=== PATIENT | female | born 1975 | race Caucasian/White ===

== ENCOUNTER → 2018-01-13 12:00 | Outpatient (CLI) | payer OTHER, SELFPAY ==
--- NOTE | 2018-01-13 12:04 | BI_ITS ---
MAMMOGRAPHY - BILATERAL SCREENING REASON FOR EXAM: Female, 42 years old. Routine annual screening examination. PERTINENT HISTORY: Non-contributory. TECHNIQUE: Digital bilateral breast mercedes (3D mammographic acquisition) in the CC and MLO projections. 2-D mediolateral oblique (MLO) and craniocaudad (CC) views of both breasts were obtained. CAD: Full Field Digital Mammography with Computer Added Detection was performed. COMPARISON: Comparison is made with prior study dated January 12, 2017 FINDINGS: Breast Composition: The breasts are heterogeneously dense, which may obscure small masses. There are no dominant masses or suspicious calcifications. No other significant abnormalities are identified. There has been no significant change since the prior study. BI/SCREENING MAMM (CAD), BILAT IMPRESSION: Stable bilateral screening mammogram. Yearly follow-up mammogram recommended. (A) ASSESSMENT CATEGORY: BIRADS Category 1: Negative. A letter regarding these results will be sent to the patient by the facility within 30 days. Approximately 10% of breast cancers are not detected by mammography. A normal mammogram should not delay biopsy of a clinically suspicious abnormality. [id number] Electronically Signed: Bryan Fowler MD at 13:12 EST Tel [phone], Service support ,
== END ==
PROVIDERS: Family Provider Internal Medicine; PCP Internal Medicine; Referring Provider Obstetrics & Gynecology; Visit Provider Obstetrics & Gynecology
DX: Z12.31 Encounter for screening mammogram for malignant neoplasm of breast (principal)
CPT/HCPCS: 77063; 77067

== ENCOUNTER → 2018-11-18 | Outpatient (CLI) | payer OTHER, SELFPAY ==
[2018-01-26 13:26] VITALS: BMI 21.6
[2018-11-18 09:23] LABS: Absolute Lymphocyte Count 1.48 X10^3/uL (0.83-4.51); Basophil# 0.02 X10^3/uL; Basophil% 0.4 % (0-1); Eosinophil# 0.11 X10^3/uL; Eosinophils% 2.2 % (0-5); Hematocrit 38.4 % (37-47); Hemoglobin 12.6 g/dL (12.0-15.0); Lymphocyte # 1.48 X10^3/ul (4.0); Lymphocyte % 29.2 % (19-41); Mean Corp Hgb Conc 32.8 g/dL (32-36); Mean Corpuscular Hgb 30.1 pg (27.0-32.0); Mean Corpuscular Volume 91.6 fL (81-99); Mean Platelet Vol. 10.1 fl (6.2-12.0); Monocyte# 0.41 X10^3/uL; Monocyte% 8.1 % (0-10); NRBC Flagged by Analyzer 0 % (0-5); Neutrophil # 3.04 X10^3/uL (2.7-7.7); Neutrophil % 59.9 % (47-70); Platelet Count 266 K/mm3 (150-450); RBC Distribution Width CV 13.1 % (11.6-14.6); RBC Distribution Width SD 43.9 fl (35.1-43.9); Red Blood Count 4.19 M/mm3 (4.2-5.4); White Blood Count 5.1 K/mm3 (4.4-11.0)
[2018-11-18 10:06] LABS: ALB/GLOB Ratio 1.3 RATIO (0.9-2.4); AST(SGOT) 11 U/L (15-37); Alanine Aminotransfer ALT/SGPT 21 U/L (13-56); Alkaline Phosphatase 43 U/L (45-117); Anion Gap 7 (5-15); BUN 13 mg/dL (7-18); BUN/Creat Ratio 17.4 RATIO (10-20); Calcium,Total 8.5 mg/dL (8.5-10.1); Chloride 105 mmol/L (98-107); Cholesterol 231 mg/dL (200); Creatinine, Serum 0.75 mg/dL (0.55-1.02); EST Glomerular Filtration Rate 90 mL/min (>60); Est Glom Filt Rate - Afr Amer 109 mL/min (>60); Globulin 3.1 g/dL (2.2-4.2); Glucose 92 mg/dL (74-106); High Density Lipoprotein 68 mg/dL; Potassium 3.8 mmol/L (3.5-5.1); Protein, Total 7.1 g/dL (6.4-8.2); Sodium Level 138 mmol/L (136-145); Triglycerides 76 mg/dL; Very Low Density Lipoprotein 15 mg/dL (5-40)
== END | disposition home or self-care (01) ==
PROVIDERS: Family Provider Internal Medicine; PCP Internal Medicine; Referring Provider Internal Medicine; Visit Provider Internal Medicine
DX: Z00.00 Encounter for general adult medical examination without abnormal findings (principal)
CPT/HCPCS: 36415; 80053; 80061; 85025

== ENCOUNTER → 2018-12-22 | Outpatient (CLI) | payer OTHER, SELFPAY ==
[2018-01-26 13:26] VITALS: BMI 21.6
--- NOTE | 2018-12-22 12:43 | BI_ITS ---
MAMMOGRAPHY - BILATERAL SCREENING REASON FOR EXAM: Female, 43 years old. Routine annual screening examination. PERTINENT HISTORY: Non-contributory. TECHNIQUE: Digital bilateral breast kathy (3D mammographic acquisition) in the CC and MLO projections. 2-D mediolateral oblique (MLO) and craniocaudad (CC) views of both breasts were obtained. CAD: Full Field Digital Mammography with Computer Added Detection was performed. COMPARISON: Comparison is made with prior study dated January 13, 2018 and January 12, 2017. FINDINGS: Breast Composition: The breasts are extremely dense, which lowers the sensitivity of mammography. There are no dominant masses or suspicious calcifications. No other significant abnormalities are identified. There has been no significant change since the prior study. BI/SCREEN MAMM (CAD) W/KATHY BILAT IMPRESSION: Stable bilateral screening mammogram. Yearly follow-up mammogram recommended. (A) ASSESSMENT CATEGORY: BIRADS Category 1: Negative. A letter regarding these results will be sent to the patient by the facility within 30 days. Approximately 10% of breast cancers are not detected by mammography. A normal mammogram should not delay biopsy of a clinically suspicious abnormality. [id number] Electronically Signed: Bryan Fowler, at 8:14 EST , Service support ,
== END | disposition home or self-care (01) ==
LOC: OPBI 12:41
PROVIDERS: Family Provider Internal Medicine; PCP Internal Medicine; Referring Provider Obstetrics & Gynecology; Visit Provider Obstetrics & Gynecology
DX: Z12.31 Encounter for screening mammogram for malignant neoplasm of breast (principal)
CPT/HCPCS: 77063; 77067

== ENCOUNTER → 2018-12-27 10:19 | Outpatient (CLI) | payer OTHER, SELFPAY ==
[2018-12-27 09:41] VITALS: BMI 21.6
--- NOTE | 2018-12-27 10:25 | RAD_ITS ---
STUDY: X-RAY - RIGHT FOOT CLINICAL: Female, 43 years old. Pain at the base of the fifth metatarsal following injury. TECHNIQUE: 3 view(s) of the foot. COMPARISON: None. FINDINGS: Normal talus, calcaneus, and tarsal bones. Normal visualized subtalar, talonavicular, calcaneocuboid, tarsal and tarsometatarsal articulations. Normal metatarsi. Normal metatarsophalangeal joint of the great toe. Normal tibial and fibular sesamoid bones. Normal interphalangeal joint of the great toe. Normal phalanges of the great toe. Normal second through fifth metatarsophalangeal joints. Normal interphalangeal joints and phalanges of the lesser toes. The soft tissue structures are unremarkable. RAD/Foot min 3 Views IMPRESSION: Normal x-ray examination of the foot. Electronically Signed: Bryan Fowler, at 11:00 EST , Service support ,
== END ==
PROVIDERS: Family Provider Internal Medicine; PCP Internal Medicine; Referring Provider Nurse Practitioner Family; Visit Provider Nurse Practitioner Family
DX: M79.671 Pain in right foot (principal)
CPT/HCPCS: 73630

== ENCOUNTER → 2019-03-21 | Outpatient (CLI) | payer OTHER, SELFPAY ==
[2019-01-19 10:34] VITALS: BMI 21.6
--- NOTE | 2019-03-21 16:00 | MRI_ITS ---
HISTORY: Sprain of the midfoot. Right side pain of foot. Injury occurred 12/26/2018. Burning pain on right side of right foot. Sprain of tarso-metatarsals Technique: Sagittal T1 and T2 fat sat, axial and coronal T1 and T2-weighted images were obtained. 185 images. Findings: A small ankle effusion is present. A small amount of fluid is present within the sinus Tarsi. Minimal arthritis is present at the first metatarsophalangeal joint with some edema within the distal end of the first metatarsal at the joint. A small first metatarsal joint effusion is present. No fracture is perceived. No malalignment is demonstrated. The plantar fascia appears normal without thickening. There is minimal subcutaneous edema within the superficial fat to the posterior aspect of the plantar fascia. The fat is preserved within the sinus Tarsi. Intrinsic muscles of the foot are normal in size, position and signal. Abnormal increased T1 weighted signal and slight increased T2-weighted signal is present within the extensor hallucis longus tendon MRI/Lower Ext/No Jt/w/o IMPRESSION: Small ankle effusion. Mild tendinosis to the extensor hallucis longus. No stress fracture to the cuboid. No evidence for peroneal insertional tendinosis. No evidence of lateral tarsometatarsal sprain. 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 at 0609 Reported and signed by: Kieran Gonsalez MD Electronically Signed: Kieran Gonsalez MD at 6:08 EST Tel , Service support ,
== END | disposition home or self-care (01) ==
LOC: MRI 15:29
PROVIDERS: PCP Internal Medicine; Referring Provider Podiatrist; Visit Provider Podiatrist
DX: M76.71 Peroneal tendinitis, right leg (principal); M84.374A Stress fracture, right foot, initial encounter for fracture; S93.621A Sprain of tarsometatarsal ligament of right foot, initial encounter
CPT/HCPCS: 73718

== ENCOUNTER → 2019-08-23 | Outpatient (CLI) | payer OTHER, SELFPAY ==
[2019-08-23 08:41] VITALS: BMI 21.6
[2019-08-30 16:15] LABS: HPV APTIMA, High Risk Negative (Negative)
== END | disposition home or self-care (01) ==
LOC: LABSPEC 17:09
PROVIDERS: PCP Internal Medicine; Referring Provider Obstetrics & Gynecology; Visit Provider Obstetrics & Gynecology
DX: Z12.4 Encounter for screening for malignant neoplasm of cervix (principal)
CPT/HCPCS: 87624; 88175; G0145

== ENCOUNTER → 2020-02-16 09:17 | Outpatient (CLI) | payer OTHER, SELFPAY ==
[2020-01-22 10:50] VITALS: BMI 21.6
[2020-02-16 09:51] LABS: Absolute Lymphocyte Count 1.56 X10^3/uL (0.83-4.51); Absolute Neutrophil Count 3.2 X10^3/uL (2.0-7.7); Basophil# 0.04 X10^3/uL; Basophil% 0.7 % (0-1); Eosinophil# 0.11 X10^3/uL; Hematocrit 38.2 % (37-47); Hemoglobin 12.3 g/dL (12.0-15.0); Lymphocyte # 1.56 X10^3/ul (4.0); Lymphocyte % 28.7 % (19-41); Mean Corp Hgb Conc 32.2 g/dL (32-36); Mean Corpuscular Hgb 30.1 pg (27.0-32.0); Mean Corpuscular Volume 93.6 fL (81-99); Mean Platelet Vol. 9.2 fl (6.2-12.0); Monocyte# 0.49 X10^3/uL; NRBC Flagged by Analyzer 0 % (0-5); Neutrophil # 3.22 X10^3/uL (2.7-7.7); Neutrophil % 59.4 % (47-70); Platelet Count 309 K/mm3 (150-450); RBC Distribution Width CV 12.2 % (11.6-14.6); RBC Distribution Width SD 42.5 fl (35.1-43.9); Red Blood Count 4.08 M/mm3 (4.2-5.4); White Blood Count 5.4 K/mm3 (4.4-11.0)
[2020-02-16 10:16] LABS: ALB/GLOB Ratio 1.3 RATIO (0.9-2.4); AST(SGOT) 13 U/L (15-37); Alanine Aminotransfer ALT/SGPT 24 U/L (13-56); Albumin, Serum 3.8 g/dL (3.2-5.0); Alkaline Phosphatase 44 U/L (45-117); Anion Gap 5 (5-15); BUN 11 mg/dL (7-18); BUN/Creat Ratio 15.7 RATIO (10-20); Calcium,Total 8.6 mg/dL (8.5-10.1); Chloride 107 mmol/L (98-107); Cholesterol 248 mg/dL (200); EST Glomerular Filtration Rate 97 mL/min (>60); Est Glom Filt Rate - Afr Amer 117 mL/min (>60); Glucose 87 mg/dL (74-106); High Density Lipoprotein 67 mg/dL; Potassium 3.7 mmol/L (3.5-5.1); Protein, Total 6.8 g/dL (6.4-8.2); Sodium Level 140 mmol/L (136-145); Triglycerides 96 mg/dL; Very Low Density Lipoprotein 19 mg/dL (5-40)
== END ==
PROVIDERS: PCP Internal Medicine; Referring Provider Internal Medicine; Visit Provider Internal Medicine
DX: Z00.00 Encounter for general adult medical examination without abnormal findings (principal)
CPT/HCPCS: 36415; 80053; 80061; 85025

== ENCOUNTER → 2020-02-27 12:40 | Outpatient (CLI) | payer OTHER, SELFPAY ==
[2020-01-22 10:50] VITALS: BMI 21.6
--- NOTE | 2020-02-27 12:41 | BI_ITS ---
MAMMOGRAPHY - BILATERAL SCREENING REASON FOR EXAM: Female, 44 years old. Routine annual screening examination. PERTINENT HISTORY: Non-contributory. TECHNIQUE: Digital bilateral breast kathy (3D mammographic acquisition) in the CC and MLO projections. 2-D mediolateral oblique (MLO) and craniocaudad (CC) views of both breasts were obtained. CAD: Full Field Digital Mammography with Computer Added Detection was performed. COMPARISON: Comparison is made with prior examination dated 12/22/2018 and 01/13/2018. FINDINGS: Breast Composition: The breasts are extremely dense, which lowers the sensitivity of mammography. There are no dominant masses or suspicious calcifications. No other significant abnormalities are identified. There has been no significant change since the prior study. BI/SCRN MAMM (CAD)W/KATHY BILAT IMPRESSION: Stable bilateral screening mammogram. Yearly follow-up mammogram recommended. (A) ASSESSMENT CATEGORY: BIRADS Category 1: Negative. A letter regarding these results will be sent to the patient by the facility within 30 days. Approximately 10% of breast cancers are not detected by mammography. A normal mammogram should not delay biopsy of a clinically suspicious abnormality. [id number] Electronically Signed: Bryan Fowler MD at 13:55 EST , Service support ,
== END ==
PROVIDERS: PCP Internal Medicine; Referring Provider Internal Medicine; Visit Provider Internal Medicine
DX: Z12.31 Encounter for screening mammogram for malignant neoplasm of breast (principal)
CPT/HCPCS: 77063; 77067

== ENCOUNTER → 2020-05-09 11:24 | Outpatient (CLI) | payer OTHER, SELFPAY ==
[2020-01-22 10:50] VITALS: BMI 21.6
[2020-05-09 13:49] LABS: NATERA MAILED SPECIMEN
== END ==
PROVIDERS: PCP Internal Medicine; Referring Provider Obstetrics & Gynecology; Visit Provider Obstetrics & Gynecology
DX: Z80.3 Family history of malignant neoplasm of breast (principal); Z80.42 Family history of malignant neoplasm of prostate
CPT/HCPCS: 36415

== ENCOUNTER → 2020-07-31 06:31 | Outpatient (CLI) | payer OTHER, SELFPAY ==
[2020-07-31 07:47] LABS: Cholesterol 273 mg/dL (200); High Density Lipoprotein 76 mg/dL; Triglycerides 126 mg/dL; Very Low Density Lipoprotein 25 mg/dL (5-40)
== END ==
PROVIDERS: PCP Internal Medicine; Referring Provider Internal Medicine; Visit Provider Internal Medicine
DX: E78.5 Hyperlipidemia, unspecified (principal)
CPT/HCPCS: 36415; 80061

== ENCOUNTER → 2020-09-27 08:10 | Outpatient (CLI) | payer OTHER, SELFPAY ==
[2020-09-27 09:16] LABS: ALB/GLOB Ratio 1.2 RATIO (0.9-2.4); AST(SGOT) 13 U/L (15-37); Alanine Aminotransfer ALT/SGPT 25 U/L (13-56); Albumin, Serum 3.8 g/dL (3.2-5.0); Alkaline Phosphatase 39 U/L (45-117); Anion Gap 6 (5-15); BUN 11 mg/dL (7-18); BUN/Creat Ratio 15.2 RATIO (10-20); Calcium,Total 8.5 mg/dL (8.5-10.1); Chloride 106 mmol/L (98-107); Cholesterol 196 mg/dL (200); Creatinine, Serum 0.72 mg/dL (0.55-1.02); EST Glomerular Filtration Rate 93 mL/min (>60); Est Glom Filt Rate - Afr Amer 112 mL/min (>60); Globulin 3.2 g/dL (2.2-4.2); Glucose 83 mg/dL (74-106); High Density Lipoprotein 66 mg/dL; Potassium 3.8 mmol/L (3.5-5.1); Sodium Level 140 mmol/L (136-145); T4 Free Direct 0.79 ng/dL (0.76-1.46); Triglycerides 81 mg/dL; Very Low Density Lipoprotein 16 mg/dL (5-40)
== END ==
PROVIDERS: PCP Internal Medicine; Referring Provider Internal Medicine; Visit Provider Internal Medicine
DX: E78.5 Hyperlipidemia, unspecified (principal)
CPT/HCPCS: 36415; 80053; 80061; 84439; 84443

== ENCOUNTER 2021-02-21 07:31 | Outpatient (CLI) | payer OTHER, SELFPAY ==
[2021-02-21 08:02] LABS: Absolute Lymphocyte Count 1.73 X10^3/uL (0.83-4.51); Absolute Neutrophil Count 3.2 X10^3/uL (2.0-7.7); Basophil# 0.04 X10^3/uL; Basophil% 0.7 % (0-1); Eosinophil# 0.16 X10^3/uL; Eosinophils% 2.9 % (0-5); Hematocrit 39.2 % (37-47); Lymphocyte # 1.73 X10^3/ul (0.83-4.51); Lymphocyte % 31.2 % (19-41); Mean Corp Hgb Conc 33.2 g/dL (32-36); Mean Corpuscular Hgb 30.8 pg (27.0-32.0); Mean Corpuscular Volume 92.9 fL (81-99); Mean Platelet Vol. 9.3 fl (6.2-12.0); Monocyte# 0.44 X10^3/uL; Monocyte% 7.9 % (0-10); NRBC Flagged by Analyzer 0 % (0-5); Neutrophil # 3.16 X10^3/uL (2.7-7.7); Neutrophil % 57.1 % (47-70); Platelet Count 285 K/mm3 (150-450); RBC Distribution Width CV 12.5 % (11.6-14.6); RBC Distribution Width SD 42.7 fl (35.1-43.9); Red Blood Count 4.22 M/mm3 (4.2-5.4); White Blood Count 5.5 K/mm3 (4.4-11.0)
[2021-02-21 08:25] LABS: ALB/GLOB Ratio 1.2 RATIO (0.9-2.4); AST(SGOT) 14 U/L (15-37); Alanine Aminotransfer ALT/SGPT 32 U/L (13-56); Albumin, Serum 4.1 g/dL (3.2-5.0); Alkaline Phosphatase 44 U/L (45-117); Anion Gap 4 (5-15); BUN 11 mg/dL (7-18); BUN/Creat Ratio 15.3 RATIO (10-20); Calcium,Total 9.1 mg/dL (8.5-10.1); Chloride 106 mmol/L (98-107); Cholesterol 229 mg/dL (200); Creatinine, Serum 0.72 mg/dL (0.55-1.02); EST Glomerular Filtration Rate 93 mL/min (>60); Est Glom Filt Rate - Afr Amer 113 mL/min (>60); Globulin 3.4 g/dL (2.2-4.2); Glucose 90 mg/dL (74-106); High Density Lipoprotein 83 mg/dL; Potassium 3.4 mmol/L (3.5-5.1); Protein, Total 7.5 g/dL (6.4-8.2); Sodium Level 139 mmol/L (136-145); Triglycerides 78 mg/dL; Very Low Density Lipoprotein 16 mg/dL (5-40)
== END 2021-02-21 23:59 | disposition short-term general hospital (02) ==
LOC: LAB 07:33
PROVIDERS: PCP Internal Medicine; Referring Provider Internal Medicine; Visit Provider Internal Medicine
DX: Z00.00 Encounter for general adult medical examination without abnormal findings (principal)
CPT/HCPCS: 36415; 80053; 80061; 85025

== ENCOUNTER 2021-03-04 12:49 | Outpatient (CLI) | payer OTHER, SELFPAY ==
--- NOTE | 2021-03-04 12:51 | BI_ITS ---
MAMMOGRAPHY - BILATERAL SCREENING REASON FOR EXAM: Female, 45 years old. Routine annual screening examination. PERTINENT HISTORY: Non-contributory. TECHNIQUE: Digital bilateral breast kathy (3D mammographic acquisition) in the CC and MLO projections. 2-D mediolateral oblique (MLO) and craniocaudad (CC) views of both breasts were obtained. CAD: Full Field Digital Mammography with Computer Added Detection was performed. COMPARISON: Comparison is made with prior study dated 08/26/2020 and 12/22/2018. FINDINGS: Breast Composition: The breasts are extremely dense, which lowers the sensitivity of mammography. 2 adjacent well-defined nodular densities are seen in the retroareolar region of the left breast. The larger measures 2 cm and most likely represent cysts. Correlation with ultrasound is recommended. No other significant abnormalities are identified. BI/SCRN MAMM (CAD)W/KATHY BILAT IMPRESSION: Findings suggestive of 2 adjacent well circumscribed nodular densities in the retroareolar areolar region of the left breast as described. Correlation with ultrasound is recommended. ASSESSMENT CATEGORY: BIRADS Category 2: Benign. A letter regarding these results will be sent to the patient by the facility within 30 days. Approximately 10% of breast cancers are not detected by mammography. A normal mammogram should not delay biopsy of a clinically suspicious abnormality. [id number] Electronically Signed: Bryan Fowler MD at 13:26 EST ,
== END 2021-03-04 23:59 | disposition short-term general hospital (02) ==
LOC: OPBI 12:49
PROVIDERS: PCP Internal Medicine; Referring Provider Nurse Practitioner Women's Health; Visit Provider Nurse Practitioner Women's Health
DX: Z12.31 Encounter for screening mammogram for malignant neoplasm of breast (principal)
CPT/HCPCS: 77063; 77067

== ENCOUNTER 2021-03-11 12:40 | Outpatient (CLI) | payer OTHER, SELFPAY ==
--- NOTE | 2021-03-11 12:41 | US_ITS ---
STUDY: ULTRASOUND BREAST - LEFT REASON FOR EXAM: Female, 45 years old. Abnormal screening mammogram. TECHNIQUE: Axial and longitudinal images of the LEFT breast were performed with a high resolution ultrasound transducer. # OF IMAGES: 18 COMPARISON: Comparison is made with prior mammogram dated 09/01/2021. FINDINGS: LEFT Breast: The retroareolar region of the left breast was examined by ultrasound. There is a 2.1 cm x 1.8 cm x 0.8 cm cyst at the 12 o''clock position of the breast. There is also evidence of a 1.6 cm x 2.5 cm x 1.1 cm cyst in the retroareolar region of the breast at the 6 o''clock position. US/Breast Limited Unilateral IMPRESSION: The mammographic abnormality corresponds to 2 adjacent cysts. Routine mammographic follow-up is recommended. ASSESSMENT CATEGORY: BIRADS Category 2: Benign. A letter regarding these results will be sent to the patient by the facility within 30 days. Electronically Signed: Bryan Fowler MD at 13:52 EST ,
== END 2021-03-11 23:59 | disposition short-term general hospital (02) ==
LOC: OPUS 12:41
PROVIDERS: PCP Internal Medicine; Referring Provider Nurse Practitioner Women's Health; Visit Provider Nurse Practitioner Women's Health
DX: R92.8 Other abnormal and inconclusive findings on diagnostic imaging of breast (principal)
CPT/HCPCS: 76642

== ENCOUNTER 2021-03-19 06:25 | Day surgery (SDC) | payer OTHER, SELFPAY ==
[2021-03-19 06:58] VITALS: BP 117/71; PULSE 61; RESP 15; TEMP 36.2; O2SAT 100; BMI 21.2
[2021-03-19] MEDS: Lactated Ringers 1,000 ML 15 ML IV (07:02)
--- NOTE | 2021-03-19 07:12 | HP.PCM_ITS ---
HPI - General HPI Narrative MARKY LOPEZ, is a 45 F who presents for screening colonoscopy secondary to age. They are referred for surgical consultation from Dr. Goldberg. Patient has not had prior colonoscopy. 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 Patient has no personal history of inflammatory bowel disease, diverticulitis, or colon cancer. They describe their bowel habits as normal without blood, or straining. Patient has no family history of inflammatory bowel disease, diverticulitis, or colon cancer. Patient completed her prep prior to today's procedure and states that everything in terms of her output is clear. [facility] Medical History Colon cancer screening Hyperlipidemia Non-smoker Preventative health care Wears contact lenses Home Medications atorvastatin 10 mg tablet 10 mg PO DAILY #90 tab 11/13/20 [Rx Last Taken Unknown] [id number] [Women's Daily Multivitamin] 1 tab PO DAILY 08/28 [History Last Taken Unknown] Allergy/AdvReac Type Severity Reaction Status Date / Time No Known Allergies Allergy Verified 03/19/21 06:41 Family History Father Hypertension Cancer Skin Mother Cancer Ovarian -BRCA neg Surgical History delivery delivered H/O dilation and curettage Hx of tubal ligation Social History household members: spouse and children number of children: 5 Smoking Status: Never smoker alcohol intake: never substance use type: does not use caffeine: Yes what type of physical activity do you participate in: none, walking and weight training seatbelt use: always do you feel safe at home: Yes additional social history: - 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 Past Medical/Surgical History Planned Operation Planned Operative Procedure/s: CSCOPE OA Previous Hospitalizations/Surgeries HX Hospitalizations: No Any Problems With Anesthesia: No You/Your Family Experience Fever (Hyperthermia) With Anes: No Cholinesterase deficiency: No Cardiovascular Hx of Irregular Heartbeat and/or Afib: No Hx Heart Attack: No Hx Congestive Heart Failure: No Hx Hypertension: No Hx Pacemaker: No Respiratory Hx Chronic Obstructive Pulmonary Disease (COPD): No Hx Asthma: No Hx Emphysema: No Hx Sleep Apnea: No Hx Respiratory Tract Infection/Cold (presently): No Do You Snore Loudly (louder than talking or can be heard): No Do You Often Feel Tired/ Fatigued/ Sleepy Dring Daytime?: No Has Anyone Observed You Stop Breathing During Sleep?: No Result (for STOP score): Negative Smoking Status: Never smoker Gastrointestinal Hx Gastroesophageal Reflux: No Hx Ulcer: No Neurological Hx Seizures: No Hx Head/Neck Injury: No Hx Headaches: No Hx Back Injury/Pain: No Does patient have nerve stimulator: No Reproduction : No Miscellaneous Recent Exposure to Contagious Disease: No Allergies No Known Allergies Allergy (Verified 03/19/21 06:41) Discharge Is Pt Admitted From a Group Home, or a Senior Care: No After D/C, Where Do you Plan to Go: Return Home Vital Signs Vital Signs Vital Signs: 03/19/21 06:58 Temperature 97.1 F L Temperature Source Temporal Pulse Rate 61 Respiratory Rate 15 Respiratory Pattern Normal Blood Pressure 117/71 Blood Pressure Mean 86 Blood Pressure Source Monitor Blood Pressure Position Supine Blood Pressure Location Right Arm Pulse Ox 100 Oxygen Delivery Method Room Air Weight Weight: 123 lb 7.342 oz Body Mass Index (BMI) 21.2 Physical Exam Const alert, oriented x3 and no apparent distress General Appearance: cooperative and comfortable GI Inspection: Negative for abdominal distention or scar Palpation: soft; Negative for tender Assessment & Plan Assessment/Plan (1) Colon cancer screening: PLAN: This is a 45-year-old female who presents with no personal or family history that increases her risk for colon cancer. She presents for screening colonoscopy today. She confirms that her prep is now complete with clear output. We reviewed the expectations of the procedure as well as how results are obtained. She agrees to proceed as described. Therefore we will proceed to the endoscopy suite for colonoscopy under local MAC as previously planned. Surgery Risks - Colonoscopy Risks Include but are not Limited To: Risks include but are not limited to: Bleeding, perforation requiring further surgery, inability to complete colonoscopy requiring barium enema.
[2021-03-19 08:05] VITALS: BP 117/71; BP 96/68; PULSE 66; RESP 16; TEMP 36.8; O2SAT 100
[2021-03-19 08:10] VITALS: BP 117/71; BP 95/66; PULSE 62; RESP 16; O2SAT 100
--- NOTE | 2021-03-19 08:11 | OP.COLON_ITS ---
Patient Name: Carina Diamond Procedure Date: 03/19/2021 7:17 AM Date of : 1975 Age: 45 Procedure: Colonoscopy Indications: Screening for colorectal malignant neoplasm Providers: Luciano Colon MD Referring MD: Fela Goldberg MD Medicines: See the Anesthesia note for documentation of the administered medications Patient Profile: This is a 45 year old female. Last Colonoscopy: none. The patient's first colonoscopy is today. Complications: No immediate complications. Estimated blood loss: Minimal. Procedure: Pre-Anesthesia Assessment: - The heart rate, respiratory rate, oxygen saturations, blood pressure, adequacy of pulmonary ventilation, and response to care were monitored throughout the procedure. After I obtained informed consent, the scope was passed under direct vision. Throughout the procedure, the patient's blood pressure, pulse, and oxygen saturations were monitored continuously. The colonoscope was introduced through the anus and advanced to the cecum, identified by the appendiceal orifice. The colonoscopy was performed without difficulty. The quality of the bowel preparation was good. Scope In: 7:35:56 AM Scope Withdrawal Time 0 hours 11 minutes 24 seconds Scope Out: 8:00:09 AM Total Procedure Duration Time 0 hours 24 minutes 13 seconds Findings: A few small-mouthed diverticula were found in the distal sigmoid colon. No biopsies or other specimens were collected for this exam. The exam was otherwise without abnormality on direct and retroflexion views. Impression: - Diverticulosis in the distal sigmoid colon. No specimens collected. - The examination was otherwise normal on direct and retroflexion views. Recommendation: - Discharge patient to home (via wheelchair). - Resume regular diet today. - Repeat colonoscopy in 10 years for screening purposes. - Continue present medications. - Use original regular Metamucil one tablespoon PO BID today. Procedure Code(s): --- Professional --- 91454, Colonoscopy, flexible; diagnostic, including collection of specimen(s) by brushing or washing, when performed (separate procedure) Diagnosis Code(s): --- Professional --- Z12.11, Encounter for screening for malignant neoplasm of colon K57.30, Diverticulosis of large intestine without perforation or abscess without bleeding CPT copyright 2017 [employer]. All rights reserved. The codes documented in this report are preliminary and upon hospitality intern review may be revised to meet current compliance requirements. Luciano Colon MD 03/19/2021 8:10:42 AM This report has been signed electronically. Number of Addenda: 0 Note Initiated On: 03/19/2021 7:17 AM
--- NOTE | 2021-03-19 08:12 | OP.CCLET_ITS ---
03/19/2021 Fela Goldberg MD [address] [place] [address] [place] [address] Re : Colonoscopy procedure for Carina Diamond Dear Dr. Goldberg This procedure was performed on March. My impressions and recommendations are as follows: Impressions : - Diverticulosis in the distal sigmoid colon. No specimens collected. - The examination was otherwise normal on direct and retroflexion views. Recommendations : - Discharge patient to home (via wheelchair). - Resume regular diet today. - Repeat colonoscopy in 10 years for screening purposes. - Continue present medications. - Use original regular Metamucil one tablespoon PO BID today. My findings are described in the full procedure note, which is enclosed. If I can be of further assistance, please feel free to contact me at Doctor phone number(s): , Work: . Sincerely, Luciano Colon MD 03/19/2021 8:10:42 AM This report has been signed electronically.
[2021-03-19 08:15] VITALS: BP 100/73; BP 117/71; PULSE 61; RESP 16; O2SAT 100
[2021-03-19 08:20] VITALS: BP 117/71; BP 97/61; PULSE 60; RESP 16; TEMP 36.8; O2SAT 100
[2021-03-19 08:33] VITALS: BP 117/71
== END 2021-03-19 23:59 | disposition home or self-care (01) ==
LOC: EN 06:26 → AC 06:26
PROVIDERS: PCP Internal Medicine; Referring Provider Internal Medicine; Visit Provider Surgery
PROC: 0DJD8ZZ Inspection of Lower Intestinal Tract, Via Natural or Artificial Opening Endoscopic (ICD-10-PCS; CPT 45378; principal; 2021-03-19 07:25)
DX: Z12.11 Encounter for screening for malignant neoplasm of colon (principal); K57.30 Diverticulosis of large intestine without perforation or abscess without bleeding; E78.5 Hyperlipidemia, unspecified
CPT/HCPCS: 45378; J7120; J2405

== ENCOUNTER → 2021-11-16 | Outpatient (CLI) | payer OTHER, SELFPAY ==
--- NOTE | 2021-11-16 13:04 | RAD_ITS ---
STUDY: X-RAY - RIGHT HAND REASON FOR EXAM: Female, 46 years old. Pain following injury to the fifth metacarpal. TECHNIQUE: 3 view(s) of the hand. COMPARISON: None. FINDINGS: Normal radiocarpal articulation. Normal distal radioulnar joint. Normal visualized carpal bones. Normal carpal articulations Normal carpometacarpal articulation of the thumb. Normal second through fifth carpometacarpal joints. Normal metacarpi. Normal metacarpophalangeal joint of the thumb. Normal interphalangeal joint of the thumb. Normal proximal and distal phalanges of the thumb. Normal metacarpophalangeal joints of the second through fifth fingers. Normal proximal and distal interphalangeal joints of the second through fifth fingers. Normal phalanges of the second through fifth fingers. The soft tissue structures are unremarkable. RAD/Hand Min 3 Views IMPRESSION: Normal x-ray examination of the hand. Electronically Signed: Bryan Fowler MD at 13:26 EDT ,
== END | disposition home or self-care (01) ==
LOC: MTRAD 13:02
PROVIDERS: PCP Internal Medicine; Referring Provider Physician Assistant Surgical; Visit Provider Physician Assistant Surgical
DX: S60.221A Contusion of right hand, initial encounter (principal)
CPT/HCPCS: 73130

== ENCOUNTER → 2022-02-11 | Outpatient (CLI) | payer OTHER, SELFPAY ==
[2022-02-11 10:27] LABS: Absolute Lymphocyte Count 1.23 X10^3/uL (0.83-4.51); Absolute Neutrophil Count 3.3 X10^3/uL (2.0-7.7); Basophil# 0.04 X10^3/uL; Basophil% 0.8 % (0-1); Eosinophil# 0.08 X10^3/uL; Eosinophils% 1.6 % (0-5); Lymphocyte # 1.23 X10^3/ul (0.83-4.51); Lymphocyte % 24.3 % (19-41); Mean Corp Hgb Conc 31.7 g/dL (32-36); Mean Corpuscular Hgb 30.2 pg (27.0-32.0); Mean Corpuscular Volume 95.3 fL (81-99); Mean Platelet Vol. 9.7 fl (6.2-12.0); Monocyte# 0.42 X10^3/uL; Monocyte% 8.3 % (0-10); NRBC Flagged by Analyzer 0 % (0-5); Neutrophil # 3.27 X10^3/uL (2.7-7.7); Neutrophil % 64.6 % (47-70); Platelet Count 321 K/mm3 (150-450); RBC Distribution Width CV 12.2 % (11.6-14.6); RBC Distribution Width SD 42.9 fl (35.1-43.9); White Blood Count 5.1 K/mm3 (4.4-11.0)
[2022-02-11 11:09] LABS: BUN 11 mg/dL (7-18); Creatinine, Serum 0.72 mg/dL (0.55-1.02); Glucose 96 mg/dL (74-106)
[2022-02-11 11:10] LABS: ALB/GLOB Ratio 1.4 RATIO (0.9-2.4); AST(SGOT) 15 U/L (15-37); Alanine Aminotransfer ALT/SGPT 27 U/L (13-56); Albumin, Serum 4.1 g/dL (3.2-5.0); Alkaline Phosphatase 42 U/L (45-117); Anion Gap 6 (5-15); BUN/Creat Ratio 15.3 RATIO (10-20); Calcium,Total 8.7 mg/dL (8.5-10.1); Chloride 105 mmol/L (98-107); Cholesterol 226 mg/dL (200); EST Glomerular Filtration Rate 93 mL/min (>60); Est Glom Filt Rate - Afr Amer 112 mL/min (>60); High Density Lipoprotein 76 mg/dL; Potassium 3.7 mmol/L (3.5-5.1); Protein, Total 7.1 g/dL (6.4-8.2); Sodium Level 138 mmol/L (136-145); Triglycerides 100 mg/dL; Very Low Density Lipoprotein 20 mg/dL (5-40)
== END | disposition home or self-care (01) ==
LOC: MTLAB 08:19
PROVIDERS: PCP Internal Medicine; Referring Provider Internal Medicine; Visit Provider Internal Medicine
DX: Z00.00 Encounter for general adult medical examination without abnormal findings (principal)
CPT/HCPCS: 36415; 80053; 80061; 85025

== ENCOUNTER → 2022-03-05 | Outpatient (CLI) | payer OTHER, SELFPAY ==
--- NOTE | 2022-03-05 08:44 | BI_ITS ---
MAMMOGRAPHY - BILATERAL SCREENING REASON FOR EXAM: Female, 46 years old. Routine annual screening examination. PERTINENT HISTORY: Non-contributory. TECHNIQUE: Digital bilateral breast kathy (3D mammographic acquisition) in the CC and MLO projections. 2-D mediolateral oblique (MLO) and craniocaudad (CC) views of both breasts were obtained. CAD: Full Field Digital Mammography with Computer Added Detection was performed. COMPARISON: Comparison is made with prior study dated 03/04/2021 and 02/27/2020. FINDINGS: Breast Composition: The breasts are extremely dense, which lowers the sensitivity of mammography. 2 adjacent well-defined nodules are seen in the retroareolar region of the left breast. The larger measures 2.5 cm x 3.6 cm. This has increased in size as compared to prior study. 2 adjacent well-defined nodules are seen in the upper lateral aspect of the left breast. The larger measures 3 cm x 2.4 cm. These most likely represent cysts. Repeat sonogram is recommended for further evaluation. No other significant abnormalities are identified. BI/SCRN MAMM (CAD)W/KATHY BILAT IMPRESSION: Bilateral breast nodules as described. Follow-up targeted ultrasound is recommended. ASSESSMENT CATEGORY: BIRADS Category 0: Incomplete. Need additional imaging evaluation. A letter regarding these results will be sent to the patient by the facility within 30 days. Approximately 10% of breast cancers are not detected by mammography. A normal mammogram should not delay biopsy of a clinically suspicious abnormality. [id number] Electronically Signed: Bryan Fowler MD at 9:35 EST ,
== END | disposition home or self-care (01) ==
LOC: OPBI 08:42
PROVIDERS: PCP Internal Medicine; Referring Provider Registered Nurse; Visit Provider Registered Nurse
DX: Z12.31 Encounter for screening mammogram for malignant neoplasm of breast (principal)
CPT/HCPCS: 77063; 77067

== ENCOUNTER → 2022-03-08 | Outpatient (CLI) | payer OTHER, SELFPAY ==
--- NOTE | 2022-03-08 08:38 | US_ITS ---
STUDY: ULTRASOUND BREAST - LEFT REASON FOR EXAM: Female, 46 years old. Abnormal screening mammogram. TECHNIQUE: Axial and longitudinal images of the LEFT breast were performed with a high resolution ultrasound transducer. # OF IMAGES: 26 COMPARISON: Comparison is made with prior mammogram dated the directly 2022. Comparison is also made of a prior sonogram of the left breast dated 03/11/2021. FINDINGS: LEFT Breast: 3 cysts are seen in the retroareolar region of the breast. The largest cyst measures 2.9 cm x 2.2 cm x 1.3 cm. This has increased in size as compared to prior study. US/Breast Limited Unilateral IMPRESSION: 3 adjacent cysts in the retroareolar region of the left breast as described. Routine mammographic follow-up recommended. ASSESSMENT CATEGORY: BIRADS Category 2: Benign. A letter regarding these results will be sent to the patient by the facility within 30 days. Electronically Signed: Bryan Fowler MD at 14:05 EST ,
== END | disposition home or self-care (01) ==
PROVIDERS: PCP Internal Medicine; Visit Provider Registered Nurse
DX: R92.8 Other abnormal and inconclusive findings on diagnostic imaging of breast (principal)
CPT/HCPCS: 76642

== ENCOUNTER → 2022-12-06 | Outpatient (CLI) | payer OTHER, SELFPAY ==
--- NOTE | 2022-12-06 09:34 | BI_ITS ---
MAMMOGRAPHY - BILATERAL DIAGNOSTIC REASON FOR EXAM: Female, 47 years old. Right breast lump. PERTINENT HISTORY: Non-contributory. TECHNIQUE: Digital bilateral breast mercedes (3D mammographic acquisition) in the CC and MLO projections. 2-D mediolateral oblique (MLO) and craniocaudad (CC) views of both breasts were obtained. CAD: Full Field Digital Mammography with Computer Added Detection was performed. COMPARISON: Comparison is made with prior study dated March 05, 2022 and FINDINGS: Breast Composition: The breasts are extremely dense, which lowers the sensitivity of mammography. There is a dominant 3.6 cm x 2.7 cm well-defined nodule in the upper outer aspect of the left breast. There is also evidence of a 1.8 cm x 1.7 cm well-defined nodule in the inferior medial portion of the left breast. Correlation with ultrasound is recommended. There are well-defined nodules in the right breast as well. Correlation with ultrasound is recommended. No other significant abnormalities are identified. BI/DIAG MAMM W/CAD, BILAT IMPRESSION: Bilateral well-defined breast nodules as described. Correlation with ultrasound is recommended. ASSESSMENT CATEGORY: BIRADS Category 0: Incomplete. Need additional imaging evaluation. A letter regarding these results will be sent to the patient by the facility within 30 days. Approximately 10% of breast cancers are not detected by mammography. A normal mammogram should not delay biopsy of a clinically suspicious abnormality. Electronically Signed: Bryan Fowler MD at 11:23 EDT ,
--- NOTE | 2022-12-06 09:34 | US_ITS ---
STUDY: ULTRASOUND BREAST - RIGHT REASON FOR EXAM: Female, 47 years old. Abnormal screening mammogram. TECHNIQUE: Axial and longitudinal images of the RIGHT breast were performed with a high resolution ultrasound transducer. # OF IMAGES: 33 COMPARISON: Comparison is made with prior mammogram done earlier in the day. FINDINGS: RIGHT Breast: Several cysts are seen in the right breast. The largest cyst is at the 9:00 position of the breast at 3 cm from the nipple. This measures 2.7 cm x 2.1 cm x 1.7 cm. There is also evidence of 2 cysts at the 9:00 position of the breast at 4 cm from the nipple. IMPRESSION: Breast cysts. ASSESSMENT CATEGORY: BIRADS Category 2: Benign. A letter regarding these results will be sent to the patient by the facility within 30 days. Electronically Signed: Bryan Fowler MD at 12:44 EDT , STUDY: ULTRASOUND BREAST - LEFT REASON FOR EXAM: Female, 47 years old. Abnormal screening mammogram. TECHNIQUE: Axial and longitudinal images of the LEFT breast were performed with a high resolution ultrasound transducer. # OF IMAGES: 33 COMPARISON: Comparison is made with prior mammogram done earlier today. FINDINGS: LEFT Breast: Multiple cysts are seen. The largest cyst is seen at the 12:00 retroareolar position of the breast measuring 3.3 cm x 2.5 cm x 1.4 cm. US/Breast Limited Unilateral IMPRESSION: Left breast cyst. ASSESSMENT CATEGORY: BIRADS Category 2: Benign. A letter regarding these results will be sent to the patient by the facility within 30 days. Electronically Signed: Bryan Fowler MD at 12:45 EDT ,
== END | disposition home or self-care (01) ==
LOC: OPBI 09:33
PROVIDERS: PCP Internal Medicine; Referring Provider Registered Nurse; Visit Provider Registered Nurse
DX: R92.8 Other abnormal and inconclusive findings on diagnostic imaging of breast (principal); N63.0 Unspecified lump in unspecified breast
CPT/HCPCS: 76642; 77062; 77066; G0279

== ENCOUNTER → 2023-01-21 | Outpatient (CLI) | payer OTHER, SELFPAY ==
[2023-01-21 12:23] LABS: Absolute Lymphocyte Count 1.36 X10^3/uL (0.83-4.51); Absolute Neutrophil Count 3.7 X10^3/uL (2.0-7.7); Basophil# 0.03 X10^3/uL; Basophil% 0.5 % (0-1); Eosinophil# 0.07 X10^3/uL; Eosinophils% 1.3 % (0-5); Hematocrit 38.4 % (37-47); Hemoglobin 12.6 g/dL (12.0-15.0); Lymphocyte # 1.36 X10^3/ul (0.83-4.51); Lymphocyte % 24.5 % (19-41); Mean Corp Hgb Conc 32.8 g/dL (32-36); Mean Corpuscular Hgb 30.7 pg (27.0-32.0); Mean Corpuscular Volume 93.7 fL (81-99); Mean Platelet Vol. 9.6 fl (6.2-12.0); Monocyte# 0.43 X10^3/uL; Monocyte% 7.7 % (0-10); NRBC Flagged by Analyzer 0 % (0-5); Neutrophil # 3.65 X10^3/uL (2.7-7.7); Neutrophil % 65.6 % (47-70); Platelet Count 286 K/mm3 (150-450); RBC Distribution Width CV 12.4 % (11.6-14.6); RBC Distribution Width SD 42.7 fl (35.1-43.9); White Blood Count 5.6 K/mm3 (4.4-11.0)
[2023-01-21 12:34] LABS: ALB/GLOB Ratio 1.3 RATIO (0.9-2.4); AST(SGOT) 19 U/L (15-37); Alanine Aminotransfer ALT/SGPT 29 U/L (13-56); Albumin, Serum 3.9 g/dL (3.2-5.0); Alkaline Phosphatase 39 U/L (45-117); Anion Gap 6 (5-15); BUN 9 mg/dL (7-18); BUN/Creat Ratio 14.4 RATIO (10-20); Calcium,Total 8.6 mg/dL (8.5-10.1); Chloride 104 mmol/L (98-107); Cholesterol 160 mg/dL (200); Creatinine, Serum 0.63 mg/dL (0.55-1.02); EST Glomerular Filtration Rate 108 mL/min (>60); Est Glom Filt Rate - Afr Amer 131 mL/min (>60); Glucose 89 mg/dL (74-106); High Density Lipoprotein 64 mg/dL; Potassium 3.7 mmol/L (3.5-5.1); Protein, Total 6.9 g/dL (6.4-8.2); Sodium Level 138 mmol/L (136-145); Triglycerides 76 mg/dL; Very Low Density Lipoprotein 15 mg/dL (5-40)
== END | disposition home or self-care (01) ==
LOC: BIMLAB 10:25
PROVIDERS: PCP Internal Medicine; Referring Provider Internal Medicine; Visit Provider Internal Medicine
DX: Z00.00 Encounter for general adult medical examination without abnormal findings (principal)
CPT/HCPCS: 36415; 80053; 80061; 85025

== ENCOUNTER → 2023-05-17 | Outpatient (CLI) | payer OTHER, SELFPAY ==
--- NOTE | 2023-05-17 11:31 | RAD_ITS ---
STUDY: X-RAY - LEFT FOOT CLINICAL: Female, 47 years old. left foot pain TECHNIQUE: 3 view(s) of the foot. COMPARISON: None. FINDINGS: Normal talus, calcaneus, and tarsal bones. Normal visualized subtalar, talonavicular, calcaneocuboid, tarsal and tarsometatarsal articulations. Normal metatarsi. Normal metatarsophalangeal joint of the great toe. Normal tibial and fibular sesamoid bones. Normal interphalangeal joint of the great toe. Normal phalanges of the great toe. Normal second through fifth metatarsophalangeal joints. Normal interphalangeal joints and phalanges of the lesser toes. The soft tissue structures are unremarkable. RAD/Foot min 3 Views IMPRESSION: Normal x-ray examination of the foot. Electronically Signed: Mahendra Sharpe MD at 20:42 EDT ,
== END | disposition home or self-care (01) ==
LOC: MTRAD 11:31
PROVIDERS: PCP Internal Medicine; Referring Provider Nurse Practitioner; Visit Provider Nurse Practitioner
DX: M21.612 Bunion of left foot (principal)
CPT/HCPCS: 73630

== ENCOUNTER → 2023-12-30 | Outpatient (CLI) | payer OTHER, SELFPAY ==
--- NOTE | 2023-12-30 13:33 | BI_ITS ---
MAMMOGRAPHY - BILATERAL SCREENING REASON FOR EXAM: Female, 48 years old. Routine annual screening examination. PERTINENT HISTORY: Non-contributory. TECHNIQUE: Digital bilateral breast kathy (3D mammographic acquisition) in the CC and MLO projections. 2-D mediolateral oblique (MLO) and craniocaudad (CC) views of both breasts were obtained. CAD: Full Field Digital Mammography with Computer Added Detection was performed. COMPARISON: Comparison is made with prior study dated December 06, 2022 and March 05, 2022. FINDINGS: Breast Composition: The breasts are extremely dense, which lowers the sensitivity of mammography. Since prior study, there has been a decrease in the size and number of nodules in both breasts as compared to prior study. These were demonstrated to be cysts on prior sonogram. No other significant abnormalities are identified. BI/SCRN MAMM (CAD)W/KATHY BILAT IMPRESSION: Interval decrease in size and number of the nodules in both breasts as described. Routine follow-up recommended.. Yearly follow-up mammogram recommended. (A) ASSESSMENT CATEGORY: BIRADS Category 2: Benign. A letter regarding these results will be sent to the patient by the facility within 30 days. Approximately 10% of breast cancers are not detected by mammography. A normal mammogram should not delay biopsy of a clinically suspicious abnormality. [id number] Electronically Signed: Bryan Fowler MD at 14:23 EST ,
== END | disposition home or self-care (01) ==
LOC: OPBI 13:33
PROVIDERS: PCP Internal Medicine; Referring Provider Nurse Practitioner Family; Visit Provider Nurse Practitioner Family
DX: Z12.31 Encounter for screening mammogram for malignant neoplasm of breast (principal)
CPT/HCPCS: 77063; 77067

== ENCOUNTER → 2024-02-20 | Outpatient (CLI) | payer OTHER, SELFPAY ==
[2024-02-20 12:17] LABS: Absolute Lymphocyte Count 1.12 X10^3/uL (0.83-4.51); Absolute Neutrophil Count 3.2 X10^3/uL (2.0-7.7); Basophil# 0.03 X10^3/uL; Basophil% 0.6 % (0-1); Eosinophil# 0.08 X10^3/uL; Eosinophils% 1.7 % (0-5); Hematocrit 36.8 % (37-47); Hemoglobin 11.6 g/dL (12.0-15.0); Lymphocyte # 1.12 X10^3/ul (0.83-4.51); Lymphocyte % 23.1 % (19-41); Mean Corp Hgb Conc 31.5 g/dL (32-36); Monocyte# 0.36 X10^3/uL; Monocyte% 7.4 % (0-10); NRBC Flagged by Analyzer 0 % (0-5); Neutrophil # 3.23 X10^3/uL (2.7-7.7); Neutrophil % 66.8 % (47-70); Platelet Count 311 K/mm3 (150-450); RBC Distribution Width CV 12.9 % (11.6-14.6); RBC Distribution Width SD 43.1 fl (35.1-43.9); White Blood Count 4.8 K/mm3 (4.4-11.0)
[2024-02-20 13:15] LABS: ALB/GLOB Ratio 1.1 RATIO (0.9-2.4); AST(SGOT) 17 U/L (15-37); Alanine Aminotransfer ALT/SGPT 18 U/L (13-56); Albumin, Serum 3.7 g/dL (3.2-5.0); Alkaline Phosphatase 40 U/L (45-117); Anion Gap 4 (5-15); BUN 11 mg/dL (7-18); BUN/Creat Ratio 14.2 RATIO (10-20); Calcium,Total 8.7 mg/dL (8.5-10.1); Chloride 108 mmol/L (98-107); Cholesterol 170 mg/dL (200); Creatinine, Serum 0.77 mg/dL (0.55-1.02); EST Glomerular Filtration Rate 85 mL/min (>60); Est Glom Filt Rate - Afr Amer 102 mL/min (>60); Globulin 3.3 g/dL (2.2-4.2); Glucose 90 mg/dL (74-106); High Density Lipoprotein 75 mg/dL; Potassium 3.8 mmol/L (3.5-5.1); Sodium Level 139 mmol/L (136-145); Triglycerides 69 mg/dL; Very Low Density Lipoprotein 14 mg/dL (5-40)
== END | disposition home or self-care (01) ==
LOC: BIMLAB 08:52
PROVIDERS: PCP Internal Medicine; Referring Provider Internal Medicine; Visit Provider Internal Medicine
DX: Z00.00 Encounter for general adult medical examination without abnormal findings (principal)
CPT/HCPCS: 36415; 80053; 80061; 85025

== ENCOUNTER → 2024-06-04 | Outpatient (CLI) | payer OTHER, SELFPAY ==
[2024-06-04 13:13] LABS: Absolute Lymphocyte Count 1.64 X10^3/uL (0.83-4.51); Absolute Neutrophil Count 6.8 X10^3/uL (2.0-7.7); Basophil# 0.06 X10^3/uL; Basophil% 0.7 % (0-1); Eosinophil# 0.09 X10^3/uL; Hemoglobin 11.5 g/dL (12.0-15.0); Lymphocyte # 1.64 X10^3/ul (0.83-4.51); Lymphocyte % 17.9 % (19-41); Mean Corp Hgb Conc 32.9 g/dL (32-36); Mean Corpuscular Hgb 29.9 pg (27.0-32.0); Mean Corpuscular Volume 90.9 fL (81-99); Mean Platelet Vol. 9.7 fl (6.2-12.0); Monocyte# 0.53 X10^3/uL; Monocyte% 5.8 % (0-10); NRBC Flagged by Analyzer 0 % (0-5); Neutrophil # 6.83 X10^3/uL (2.7-7.7); Neutrophil % 74.4 % (47-70); Platelet Count 329 K/mm3 (150-450); RBC Distribution Width CV 14.2 % (11.6-14.6); RBC Distribution Width SD 47.5 fl (35.1-43.9); Red Blood Count 3.85 M/mm3 (4.2-5.4); White Blood Count 9.2 K/mm3 (4.4-11.0)
== END | disposition home or self-care (01) ==
LOC: LAB 12:37
PROVIDERS: PCP Internal Medicine; Referring Provider Internal Medicine; Visit Provider Internal Medicine
DX: D64.9 Anemia, unspecified (principal)
CPT/HCPCS: 36415; 85025

== ENCOUNTER → 2024-06-11 | Outpatient (CLI) | payer OTHER, SELFPAY ==
[2024-06-11 14:57] LABS: Ferritin 11 ng/mL (22-378); Iron Binding Capacity,Total 316 ug/dL (250-450)
[2024-06-11 14:58] LABS: Iron 23 ug/dL (50-170); Iron Binding Capacity,Unsat 293 ug/dL (228-428); PERCENT IRON SATURATION 7.3 % (13-59)
== END | disposition home or self-care (01) ==
LOC: LAB 12:34
PROVIDERS: PCP Internal Medicine; Referring Provider Internal Medicine; Visit Provider Internal Medicine
DX: D64.9 Anemia, unspecified (principal)
CPT/HCPCS: 36415; 82728; 83540; 83550

== ENCOUNTER → 2024-06-26 | Outpatient (CLI) | payer OTHER, SELFPAY | END | disposition home or self-care (01) | LOC: LABSPEC 09:38 | PROVIDERS: PCP Internal Medicine; Referring Provider Internal Medicine; Visit Provider Internal Medicine | DX: D64.9 Anemia, unspecified (principal) | CPT/HCPCS: 82274 ==

== ENCOUNTER → 2024-08-23 | Outpatient (CLI) | payer OTHER, SELFPAY ==
--- NOTE | 2024-08-23 06:58 | CT_ITS ---
PROCEDURE: LIMITED CHEST CT CARDIAC ONLY 08/23/2024 REASON FOR EXAM: SCREENING FOR CARDIOVASCULAR CONDITION TECHNIQUE: LIMITED CHEST CT CARDIAC ONLY CONTRAST: None One or more dose reduction techniques were used (e.g., Automated exposure control, adjustment of the mA and/or kV according to patient size, use of iterative reconstruction technique). RADIATION DOSE SUMMARY: CTDlvol: 12.19 mGy DLP: 219.42 mGycm COMPARISON: None FINDINGS: Coronary artery calcification. The heart is not enlarged. The lungs are clear. CT/Limited Chest CT Cardiac Only IMPRESSION: Coronary artery calcification. Reading Location: [place] [id number]
--- OUTSIDE RECORDS SUMMARY | 2024-08-23 07:09 | XMS RPT_ITS | CCD ---
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 Fela Goldberg Primary Care Provider [phone] Dr. Fela Goldberg Referring Provider [phone] CARRIE Mancuso Attending Provider Dr. Fela Goldberg Primary Care Provider [phone] Dr. Fela Goldberg Referring Provider [phone] CARRIE Mancuso Attending Provider DA Guillermo Attending Provider Dr. Fela Goldberg Attending Provider [phone] Dr. Fela Goldberg Primary Care Provider [phone]) Dr. Fela Goldberg Referring Provider [phone] Carina Fenton DO Primary Care Provider Dr. Fela Goldberg Primary Care Provider [phone]) Dr. Fela Goldberg Referring Provider [phone] CARRIE Resendiz Attending Provider DA Guillermo Attending Provider Dr. Fela Goldberg Primary Care Provider [phone]) Dr. Fela Goldberg Referring Provider [phone] SANJANA Durán Attending Provider [phone] Dr. Fela Goldberg MD Primary Care Provider Oleghe MD, Dr. Chahal Attending Provider [phone] Yusuf LINDA, Dr. Chahal Referring Provider [phone] Yusuf LINDA, Dr. Chahal Primary Care Provider Yusuf LINDA, Dr. Chahal Attending Provider [phone] Yusuf LINDA, Dr. Chahal Referring Provider [phone] Oleghe, Efewongbe Primary Care Unavailable Oleghe, Efewongbe Referring Unavailable Oleghe, Efewongbe Attending Unavailable Barkman, Selena Referring Unavailable Barkman, Selena Attending Unavailable Oleghe, Efewongbe Primary Care Unavailable Oleghe, Efewongbe Primary Care Unavailable Oleghe, Efewongbe Referring Unavailable Oleghe, Efewongbe Attending Unavailable Barkman, Selena Attending Unavailable Oleghe, Efewongbe Primary Care Unavailable Oleghe, Efewongbe Referring Unavailable Oleghe, Efewongbe Referring Unavailable Oleghe, Efewongbe Primary Care Unavailable Oleghe, Efewongbe Attending Unavailable Oleghe, Efewongbe Referring Unavailable Oleghe, Efewongbe Primary Care Unavailable Oleghe, Efewongbe Attending Unavailable Oleghe, Efewongbe Primary Care Unavailable Oleghe, Efewongbe Referring Unavailable Oleghe, Efewongbe Attending Unavailable Oleghe, Efewongbe Referring Unavailable Oleghe, Efewongbe Attending Unavailable Oleghe, Efewongbe Primary Care Unavailable Medications Current Medications Medication Drug Class(es) Dates Sig (Normalized) Sig (Original) doxycycline hyclate 100 mg oral tablet (1 source) Tetracycline-cla ss Drug Start: 05-26-2022 End: 06-02-2022 take 1 tablet by mouth twice daily doxycycline (VIBRA-TABS) 100 mg tablet Take 1 tablet by mouth twice daily for 7 days. 14 tablet 0 05/26/2022 06/02/2022 Active Comment on above: Take 1 tablet by hay th twice daily for 7 days. ferrous sulfate 325 mg oral tablet (1 source) Start: 06-14-2024 take 1 tablet by mouth once daily Ferrous Sulfate 325 mg (65 mg iron) tablet Active 325 mg PO daily June 14, 2024 12:00am Multivitamin (One Daily Multivitamin) tablet (7 sources) Start: 01-20-2022 take 1 tablet by mouth once daily Multivitamin (One Daily Multivitamin) tablet Active 1 {tbl} PO DAILY January 20, 2022 1:00am Start: 01-20-2022 take 1 tablet by hay th once daily Multivitamin (One Daily Multivitamin) tablet Active 1 TABLET PO DAILY January 20, 2022 1:00am Start: 01-20-2022 take 1 tablet by hay th once daily Multivitamin (One Daily Multivitamin) tablet Active 1 TABLET PO DAILY January 20, 2022 12:00am psyllium 3400 mg powder for oral suspension (7 sources) Start: 11-23-2021 Psyllium Husk (Metamucil) 3.4 gram/5.4 gram powder Active 1 tbsp PO DAILY November 23, 2021 12:00am mix into at least 8 oz of water or juice before administering Start: 11-23-2021 Psyllium Husk (Metamucil) 3.4 gram/5.4 gram powder Active 1 tbsp PO DAILY November 23, 2021 12:00am mix into at least 8 oz of water or juice before administering Completed/Discontinued Medications Medication Drug Class(es) Dates Sig (Normalized) Sig (Original) atorvastatin 20 mg oral tablet (20 sources) HMG-CoA Reductase Inhibitor Start: 02-11-2022 End: 05-08-2024 take 1 tablet by mouth once daily Atorvastatin 20 mg tablet Discontinued 0 .ROUTE .COMPLEX January 25, 2024 8:22pm May 08, 2024 1:16pm TAKE 1 TABLET BY MOUTH ONCE DAILY Start: 07-31-2020 End: 02-11-2022 take 1 tablet by mouth once daily Atorvastatin 10 mg tablet Discontinued 10 mg PO DAILY October 19, 2021 8:14am February 11, 2022 2:31pm benzonatate 100 mg oral capsule (1 source) Non-narcotic Antitussive Start: 12-11-2014 take 1 capsule by mouth every eight hours as needed benzonatate (TESSALON PERLES) 100 mg capsule Take 1 capsule by mouth three times daily as needed for Cough. 20 capsule 0 12/11/2014 Active Comment on above: Take 1 capsule by mo [facility] three times daily as needed for Cough. calcium carbonate 1500 mg oral tablet (7 sources) Start: 01-20-2022 End: 12-01-2022 take 1 tablet by mouth once daily Calcium Carbonate (Calcium 600) 600 mg calcium (1,500 mg) tablet Discontinued 600 mg PO DAILY January 20, 2022 1:00am December 01, 2022 10:56am Calcium Carbonate / vitamin D3 (1 source) CALCIUM CARBONATE/VITAMIN D3 (CALCIUM + D ORAL) Take by mouth. 0 Active Comment on above: Take by mouth. ciprofloxacin 500 mg oral tablet (4 sources) Quinolone Antimicrobial Start: 09-13-2022 End: 12-01-2022 take 1 tablet by mouth twice daily Ciprofloxacin Hcl (Cipro) 500 mg tablet Discontinued 500 mg PO TWICE A DAY September 13, 2022 12:00am December 01, 2022 10:56am Ghcncyspdmce-Dh-Lyn n-Minerals (Women's Daily Multivitamin) 18-0.4 mg Tablet (8 sources) Start: 03-16-2021 End: 11-16-2021 Lcygilyzxysn-Oy-Ol on-Minerals (Women's Daily Multivitamin) 18-0.4 mg Tablet Discontinued 1 {tbl} PO DAILY March 16, 2021 1:00am November 16, 2021 1:05pm Start: 03-16-2021 End: 11-16-2021 take 1 tablet by mouth once daily Bqzutcdisifp-Xi-Aicd-Minerals (Women's D aily Multivitamin) 18-0.4 mg Tablet Discontinued 1 TABLET PO DAILY March 16, 2021 12:00am November 16, 2021 12:05pm Start: 03-16-2021 End: 11-16-2021 take 1 tablet by mouth once daily Tbglupfdiyvc-Pi-Vpjg-Minerals (Women's D aily Multivitamin) 18-0.4 mg Tablet Discontinued 1 TABLET PO DAILY March 16, 2021 1:00am November 16, 2021 1:05pm Problems Active Problems Problem Classification Problem Date Documented Date Episodic/Chronic Acquired foot deformities (4 sources) Bunion; Translations: [Bunion of left foot] 05-17-2023 Episodic Deficiency and other anemia (2 sources) Anemia; Translations: [Anemia, unspecified] 02-20-2024 Episodic Deficiency and other anemia (1 source) Anemia, unspecified; Translations: [Anemia, unspecified] Onset: 07-03-2024 Episodic Disorders of lipid metabolism (9 sources) Hyperlipidemia; Translations: [Hyperlipidemia, unspecified] Onset: 08-17-2024 03-16-2021 Chronic Comment on above: ON MED Diverticulosis and diverticulitis (7 sources) Diverticular disease; Translations: [Diverticulosis of intestine, part unspecified, without perforation or abscess without bleeding] 11-23-2021 Chronic Intestinal infection (5 sources) Traveler's diarrhea; Translations: [Infectious gastroenteritis and colitis, unspecified] 09-13-2022 Episodic Nonmalignant breast conditions (5 sources) Breast lump; Translations: [Unspecified lump in unspecified breast] 12-01-2022 Episodic Comment on above: diagnostic mammogram Other connective tissue disease (1 source) Bursitis of olecranon of left elbow; Translations: [Olecranon bursitis, left elbow] Episodic Residual codes; unclassified (8 sources) Family history of malignant neoplasm of ovary; Translations: [Family history of malignant neoplasm of ovary] 2020 Episodic Comment on above: Negative EMPOWER misa tMother dec age 65 ovarian cancer Skin and subcutaneous tissue infections (1 source) Infection of skin; Translations: [Local infection of the skin and subcutaneous tissue, unspecified] Episodic Superficial injury; contusion (10 sources) Contusion of hand; Translations: [Contusion of right hand, initial encounter] Episodic Past or Other Problems Problem Classification Problem Date Documented Da te Episodic/Chronic Other screening for suspected conditions (not mental disorders or infectious disease) (9 sources) Patient encounter status; Translations: [Encounter for screening for malignant neoplasm of colon] Onset: 01-26-2024 01-21-2021 Episodic Results Test Name Value Interpretation Reference Range Facility Stool Occult Blood iFOBon STOB Negative Normal [facility] Comment on above: Performed By: #### M 100.8689 #### [facility] [address] [place], [place], [id number] Stool gastrointestinal hemog lobin detection by immunologic methodOrdered By: Fela Goldberg on 06-26-2024 Lower GI hemoglobin IA Ql (Stl) [facility] Ferritinon 06-11-2024 Ferritin [Mass/Vol] 11 ng/mL Low 22-378 [facility] Comment on above: Performed By: #### L 503.6550, L503.6030 #### [facility] [address] [place], [place], [address] Iron measurement (mass/mass) Ordered By: Fela Goldberg on 06-11-2024 Iron (Unsp spec) [Mass/Mass] 23 ug/dL Low 50-170 [facility] Iron+Iron Binding Capacityon 06-11-2024 Iron [Mass/Vol] 23 ug/dL Low 50-170 [facility] Comment on above: Performed By: #### L 503.6550, L503.6030 #### [facility] [address] [place], [place], [id number] UIBC 293 ug/dL Normal 228-428 [facility] Comment on above: Performed By: #### L 503.6550, L503.6030 #### [facility] [address] [place], [place], [address] No Panel InformationOrdered By: Fela Goldberg on 06-11-2024 Unsaturated Iron Binding Capacity 293 ug/dL 228-428 [facility] Serum or plasma ferritin avtar surement (mass/volume)Ordered By: Fela Goldberg on 06-11-2024 Ferritin [Mass/Vol] 11 ng/mL Low 22-378 [facility] Serum or plasma iron saturat ion measurement (mass fraction)Ordered By: Fela Goldberg on 06-11-2024 Iron saturation [Mass fraction] 7.3 % Low 13-59 [facility] Comment on above: Previous reported re sult: 7.0 %Edited by: AUTOINDeborah on 06/11/24:1458 AMENDED REPORT 06/11/24 1458 IRON SATURATION previously reported as: 7.0 L % Absolute lymphocyte countOrd ered By: Fela Goldberg on 06-04-2024 Lymphocytes Auto (Unsp spec) [#/Vol] 1.64 10*3/uL 0.83-4.51 [facility] Absolute neutrophil countOrd ered By: Fela Goldberg on 06-04-2024 Neutrophils (Bld) [#/Vol] 6.8 10*3/uL 2.0-7.7 [facility] Automated lymphocyte count a s percentage of total leukocytesOrdered By: Fela Goldberg on 06-04-2024 Lymphocytes/100 WBC Auto (Unsp spec) 17.9 % Low 19-41 [facility] Basophil percentageOrdered B y: Fela Goldberg on 06-04-2024 Basophils/100 WBC (Bld) 0.7 % 0-1 [facility] CBC W/Diff, Automatedon 05-09 Absolute Lymph 1.64 X10 3/uL Normal 0.83-4.51 [facility] Comment on above: Performed By: #### L 100.0100 #### [facility] [address] [place], [address] Absolute Neut 6.8 X10 3/uL Normal 2.0-7.7 [facility] Comment on above: Performed By: #### L 100.0100 #### [facility] [address] [place], [address] Basophils/100 WBC (Bld) 0.7 % Normal 0-1 [facility] Comment on above: Performed By: #### L 100.0100 #### [facility] [address] [place], [address] Eosinophils/100 WBC (Bld) 1.0 % Normal 0-5 [facility] Comment on above: Performed By: #### L 100.0100 #### [facility] [address] [place], [address] Erythrocyte distribution width (RBC) [Ratio] 14.2 % Normal 11.6-14.6 [facility] Comment on above: Performed By: #### L 100.0100 #### [facility] [address] [place], [address] Hematocrit (Bld) [Volume fraction] 35.0 % Low 37-47 [facility] Comment on above: Performed By: #### L 100.0100 #### [facility] [address] [place], [address] Hemoglobin (Bld) [Mass/Vol] 11.5 g/dL Low 12.0-15.0 [facility] Comment on above: Performed By: #### L 100.0100 #### [facility] [address] [place], [address] IG% 0.200 Normal 0.0-0.9 [facility] Comment on above: Result Comment: IG% - Immature Granulocytes (promyelocytes, myelocytes and metamyelocytes) > 1% indicates that a LEFT SHIFT is Present. Performed By: #### L 100.0100 #### [facility] [address] [facility] [place], [address] Lymphocytes/100 WBC (Bld) 17.9 % Low 19-41 [facility] Comment on above: Performed By: #### L 100.0100 #### [facility] [address] [facility] [place], [address] MCH (RBC) [Entitic mass] 29.9 pg Normal 27.0-32.0 [facility] Comment on above: Performed By: #### L 100.0100 #### [facility] [address] [place], [address] MCHC (RBC) [Mass/Vol] 32.9 g/dL Normal 32-36 [facility] Comment on above: Performed By: #### L 100.0100 #### [facility] [address] [facility] [place], [address] MCV (RBC) [Entitic vol] 90.9 fL Normal 81-99 [facility] Comment on above: Performed By: #### L 100.0100 #### [facility] [address] [place], [address] Monocytes/100 WBC (Bld) 5.8 % Normal 0-10 [facility] Comment on above: Performed By: #### L 100.0100 #### [facility] [address] [place], [address] Neutrophils/100 WBC (Bld) 74.4 % High 47-70 [facility] Comment on above: Performed By: #### L 100.0100 #### [facility] [address] [place], [address] Nucleated RBC (Bld) [#/Vol] 0 10*3/uL Normal 0-5 [facility] Comment on above: Performed By: #### L 100.0100 #### [facility] [address] [place], [address] Platelet mean volume (Bld) [Entitic vol] 9.7 fL Normal 6.2-12.0 [facility] Comment on above: Performed By: #### L 100.0100 #### [facility] [address] [place], [address] Platelets (Bld) [#/Vol] 329 10*3/uL Normal 150-450 [facility] Comment on above: Performed By: #### L 100.0100 #### [facility] [address] [place], [address] RBC (Bld) [#/Vol] 3.85 10*6/uL Low 4.2-5.4 [facility] Comment on above: Performed By: #### L 100.0100 #### [facility] [address] [place], [address] RDW SD 47.5 fl High 35.1-43.9 [facility] Comment on above: Performed By: #### L 100.0100 #### [facility] [address] [place], [place], [address] WBC (Bld) [#/Vol] 9.2 10*3/uL Normal 4.4-11.0 [facility] Comment on above: Performed By: #### L 100.0100 #### [facility] [address] [place], [place], [id number] Eosinophil percentageOrdered By: Abebanew glarusefrain Goldberg on 06-04-2024 Eosinophils/100 WBC (Bld) 1.0 % 0-5 [facility] Erythrocyte distribution wid th ratioOrdered By: [facility] Hinojosachrystal on 06-04-2024 Erythrocyte distribution width (RBC) [Ratio] 14.2 % 11.6-14.6 [facility] Erythrocyte distribution wid th standard deviationOrdered By: [facility] Hospital[facility]rain Goldberg on 06-04-2024 Erythrocyte distribution width (RBC) [Ratio] 47.5 fl High 35.1-43.9 [facility] Hematocrit Auto (Bld) [Volum e fraction]Ordered By: [facility] Hinojosachrystal on 06-04-2024 Hematocrit (Bld) [Volume fraction] 35.0 % Low 37-47 [facility] Hemoglobin measurementOrdere d By: Fela Goldberg on 06-04-2024 Hemoglobin (Bld) [Mass/Vol] 11.5 g/dL Low 12.0-15.0 [facility] Immature granulocytes/100 WB C Auto (Bld)Ordered By: brendanew glarusefrain Goldberg on 06-04-2024 Immature granulocytes/100 WBC (Bld) 0.200 % 0.0-0.9 [facility] Comment on above: IG% - Immature Granu locytes (promyelocytes, myelocytes and metamyelocytes) > 1% indicates that a LEFT SHIFT is Present. MCV (mean corpuscular volume ) determinationOrdered By: Fela Goldberg on 06-04-2024 MCV (RBC) [Entitic vol] 90.9 fL 81-99 [facility] Mean corpuscular hemoglobin (MCH) determinationOrdered By: Fela Goldberg 06-04-2024 MCH (RBC) [Entitic mass] 29.9 pg 27.0-32.0 [facility] Mean corpuscular hemoglobin concentration (MCHC) determinationOrdered By: Kaylahbrendamichelefrain Hinojosabrittanychrystal on 06-04-2024 MCHC (RBC) [Mass/Vol] 32.9 g/dL 32-36 [facility] Mean platelet volume determi nationOrdered By: Kaylahbrendamichelefrain Hinojosabrittanychrystal on 06-04-2024 Platelet mean volume (Bld) [Entitic vol] 9.7 fL 6.2-12.0 [facility] Monocyte percentageOrdered B y: Fela Hinojosabrittanychrystal on 06-04-2024 Monocytes/100 WBC (Bld) 5.8 % 0-10 [facility] Neutrophil percentageOrdered By: Abebanew glarusefrain Hinojosabrittanychrystal on 06-04-2024 Neutrophils/100 WBC (Bld) 74.4 % High 47-70 [facility] Nucleated red blood cell per centageOrdered By: Abebajean Ashishbrittanychrystal on 06-04-2024 Nucleated RBC/100 WBC (Bld) [Ratio] 0 % 0-5 [facility] Platelet countOrdered By: Kaylah mau Ashishbrittanychrystal on 06-04-2024 Platelets (Bld) [#/Vol] 329 10*3/uL 150-450 [facility] RBC Auto (Bld) [#/Vol]Ordere d By: Fela Ashishbrittanychrystal on 06-04-2024 RBC (Bld) [#/Vol] 3.85 10*6/uL Low 4.2-5.4 [facility] White blood cell (WBC) count Ordered By: Abebamichelefrain Hinojosabrittanychrystal on 06-04-2024 WBC (Bld) [#/Vol] 9.2 10*3/uL 4.4-11.0 [facility] Absolute lymphocyte countOrd ered By: Kaylahbrendamichelefrain Hinojosabrittanychrystal on 02-20-2024 Lymphocytes Auto (Unsp spec) [#/Vol] 1.12 10*3/uL 0.83-4.51 [facility] Absolute neutrophil countOrd ered By: Fela Hinojosabrittanychrystal on 02-20-2024 Neutrophils (Bld) [#/Vol] 3.2 10*3/uL 2.0-7.7 [facility] Albumin to globulin ratioOrd ered By: Fela Goldberg on 02-20-2024 Albumin/Globulin [Mass ratio] 1.1 {ratio} 0.9-2.4 [facility] Automated lymphocyte count a s percentage of total leukocytesOrdered By: Kaylahbrendamichelefrain Hinojosabrittanychrystal on 02-20-2024 Lymphocytes/100 WBC Auto (Unsp spec) 23.1 % 19-41 [facility] Basophil percentageOrdered B y: Kaylahbrendamichelefrain Hinojosabrittanychrystal on 02-20-2024 Basophils/100 WBC (Bld) 0.6 % 0-1 [facility] Bilirubin, totalOrdered By: Kaylahbrendamichelefrain Hinojosabrittanychrystal on 02-20-2024 Bilirubin [Mass/Vol] 0.50 mg/dL 0.20-1.00 [facility] Comment on above: For patients on eltr ombopag therapy, use of Dimension [place] TBIL is not recommended. Blood urea nitrogen (BUN)/cr eatinine ratioOrdered By: Kaylahmau Goldberg on 02-20-2024 Urea nitrogen/Creatinine [Mass ratio] 14.2 mg/mg 10-20 [facility] CBC W/Diff, Automatedon 02-07 Absolute Lymph 1.12 X10 3/uL Normal 0.83-4.51 [facility] Comment on above: Performed By: #### L 100.0100, L500.4050, L500.4100 #### [facility] [address] [place], [address] Absolute Neut 3.2 X10 3/uL Normal 2.0-7.7 [facility] Comment on above: Performed By: #### L 100.0100, L500.4050, L500.4100 #### [facility] [address] [place], [address] Basophils/100 WBC (Bld) 0.6 % Normal 0-1 [facility] Comment on above: Performed By: #### L 100.0100, L500.4050, L500.4100 #### [facility] [address] [place], [address] Eosinophils/100 WBC (Bld) 1.7 % Normal 0-5 [facility] Comment on above: Performed By: #### L 100.0100, L500.4050, L500.4100 #### [facility] [address] [place], [address] Erythrocyte distribution width (RBC) [Ratio] 12.9 % Normal 11.6-14.6 [facility] Comment on above: Performed By: #### L 100.0100, L500.4050, L500.4100 #### [facility] [address] [place], [address] Hematocrit (Bld) [Volume fraction] 36.8 % Low 37-47 [facility] Comment on above: Performed By: #### L 100.0100, L500.4050, L500.4100 #### [facility] [address] [place], [address] Hemoglobin (Bld) [Mass/Vol] 11.6 g/dL Low 12.0-15.0 [facility] Comment on above: Performed By: #### L 100.0100, L500.4050, L500.4100 #### [facility] [address] [place], [address] IG% 0.400 Normal 0.0-0.9 [facility] Comment on above: Result Comment: IG% - Immature Granulocytes (promyelocytes, myelocytes and metamyelocytes) > 1% indicates that a LEFT SHIFT is Present. Performed By: #### L 100.0100, L500.4050, L500.4100 #### [facility] [address] [place], [address] Lymphocytes/100 WBC (Bld) 23.1 % Normal 19-41 [facility] Comment on above: Performed By: #### L 100.0100, L500.4050, L500.4100 #### [facility] [address] [place], [address] MCH (RBC) [Entitic mass] 29.0 pg Normal 27.0-32.0 [facility] Comment on above: Performed By: #### L 100.0100, L500.4050, L500.4100 #### [facility] [address] [place], [address] MCHC (RBC) [Mass/Vol] 31.5 g/dL Low 32-36 [facility] Comment on above: Performed By: #### L 100.0100, L500.4050, L500.4100 #### [facility] [address] [place], [address] MCV (RBC) [Entitic vol] 92.0 fL Normal 81-99 [facility] Comment on above: Performed By: #### L 100.0100, L500.4050, L500.4100 #### [facility] [address] [place], [address] Monocytes/100 WBC (Bld) 7.4 % Normal 0-10 [facility] Comment on above: Performed By: #### L 100.0100, L500.4050, L500.4100 #### [facility] [address] [place], [address] Neutrophils/100 WBC (Bld) 66.8 % Normal 47-70 [facility] Comment on above: Performed By: #### L 100.0100, L500.4050, L500.4100 #### [facility] [address] [place], [address] Nucleated RBC (Bld) [#/Vol] 0 10*3/uL Normal 0-5 [facility] Comment on above: Performed By: #### L 100.0100, L500.4050, L500.4100 #### [facility] [address] [place], [address] Platelet mean volume (Bld) [Entitic vol] 10.0 fL Normal 6.2-12.0 [facility] Comment on above: Performed By: #### L 100.0100, L500.4050, L500.4100 #### [facility] [address] [place], [address] Platelets (Bld) [#/Vol] 311 10*3/uL Normal 150-450 [facility] Comment on above: Performed By: #### L 100.0100, L500.4050, L500.4100 #### [facility] [address] [place], [address] RBC (Bld) [#/Vol] 4.00 10*6/uL Low 4.2-5.4 [facility] Comment on above: Performed By: #### L 100.0100, L500.4050, L500.4100 #### [facility] [address] [place], [address] RDW SD 43.1 fl Normal 35.1-43.9 [facility] Comment on above: Performed By: #### L 100.0100, L500.4050, L500.4100 #### [facility] [address] [place], [address] WBC (Bld) [#/Vol] 4.8 10*3/uL Normal 4.4-11.0 [facility] Comment on above: Performed By: #### L 100.0100, L500.4050, L500.4100 #### [facility] [address] [place], [address] Carbon dioxide measurementOr dered By: Fela Goldberg on 02-20-2024 CO2 [Moles/Vol] 27.0 mmol/L 21.0-32.0 [facility] Chloride measurementOrdered By: Fela Goldberg on 02-20-2024 Chloride [Moles/Vol] 108 mmol/L High 98-107 [facility] Comprehensive Metabolic Prof ilon 02-20-2024 Albumin [Mass/Vol] 3.7 g/dL Normal 3.2-5.0 [facility] Comment on above: Performed By: #### L 100.0100, L500.4050, L500.4100 #### [facility] [address] [place], [address] Albumin/Globulin [Mass ratio] 1.1 {ratio} Normal 0.9-2.4 [facility] Comment on above: Performed By: #### L 100.0100, L500.4050, L500.4100 #### [facility] [address] [place], [address] ALK P 40 U/L Low 45-117 [facility] Comment on above: Performed By: #### L 100.0100, L500.4050, L500.4100 #### [facility] [address] [place], [address] ALT [Catalytic activity/Vol] 18 U/L Normal 13-56 [facility] Comment on above: Performed By: #### L 100.0100, L500.4050, L500.4100 #### [facility] [address] [place], [address] AST [Catalytic activity/Vol] 17 U/L Normal 15-37 [facility] Comment on above: Performed By: #### L 100.0100, L500.4050, L500.4100 #### [facility] [address] [place], [address] Bilirubin [Mass/Vol] 0.50 mg/dL Normal 0.20-1.00 [facility] Comment on above: Result Comment: For patients on eltrombopag therapy, use of Dimension [place] TBIL is not recommended. Performed By: #### L 100.0100, L500.4050, L500.4100 #### [facility] [facility] [address] [place], [address] BUN/CRE 14.2 RATIO Normal 10-20 [facility] Comment on above: Performed By: #### L 100.0100, L500.4050, L500.4100 #### [facility] [address] [place], [address] CA,Total 8.7 mg/dL Normal 8.5-10.1 [facility] Comment on above: Performed By: #### L 100.0100, L500.4050, L500.4100 #### [facility] [address] [place], [address] Chloride [Moles/Vol] 108 mmol/L High 98-107 [facility] Comment on above: Performed By: #### L 100.0100, L500.4050, L500.4100 #### [facility] [address] [place], [address] CO2 [Moles/Vol] 27.0 mmol/L Normal 21.0-32.0 [facility] Comment on above: Performed By: #### L 100.0100, L500.4050, L500.4100 #### [facility] [address] [place], [address] Creatinine [Mass/Vol] 0.77 mg/dL Normal 0.55-1.02 [facility] Comment on above: Result Comment: The validity of the calculated GFR GFRAA in patients over 70 years has not been determined. Clinical correlation is essential. Performed By: #### L 100.0100, L500.4050, L500.4100 #### [facility] [address] [place], [address] EST GFR - AA 102 mL/min Normal >60 [facility] Comment on above: Result Comment: Afri can Burmese GFR Calc Performed By: #### L 100.0100, L500.4050, L500.4100 #### [facility] [address] [place], [address] GAP 4 Low 5-15 [facility] Comment on above: Performed By: #### L 100.0100, L500.4050, L500.4100 #### [facility] [address] [place], [address] GFR/1.73 sq M.predicted among non-blacks MDRD (S/P/Bld) [Vol rate/Area] 85 mL/min/{1.73_m2} Normal >60 [facility] Comment on above: Result Comment: Non- GFR Calc Performed By: #### L 100.0100, L500.4050, L500.4100 #### [facility] [address] [place], [address] Globulin (S) [Mass/Vol] 3.3 g/dL Normal 2.2-4.2 [facility] Comment on above: Performed By: #### L 100.0100, L500.4050, L500.4100 #### [facility] [address] [place], [address] Glucose [Mass/Vol] 90 mg/dL Normal 74-106 [facility] Comment on above: Performed By: #### L 100.0100, L500.4050, L500.4100 #### [facility] [address] [place], [address] Potassium [Moles/Vol] 3.8 mmol/L Normal 3.5-5.1 [facility] Comment on above: Performed By: #### L 100.0100, L500.4050, L500.4100 #### [facility] [address] [place], [address] Sodium [Moles/Vol] 139 mmol/L Normal 136-145 [facility] Comment on above: Performed By: #### L 100.0100, L500.4050, L500.4100 #### [facility] [address] [place], [address] T PROT 7.0 g/dL Normal 6.4-8.2 [facility] Comment on above: Performed By: #### L 100.0100, L500.4050, L500.4100 #### [facility] [address] [place], [address] Urea nitrogen [Mass/Vol] 11 mg/dL Normal 7-18 [facility] Comment on above: Performed By: #### L 100.0100, L500.4050, L500.4100 #### [facility] [address] [place], [address] Eosinophil percentageOrdered By: Fela Goldberg on 02-20-2024 Eosinophils/100 WBC (Bld) 1.7 % 0-5 [facility] Erythrocyte distribution wid th ratioOrdered By: Fela Goldberg on 02-20-2024 Erythrocyte distribution width (RBC) [Ratio] 12.9 % 11.6-14.6 [facility] Erythrocyte distribution wid th standard deviationOrdered By: Fela Goldberg on 02-20-2024 Erythrocyte distribution width (RBC) [Ratio] 43.1 fl 35.1-43.9 [facility] Glomerular filtration rate ( GFR) estimationOrdered By: Fela Goldberg on 02-20-2024 GFR/1.73 sq M.predicted among non-blacks MDRD (S/P/Bld) [Vol rate/Area] 85 mL/min/{1.73_m2} >60 [facility] Comment on above: Non- GFR Calc Glucose measurementOrdered B y: Fela Goldberg on 02-20-2024 Glucose [Mass/Vol] 90 mg/dL 74-106 [facility] Hematocrit Auto (Bld) [Volum e fraction]Ordered By: Fela Goldberg on 02-20-2024 Hematocrit (Bld) [Volume fraction] 36.8 % Low 37-47 [facility] Hemoglobin measurementOrdere d By: Fela Goldberg on 02-20-2024 Hemoglobin (Bld) [Mass/Vol] 11.6 g/dL Low 12.0-15.0 [facility] High density lipoprotein (HD L) measurementOrdered By: Fela Goldberg on 02-20-2024 Cholesterol in HDL [Mass/Vol] 75 mg/dL >40 [facility] Comment on above: The drugs N-Acetylcy steine and Metamizole may falsely depress this assay. Reference Range HDL <40 mg/dL Low HDL Cholesterol HDL >or= 60 mg/dL High HDL Cholesterol Immature granulocytes/100 WB C Auto (Bld)Ordered By: Fela Goldberg on 02-20-2024 Immature granulocytes/100 WBC (Bld) 0.400 % 0.0-0.9 [facility] Comment on above: IG% - Immature Granu locytes (promyelocytes, myelocytes and metamyelocytes) > 1% indicates that a LEFT SHIFT is Present. Internal Medicine Office Vis iton 02-20-2024 Internal Medicine Office Visit [facility] [place] [address] [place] [address] OFFICE VISIT Date of Service: 02/20/24 MR#: [id number] Acct: [id number] Name: CARINA LOPEZ Rep #: [id number] : 1975 Provider: Dr. 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 Accompanied by: Self Is patient in pain?: No Allergies No Known Allergies Allergy (Verified 02/20/24 08:22) Medications ???Medication ???Instructions ???Recorded ???Confirmed ???Type psyllium husk 3.4 gram/5.4 gram 1 tbsp PO DAILY 11/23/21 02/20/24 History oral powder (Metamucil) multivitamin (One Daily 1 tab PO DAILY 01/20/22 02/20/24 History Multivitamin tablet) atorvastatin 20 mg tablet See Rx Instructions .Route 01/25/24 02/20/24 Rx .COMPLEX #90 tabs Have you fallen in the past year?: No PFSH Medical History Traveler's diarrhea Wears contact lenses Non-smoker Colon cancer screening Preventative health care Hyperlipidemia Surgical History Status post colonoscopy H/O dilation and curettage Hx of tubal ligation delivery delivered Family History Father Hypertension Cancer Skin Mother Cancer Ovarian -BRCA neg Social History household members: spouse and children number of children: 5 Smoking Status: Never smoker alcohol intake: never substance use type: does not use caffeine: Yes what type of physical activity do you participate in: running frequency: 5-6 times per week seatbelt use: always do you feel safe at home: Yes 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 No acute concerns at this time. No significant changes since her last visit. Stays active. Concerned about continued weight gain despite being active. Runs. No tobacco or alcohol abuse. ROS Const Constitutional: No body ache, excessive sweating, fatigue, fever(s), frequent falls, headache(s), snoring, weakness, weight change, sleep problems or change in appetite Eyes Eyes: No blurry vision, change in vision, bulging eyes, floaters, visual disturbances, eye pain or Light sensitivity ENT ENT: No abnormal hearing, ear or mastoid pain, tinnitus, balance problems, nosebleed/epistaxis , nasal congestion, headache(s), neck pain or sore throat Resp Respiratory: No cough, excessive phlegm production, pain on inspiration, shortness of breath, snoring or wheezing Cardio Cardiology: No chest pain at rest, chest pain with exertion, excessive sweating, shortness of breath, dyspnea on exertion, lightheadedness, orthopnea or palpitations Gastro GI: No abdominal pain, change in bowel habits, constipation, cramping, diarrhea, nausea/dyspepsia or vomiting Genitourinary-Femal e: No burning urination, painful urination, urinary incontinence, urinary frequency, blood in urine, suprapubic fullness, side pain, abnormal periods or pelvic pain Musc Musculoskeletal: No abnormal gait, joint pain, back pain, limited range of motion, muscle cramps, neck pain, numbness, stiffness, tingling or Arthritis Skin Skin: No dry skin, redness, excessive hair growth, yellowing of the eye, lesions, itchy eyes, rash or wounds Neuro Neurology: No abnormal gait, abnormal hearing, abnormal speech, behavioral changes, unsteady gait/balance, dizziness, weakness, frequent falls, headache(s), memory loss, numbness, tingling or visual disturbances Psych Psychiatric: No anxiety, No behavioral changes, No change in appetite, No depression, No memory loss and No Thoughts of harming yourself/Others Endo Endocrine: No cold intolerance, excessive sweating, fatigue, flushing, heat intolerance, increased thirst/drinking, increased hunger or weight change Aller/Imm Allergy/Immunologic : No itchy eyes, seasonal allergy symptoms, hives or wheezing Chalo/Lymp Hematologic/Lymphat ic: No easy bleeding, easy bruising or enlarged lymph nodes Exam Const General: cooperative, comfortable and no acute distress Orientation: alert, awake and oriented x3 HENMT Head: normal to inspection, normocephalic and at (more content not included)... Normal [facility] - Chemistry and C hemistry - challengeOrdered By: Fela Goldberg on 02-20-2024 AST [Catalytic activity/Vol] 17 U/L 15-37 [facility] Lipid Profileon 02-20-2024 Cholesterol [Mass/Vol] 170 mg/dL Normal 200 [facility] Comment on above: Result Comment: <200 mg/dL Desirable 200-240 mg/dL Borderline >240 mg/dL High Risk Performed By: #### L 100.0100, L500.4050, L500.4100 #### [facility] [address] [place], [address] Cholesterol in HDL [Mass/Vol] 75 mg/dL Normal [facility] Comment on above: Result Comment: The drugs N-Acetylcysteine and Metamizole may falsely depress this assay. Reference Range HDL <40 mg/dL Low HDL Cholesterol HDL >or= 60 mg/dL High HDL Cholesterol Performed By: #### L 100.0100, L500.4050, L500.4100 #### [facility] [address] [place], [address] Cholesterol in LDL [Mass/Vol] 81 mg/dL Normal 0-130 [facility] Comment on above: Performed By: #### L 100.0100, L500.4050, L500.4100 #### [facility] [address] [place], [address] Cholesterol in VLDL [Mass/Vol] 14 mg/dL Normal 5-40 [facility] Comment on above: Performed By: #### L 100.0100, L500.4050, L500.4100 #### [facility] [address] [place], [address] Triglyceride [Mass/Vol] 69 mg/dL Normal [facility] Comment on above: Result Comment: The drugs N-Acetylcysteine and Metamizole may falsely depress this assay. Serum Triglycerides Reference Interval Normal <150 mg/dL Borderline high 150 - 199 mg/dL High 200 - 499 mg/dL Very High > or = 500 mg/dL Performed By: #### L 100.0100, L500.4050, L500.4100 #### [facility] [address] [place], [address] Low density lipoprotein (LDL ) cholesterol measurementOrdered By: Fela Goldberg on 02-20-2024 Cholesterol in LDL [Mass/Vol] 81 mg/dL 0-130 [facility] MCV (mean corpuscular volume ) determinationOrdered By: Fela Goldberg on 02-20-2024 MCV (RBC) [Entitic vol] 92.0 fL 81-99 [facility] Mean corpuscular hemoglobin (MCH) determinationOrdered By: Fela Goldberg on 02-20-2024 MCH (RBC) [Entitic mass] 29.0 pg 27.0-32.0 [facility] Mean corpuscular hemoglobin concentration (MCHC) determinationOrdered By: Fela Goldberg on 02-20-2024 MCHC (RBC) [Mass/Vol] 31.5 g/dL Low 32-36 [facility] Mean platelet volume determi nationOrdered By: Fela Goldberg on 02-20-2024 Platelet mean volume (Bld) [Entitic vol] 10.0 fL 6.2-12.0 [facility] Monocyte percentageOrdered B y: Fela Goldberg on 02-20-2024 Monocytes/100 WBC (Bld) 7.4 % 0-10 [facility] Neutrophil percentageOrdered By: Fela Goldberg on 02-20-2024 Neutrophils/100 WBC (Bld) 66.8 % 47-70 [facility] Nucleated red blood cell per centageOrdered By: Fela Goldberg on 02-20-2024 Nucleated RBC/100 WBC (Bld) [Ratio] 0 % 0-5 [facility] Platelet countOrdered By: Kaylah Goldberg on 02-20-2024 Platelets (Bld) [#/Vol] 311 10*3/uL 150-450 [facility] Potassium measurementOrdered By: Fela Goldberg on 02-20-2024 Potassium [Moles/Vol] 3.8 mmol/L 3.5-5.1 [facility] RBC Auto (Bld) [#/Vol]Ordere d By: Fela Goldberg on 02-20-2024 RBC (Bld) [#/Vol] 4.00 10*6/uL Low 4.2-5.4 [facility] Serum anion gap measurementO rdered By: Fela Goldberg on 02-20-2024 Anion gap [Moles/Vol] 4 mmol/L Low 5-15 [facility] Serum globulin measurementOr dered By: Fela Goldberg on 02-20-2024 Globulin (S) [Mass/Vol] 3.3 g/dL 2.2-4.2 [facility] Serum or plasma alanine gunn otransferase (ALT) measurementOrdered By: Fela Goldberg on 02-20-2024 ALT [Catalytic activity/Vol] 18 U/L 13-56 [facility] Serum or plasma albumin joan urement (mass/volume)Ordered By: Fela Goldberg on 02-20-2024 Albumin [Mass/Vol] 3.7 g/dL 3.2-5.0 [facility] Serum or plasma alkaline jose sphatase measurementOrdered By: Fela Goldberg on 02-20-2024 ALP [Catalytic activity/Vol] 40 U/L Low 45-117 [facility] Serum or plasma calcium joan urement (mass/volume)Ordered By: Fela Goldberg on 02-20-2024 Calcium [Mass/Vol] 8.7 mg/dL 8.5-10.1 [facility] Serum or plasma cholesterol measurement (mass/volume)Ordered By: Fela Goldberg on 02-20-2024 Cholesterol [Mass/Vol] 170 mg/dL <200 [facility] Comment on above: <200 mg/dL Desirable 200-240 mg/dL Borderline >240 mg/dL High Risk Serum or plasma creatinine m easurement (mass/volume)Ordered By: Fela Goldberg on 02-20-2024 Creatinine [Mass/Vol] 0.77 mg/dL 0.55-1.02 [facility] Comment on above: The validity of the calculated GFR & GFRAA in patients over 70 years has not been determined. Clinical correlation is essential. Serum or plasma urea nitroge n measurement (mass/volume)Ordered By: Fela Goldberg on 02-20-2024 Urea nitrogen [Mass/Vol] 11 mg/dL 7-18 [facility] Sodium levelOrdered By: Abeba pena Ashishbrittanychrystal on 02-20-2024 Sodium [Moles/Vol] 139 mmol/L 136-145 [facility] Total proteinOrdered By: Sebastiná clements Yusuf on 02-20-2024 Protein [Mass/Vol] 7.0 g/dL 6.4-8.2 [facility] Triglycerides measurementOrd ered By: Fela Ashishabiodun on 02-20-2024 Triglyceride [Mass/Vol] 69 mg/dL <199 [facility] Comment on above: The drugs N-Acetylcy steine and Metamizole may falsely depress this assay.Serum Triglycerides Reference Interval Normal <150 mg/dL Borderline high 150 - 199 mg/dL High 200 - 499 mg/dL Very High > or = 500 mg/dL Very low density lipoprotein (VLDL) cholesterol measurementOrdered By: Kaylahmau Goldberg on 02-20-2024 Very low density lipoprotein (VLDL) cholesterol measurement 14 mg/dL 5-40 [facility] White blood cell (WBC) count Ordered By: Fela Ashishbrittanychrystal on 02-20-2024 WBC (Bld) [#/Vol] 4.8 10*3/uL 4.4-11.0 [facility] SCRN MAMM (CAD)W/AKTHY BILATo n 12-30-2023 SCRN MAMM (CAD)W/KATHY BILAT [facility] Imaging Services [address] [place] [address] SCRN MAMM (CAD)W/KATHY BILAT MR#: [id number] Acct: [id number] Name: CARINA LOPEZ Rep #: [id number] : 1975 F 48 From: Bryan chung MD PCP: Dr. Fela Goldberg MD Status: REG [facility] Study: SCRN MAMM (CAD)W/KATHY BILAT Date of Exam: 12/09 04/02 Exam# [id number] Ordering Dr: Selena Haile CLAIMS SPECIALIST-C -[id number] MAMMOGRAPHY - BILATERAL SCREENING REASON FOR EXAM: Female, 48 years old. Routine annual screening examination. PERTINENT HISTORY: Non-contributory. TECHNIQUE: Digital bilateral breast kathy (3D mammographic acquisition) in the CC and MLO projections. 2-D mediolateral oblique (MLO) and craniocaudad (CC) views of both breasts were obtained. CAD: Full Field Digital Mammography with Computer Added Detection was performed. COMPARISON: Comparison is made with prior study dated December 06, 2022 and March 05, 2022. FINDINGS: Breast Composition: The breasts are extremely dense, which lowers the sensitivity of mammography. Since prior study, there has been a decrease in the size and number of nodules in both breasts as compared to prior study. These were demonstrated to be cysts on prior sonogram. No other significant abnormalities are identified. BI/SCRN MAMM (CAD)W/KATHY BILAT IMPRESSION: Interval decrease in size and number of the nodules in both breasts as described. Routine follow-up recommended.. Yearly follow-up mammogram recommended. (A) ASSESSMENT CATEGORY: BIRADS Category 2: Benign. A letter regarding these results will be sent to the patient by the facility within 30 days. Approximately 10% of breast cancers are not detected by mammography. A normal mammogram should not delay biopsy of a clinically suspicious abnormality. [id number] Electronically Signed: Bryan Fowler MD at 14:23 EST , CC: SANJANA Haile; Dr. Fela Goldberg MD Rn Wound: Signed Normal [facility] Title Search Manager Office Visit Reporton 12-14-2023 Title Search Manager Office Visit Report [facility] [address], [address] [place] [address] OFFICE VISIT Date of Service: 12/14/23 MR#: [id number] Acct: [id number] Name: CARINA LOPEZ Rep #: [id number] : 1975 Provider: SANJANA Mcgee Age/Sex: 48/F Location[place] [facility] [place] Status: Signed Intake Vital Signs 12/01/22 10:56 05/17/23 11:06 12/14/23 07:29 Height 5 ft 5 in 5 ft 5 in 5 ft 5 in Weight: 135 lb BMI 22.4 BP 124/78 H 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 Is patient in pain?: No Allergies No Known Allergies Allergy (Verified 12/14/23 10:35) Medications ???Medication ???Instructions ???Recorded ???Confirmed ???Type psyllium husk 3.4 gram/5.4 gram 1 tbsp PO DAILY 11/23/21 12/14/23 History oral powder (Metamucil) multivitamin (One Daily 1 tab PO DAILY 01/20/22 12/14/23 History Multivitamin tablet) atorvastatin 20 mg tablet See Rx Instructions .Route 03/23/23 12/14/23 Rx .COMPLEX #90 tabs Is last menstrual period known: Yes Last Menstrual Period: 12/07/23 Post menopausal: No Patient : No : No Control Method: tubal PFSH Medical History Traveler's diarrhea Wears contact lenses Non-smoker Colon cancer screening Preventative health care Hyperlipidemia Surgical History Status post colonoscopy H/O dilation and curettage Hx of tubal ligation delivery delivered Family History Father Hypertension Cancer Skin Mother Cancer Ovarian -BRCA neg Social History household members: spouse and children number of children: 5 Smoking Status: Never smoker alcohol intake: never substance use type: does not use caffeine: Yes what type of physical activity do you participate in: running frequency: 5-6 times per week seatbelt use: always do you feel safe at home: Yes 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 Date Name GA/Weeks Outcome Route Bth Weight Infant Gen Labor Lgth Anesthesia Del Locatn Provider FOB Unknown 2003 Devin live - full term [facility] Unknown 2005 Caitlin live - full term [facility] Unknown 2007 Gutierrez live - full term [facility] Unknown 2009 Niall live - full term [facility] Unknown 2010 Chencho live - full term [facility] HPI Encounter for routine gynecological examination Details: CARINA LOPEZ is a 48 year old who presents for annual exam. She reports no issues or concerns today. She is due to get her mammogram scheduled. No current control; history of TL. Last PAP: 2019; normal/neg HPV. History of abnormal PAP: no Last mammogram: 2022, ordered for this year History of abnormal mammogram: no- cysts on ultrasound bilaterally, birad 2 (2022) Colon cancer screenin Other preventative health care screenings: Yusuf pcp Female Reproductive History Last Menstrual Period: 12/07/23 Cycle Length: 21-35 Questions: metorrhagia: No, sexually active: Yes, dyspareunia: No and PCB: No ROS Const Constitutional: Denies chills, fatigue, fever(s), headache(s) or weight loss Eyes Eyes: Denies change in vision ENT ENT: Denies dizziness Resp Resp: Denies cough GI GI: Denies abdominal pain, constipation or nausea : Denies difficulty voiding, dysuria, hematuria, nipple discharge, pelvic pain, prolapse symptoms, urinary incontinence, vaginal discharge, vaginal dryness, vaginal odor or vaginal pruritus Skin Skin/Breast: Denies alopecia, rash, breast mass, breast pain, breast skin changes or nipple discharge Neuro Neuro: Denies dizziness Psych Psych: Denies anxiety or depression Endo Endo: Denies cold intolerance, excessive sweating or heat intolerance Exam Const General: cooperative, healthy appearing, comfortable, no acute distress, well groomed and well hydrated Nutritional Appearance: well nourished Orientation: alert, awake and oriented x3 HENMT Head: normal to inspection and normocephalic Ears: hearing grossly normal bilaterally and external ears normal Nose: external nose normal Face and sinus: normal facial exam Eyes General: appearance normal, both eyes and all related structures Neck Neck: normal visual inspection, full ROM and no lymphadenopathy Thyroid: thyroid normal Chest Chest palpation inspection: normal inspection of the chest Breast inspection: norm (more content not included)... Normal [facility] Absolute lymphocyte countOrd ered By: Dr. Goldberg on 02-11-2022 Lymphocytes Auto (Unsp spec) [#/Vol] 1.23 10*3/uL 0.83-4.51 [facility] Basophil percentageOrdered B y: Dr. Goldberg on 02-11-2022 Basophils/100 WBC (Bld) 0.8 % 0-1 [facility] Bilirubin [Mass/Vol] 0.60 mg/dL 0.20-1.00 [facility] Comment on above: For patients on eltr ombopag therapy, use of Dimension [place] TBIL is not recommended. Chloride [Moles/Vol] 105 mmol/L 98-107 [facility] Cholesterol [Mass/Vol] 226 mg/dL <200 [facility] Comment on above: <200 mg/dL Desirable 200-240 mg/dL Borderline >240 mg/dL High Risk Eosinophils/100 WBC (Bld) 1.6 % 0-5 [facility] Glucose [Mass/Vol] 96 mg/dL 74-106 [facility] Neutrophils (Bld) [#/Vol] 3.3 10*3/uL 2.0-7.7 [facility] Neutrophils/100 WBC (Bld) 64.6 % 47-70 [facility] Potassium [Moles/Vol] 3.7 mmol/L 3.5-5.1 [facility] Protein [Mass/Vol] 7.1 g/dL 6.4-8.2 [facility] Sodium [Moles/Vol] 138 mmol/L 136-145 [facility] Triglyceride [Mass/Vol] 100 mg/dL <199 [facility] Comment on above: The drugs N-Acetylcy steine and Metamizole may falsely depress this assay.Serum Triglycerides Reference Interval Normal <150 mg/dL Borderline high 150 - 199 mg/dL High 200 - 499 mg/dL Very High > or = 500 mg/dL WBC (Bld) [#/Vol] 5.1 10*3/uL 4.4-11.0 [facility] Blood erythrocytes count (nu mber/volume)Ordered By: Dr. Goldberg on 02-11-2022 RBC (Bld) [#/Vol] 4.30 10*6/uL 4.2-5.4 [facility] Blood hemoglobin measurement (mass/volume)Ordered By: Dr. Goldberg on 02-11-2022 Hemoglobin (Bld) [Mass/Vol] 13.0 g/dL 12.0-15.0 [facility] Blood lymphocytes/100 leukoc ytesOrdered By: Dr. Goldberg on 02-11-2022 Lymphocytes/100 WBC (Bld) 24.3 % 19-41 [facility] Blood monocytes/100 leukocyt esOrdered By: Dr. Goldberg on 02-11-2022 Monocytes/100 WBC (Bld) 8.3 % 0-10 [facility] Blood platelet mean volumeOr dered By: Dr. Goldberg on 02-11-2022 Platelet mean volume (Bld) [Entitic vol] 9.7 fL 6.2-12.0 [facility] Determination of erythrocyte mean corpuscular volume (MCV)Ordered By: Dr. Goldberg on 02-11-2022 MCV (RBC) [Entitic vol] 95.3 fL 81-99 [facility] Hematocrit Auto (Bld) [Volum e fraction]Ordered By: Dr. Goldberg on 02-11-2022 Hematocrit (Bld) [Volume fraction] 41.0 % 37-47 [facility] Laboratory - Chemistry and C hemistry - challengeOrdered By: Dr. Goldberg on 02-11-2022 ALP [Catalytic activity/Vol] 42 U/L 45-117 [facility] ALT [Catalytic activity/Vol] 27 U/L 13-56 [facility] CO2 [Moles/Vol] 27.0 mmol/L 21.0-32.0 [facility] Globulin (S) [Mass/Vol] 3.0 g/dL 2.2-4.2 [facility] Urea nitrogen/Creatinine [Mass ratio] 15.3 mg/mg 10-20 [facility] Laboratory - Hematology and Cell countsOrdered By: Dr. Goldberg on 02-11-2022 Erythrocyte distribution width (RBC) [Entitic vol] 42.9 fL 35.1-43.9 [facility] Erythrocyte distribution width (RBC) [Ratio] 12.2 % 11.6-14.6 [facility] Immature granulocytes/100 WBC (Bld) 0.400 % 0.0-0.9 [facility] Comment on above: IG% - Immature Granu locytes (promyelocytes, myelocytes and metamyelocytes) > 1% indicates that a LEFT SHIFT is Present. MCH (RBC) [Entitic mass] 30.2 pg 27.0-32.0 [facility] Nucleated RBC/100 WBC (Bld) [Ratio] 0 % 0-5 [facility] MCHC Auto (RBC) [Mass/Vol]Or dered By: Dr. Goldberg on 02-11-2022 MCHC (RBC) [Mass/Vol] 31.7 g/dL 32-36 [facility] No Panel InformationOrdered By: Dr. Goldberg on 02-11-2022 Estimated GFR (MDRD) Amer 112 mL/min >60 [facility] Comment on above: GFR Calc Estimated GFR (MDRD) Non-Af Amer 93 mL/min >60 [facility] Comment on above: Non- GFR Calc Platelets bldOrdered By: Dr. Goldberg on 02-11-2022 Platelets (Bld) [#/Vol] 321 10*3/uL 150-450 [facility] Serum or plasma albumin joan urement (mass/volume)Ordered By: Dr. Goldberg on 02-11-2022 Albumin [Mass/Vol] 4.1 g/dL 3.2-5.0 [facility] Serum or plasma albumin/glob ulin mass ratioOrdered By: Dr. Goldberg on 02-11-2022 Albumin/Globulin [Mass ratio] 1.4 {ratio} 0.9-2.4 [facility] Serum or plasma calcium joan urement (mass/volume)Ordered By: Dr. Goldberg on 02-11-2022 Calcium [Mass/Vol] 8.7 mg/dL 8.5-10.1 [facility] Serum or plasma cholesterol in HDL measurement (mass/volume)Ordered By: Dr. Goldberg on 02-11-2022 Cholesterol in HDL [Mass/Vol] 76 mg/dL >40 [facility] Comment on above: The drugs N-Acetylcy steine and Metamizole may falsely depress this assay. Reference Range HDL <40 mg/dL Low HDL Cholesterol HDL >or= 60 mg/dL High HDL Cholesterol Serum or plasma cholesterol in VLDL measurement (mass/volume)Ordered By: Dr. Goldberg on 02-11-2022 Cholesterol in VLDL [Mass/Vol] 20 mg/dL 5-40 [facility] Serum or plasma creatinine m easurement (mass/volume)Ordered By: Dr. Goldberg on 02-11-2022 Creatinine [Mass/Vol] 0.72 mg/dL 0.55-1.02 [facility] Comment on above: The validity of the calculated GFR & GFRAA in patients over 70 years has not been determined. Clinical correlation is essential. Serum or plasma low density lipoprotein (LDL) cholesterol measurement (mass/volume)Ordered By: Dr. Goldberg on 02-11-2022 Cholesterol in LDL [Mass/Vol] 130 mg/dL 0-130 [facility] Serum or plasma urea nitroge n measurement (mass/volume)Ordered By: Dr. Goldberg on 02-11-2022 Urea nitrogen [Mass/Vol] 11 mg/dL 7-18 [facility] Thin prep Papanicolaou smear with manual screeningOrdered By: Dr. Goldberg on 02-11-2022 Thin prep Papanicolaou smear with manual screening 15 U/L 15-37 [facility] Thin prep Papanicolaou smear with manual screening 6 5-15 [facility] Vital Signs Date Time Vital Sign Value Performing Clinician Faci lity 02-20-2024 08:26-0500 Body height 165.[address] Fela Goldberg MD Work Phone: [facility] 02-20-2024 08:26-0500 Body mass index (BMI) [Ratio] 23.1 kg/m2 Dr. Fela Goldberg MD Work Phone: [facility] 02-20-2024 08:26-0500 Body temperature 96.2 [degF] Dr. Fela Goldberg MD Work Phone: [facility] 02-20-2024 08:26-0500 Body weight 63.[address] Fela Goldberg MD Work Phone: [facility] 02-20-2024 08:26-0500 Diastolic blood pressure 74 mm[Hg] Dr. Fela Goldberg MD Work Phone: [facility] 02-20-2024 08:26-0500 Heart rate 66 /min Dr. Fela Goldberg MD Work Phone: [facility] 02-20-2024 08:26-0500 Respiratory rate 12 /min Dr. Fela Goldberg MD Work Phone: [facility] 02-20-2024 08:26-0500 SaO2% (BldA) [Mass fraction] 99 % Dr. Fela Goldberg MD Work Phone: [facility] 02-20-2024 08:26-0500 Systolic blood pressure 118 mm[Hg] Dr. Fela Goldberg MD Work Phone: [facility] 05-17-2023 11:06-0400 Body height 165.[address] Fela Goldberg Work Phone: [facility] 05-17-2023 11:06-0400 Body mass index (BMI) [Ratio] 21.6 kg/m2 Dr. Fela Goldberg Work Phone: [facility] 05-17-2023 11:06-0400 Body temperature 98.6 [degF] Dr. Fela Goldberg Work Phone: [facility] 05-17-2023 11:06-0400 Body weight 58.[address] Fela Goldberg Work Phone: [facility] 05-17-2023 11:06-0400 Diastolic blood pressure 66 mm[Hg] Dr. Fela Goldberg Work Phone: [facility] 05-17-2023 11:06-0400 Heart rate 74 /min Dr. Fela Goldberg Work Phone: [facility] 05-17-2023 11:06-0400 Respiratory rate 14 /min Dr. Fela Goldberg Work Phone: [facility] 05-17-2023 11:06-0400 SaO2% (BldA) [Mass fraction] 96 % Dr. Fela Goldberg Work Phone: [facility] 05-17-2023 11:06-0400 Systolic blood pressure 104 mm[Hg] Dr. Fela Goldberg Work Phone: [facility] 12-01-2022 10:56-0400 Body height 165.[address] Fela Goldberg Work Phone: [facility] 12-01-2022 10:55-0400 Body mass index (BMI) [Ratio] 21 kg/m2 Dr. Fela Goldberg Work Phone: [facility] 12-01-2022 10:55-0400 Body weight 57.[address] Fela Goldberg Work Phone: [facility] 12-01-2022 10:55-0400 Diastolic blood pressure 74 mm[Hg] Dr. Fela Goldberg Work Phone: [facility] 12-01-2022 10:55-0400 Systolic blood pressure 117 mm[Hg] Dr. Fela Goldberg Work Phone: [facility] 09-13-2022 09:50-0400 Body mass index (BMI) [Ratio] 21.4 kg/m2 Dr. Fela Goldberg Work Phone: [facility] 09-13-2022 09:50-0400 Body temperature 98.6 [degF] Dr. Fela Goldberg Work Phone: [facility] 09-13-2022 09:50-0400 Body weight 58.[address] Fela Goldberg Work Phone: [facility] 09-13-2022 09:50-0400 Diastolic blood pressure 72 mm[Hg] Dr. Fela Goldberg Work Phone: [facility] 09-13-2022 09:50-0400 Heart rate 75 /min Dr. Fela Goldberg Work Phone: [facility] 09-13-2022 09:50-0400 Respiratory rate 14 /min Dr. Fela Goldberg Work Phone: [facility] 09-13-2022 09:50-0400 SaO2% (BldA) [Mass fraction] 98 % Dr. Fela Goldberg Work Phone: [facility] 09-13-2022 09:50-0400 Systolic blood pressure 115 mm[Hg] Dr. Fela Goldberg Work Phone: [facility] 05-26-2022 18:11-0400 Body temperature 98.6 [degF] Sima Athy PA-C Work Phone: [facility] 05-26-2022 18:11-0400 Body weight 61.24 kg Sima Athy PA-C Work Phone: [facility] 05-26-2022 18:11-0400 Diastolic blood pressure 70 mm[Hg] Sima Athy PA-C Work Phone: [facility] 05-26-2022 18:11-0400 Heart rate 86 /min Sima Athy PA-C Work Phone: [facility] 05-26-2022 18:11-0400 Respiratory rate 18 /min Sima Athy PA-C Work Phone: [facility] 05-26-2022 18:11-0400 SaO2% (BldA) [Mass fraction] 99 % Sima BUTLER-C Work Phone: [facility] 05-26-2022 18:11-0400 Systolic blood pressure 110 mm[Hg] Sima Carlos PA-C Work Phone: [facility] 01-20-2022 09:35-0500 Body temperature 97.7 [degF] Dr. Fela Goldberg Work Phone: [facility] 01-20-2022 09:35-0500 Body weight 58.[address] Fela Goldberg Work Phone: [facility] 01-20-2022 09:35-0500 Diastolic blood pressure 70 mm[Hg] Dr. Fela Goldberg Work Phone: [facility] 01-20-2022 09:35-0500 Heart rate 61 /min Dr. Fela Goldberg Work Phone: [facility] 01-20-2022 09:35-0500 Respiratory rate 18 /min Dr. Fela Goldberg Work Phone: [facility] 01-20-2022 09:35-0500 SaO2% (BldA) [Mass fraction] 99 % Dr. Fela Goldberg Work Phone: [facility] 01-20-2022 09:35-0500 Systolic blood pressure 114 mm[Hg] Dr. Fela Goldberg Work Phone: [facility] 11-23-2021 13:40-0400 Body height 160.[address] Fela Goldberg Work Phone: [facility] 11-23-2021 13:40-0400 Body mass index (BMI) [Ratio] 22.6 kg/m2 Dr. Fela Goldberg Work Phone: [facility] 11-23-2021 13:40-0400 Body weight 58.[address] Fela Goldberg Work Phone: [facility] 11-23-2021 13:40-0400 Diastolic blood pressure 76 mm[Hg] Dr. Fela Goldberg Work Phone: [facility] 11-23-2021 13:40-0400 Systolic blood pressure 119 mm[Hg] Dr. Fela Goldberg Work Phone: [facility] 11-16-2021 12:59-0400 Body height 160.[address] Fela Goldberg Work Phone: [facility] Work Phone: 11-16-2021 12:59-0400 Body mass index (BMI) [Ratio] 22.4 kg/m2 Dr. Fela Goldberg Work Phone: [facility] 11-16-2021 12:59-0400 Body temperature 98.8 [degF] Dr. Fela Goldberg Work Phone: [facility] 11-16-2021 12:59-0400 Body weight 57.[address] Fela Goldberg Work Phone: [facility] 11-16-2021 12:59-0400 Diastolic blood pressure 80 mm[Hg] Dr. Fela Goldberg Work Phone: [facility] 11-16-2021 12:59-0400 Heart rate 97 /min Dr. Fela Goldberg Work Phone: [facility] 11-16-2021 12:59-0400 Respiratory rate 14 /min Dr. Fela Goldberg Work Phone: [facility] 11-16-2021 12:59-0400 SaO2% (BldA) [Mass fraction] 99 % Dr. Fela Goldberg Work Phone: [facility] 11-16-2021 12:59-0400 Systolic blood pressure 120 mm[Hg] Dr. Fela Goldberg Work Phone: [facility] Encounters Encounter Date Encounter Type Care Provider Facility Start: 08-23-2024 ambulatory Fela Goldberg [facility] ty:[facility] Start: 06-26-2024 End: 06-26-[address] Fela Goldberg MD Work Phone: [facility] Work Phone: Start: 06-26-2024 End: 06-26-[address] Fela Goldberg MD -Laboratory Specimen Work Phone: Start: 06-26-2024 End: 06-26-2024 ambulatory [facility] Facility:[facility] Start: 06-11-2024 End: 06-11-[address] Fela Goldberg MD Work Phone: [facility] Work Phone: Start: 06-11-2024 End: 06-11-[address] Fela Goldberg MD -Laboratory Work Phone: Start: 06-11-2024 End: 06-11-2024 ambulatory [facility] Facility:[facility] Start: 06-04-2024 End: 06-04-[address] Fela Goldberg MD -Laboratory Work Phone: Start: 06-04-2024 End: 06-04-2024 ambulatory [facility] Facility:[facility] Start: 03-10-2024 Encounter for genera l adult medical examination without abnormal findings [facility] Start: 02-20-2024 End: 02-20-[address] Fela Goldberg MD -[facility] Work Phone: Start: 02-20-2024 End: 02-20-[address] Fela Goldberg MD [facility] Start: 02-20-2024 End: 02-20-2024 ambulatory [facility] Start: 02-20-2024 End: 02-20-2024 ambulatory Fela Goldberg Facility:[facility] Start: 12-30-2023 End: 12-30-2023 ambulatory [facility] Facility:[facility] Start: 12-14-2023 End: 12-14-2023 ambulatory [facility] Start: 05-17-2023 End: 05-17-[address] Fela Goldberg Work Phone: [facility] Work Phone: Start: 05-17-2023 End: 05-17-[address] Fela Goldberg Work Phone: [facility] Work Phone: Start: 12-06-2022 End: 12-06-[address] Fela Goldberg Work Phone: [facility] Work Phone: Start: 12-06-2022 End: 12-06-[address] Fela Goldberg Work Phone: [facility] Work Phone: Start: 12-01-2022 End: 12-01-[address] Fela Goldberg Work Phone: [facility] Work Phone: Start: 09-13-2022 End: 09-13-[address] Fela Goldberg Work Phone: [facility] Work Phone: Start: 05-26-2022 End: 05-26-2022 Patient encounter procedure Sima Gonzalez PA-C Work Phone: [facility] Comment on above: Olecranon bursitis o f left elbow (Primary Dx); Skin infection Start: 03-08-2022 End: 03-08-[address] Fela Goldberg Work Phone: [facility] Work Phone: Start: 03-08-2022 End: 03-08-[address] Fela Goldberg Work Phone: [facility] Start: 03-05-2022 End: 03-05-[address] Fela Goldberg Work Phone: [facility] Work Phone: Start: 03-05-2022 End: 03-05-[address] Fela Goldberg Work Phone: [facility] Start: 02-11-2022 End: 02-11-[address] Fela Goldberg Work Phone: [facility] Work Phone: Start: 02-11-2022 End: 02-11-[address] Fela Goldberg Work Phone: [facility] Start: 01-20-2022 End: 01-20-2022 Encounter for general adult medical examination without abnormal findings Dr. Fela Goldberg Work Phone: [facility] Start: 01-20-2022 End: 01-20-[address] Fela Goldberg Work Phone: [facility] Start: 11-23-2021 End: 11-23-[address] Fela Goldberg Work Phone: [facility] Start: 11-16-2021 End: 11-16-[address] Fela Goldberg Work Phone: [facility] Work Phone: Start: 11-16-2021 End: 11-16-[address] Fela Goldberg Work Phone: [facility] Start: 01-21-[address] Fela Goldberg Work Phone: [facility] Procedures Date Procedure Procedure Detail Performing Clinician Start: 06-26-2024 Measurement of occul t blood in stool specimen using immunoassay Dr. Fela Goldberg MD Work Phone: Start: 06-11-2024 Total iron binding c apacity measurement Dr. Fela Goldberg MD Work Phone: Start: 02-20-2024 Measurement of renal function Dr. Fela Goldberg MD Work Phone: Comment on above: GFR Calc Start: 05-17-2023 X-ray of both feet Dr. Fela Goldberg Work Phone: Start: 12-06-2022 Bilateral mammography Hillary Goldberg Work Phone: Start: 12-06-2022 End: 12-06-[address] Fela Goldberg Work Phone: Start: 03-08-[address] Fela Goldberg Work Phone: Start: 03-05-2022 Screening mammography Hillary Goldberg Work Phone: Start: 11-16-2021 Plain x-ray of hand Dr. Fela Goldberg Work Phone: Plan of Treatment Date Care Activity Detail Author Start: 05-17-2023 Patient referral [facility] Work Phone: Start: 03-14-2022 Urine microalbumin profile DTAP,TDAP,TD (2 - Td or Tdap) [facility] Start: 02-07-2022 DEPRESSION ASSESSMENT DEPRESSION ASSESSMENT [facility] Start: 03-21-2021 COVID-19 VACCINE (3 - Booster for Moderna series) COVID-19 VACCINE (3 - Booster for Moderna series) [facility] Start: 10-22-2020 COLOGUARD (FIT-DNA) COLOGUARD (FIT-DNA) [facility] Start: 10-22-2020 Colonoscopy COLONOSCOPY [facility] Start: 10-22-2020 COLORECTAL CANCER SCREENING COLORECTAL CANCER SCREENING [facility] Start: 10-22-[address] COLONOGRAPHY [facility] Start: 10-22-2020 DIABETES SCREEN DIABETES SCREEN [facility] Start: 10-22-2020 FECAL OCCULT BLOOD FECAL OCCULT BLOOD [facility] Start: 10-22-2020 LIPID SCREEN LIPID SCREEN [facility] Start: 10-22-2020 SIGMOIDOSCOPY SIGMOIDOSCOPY [facility] Start: 06-04-2020 HPV TESTING HPV TESTING [facility] Start: 06-04-2020 PAP TESTING PAP TESTING [facility] Start: 2015 Mammography MAMMOGRAM [facility] Start: 10-22-1993 HEPATITIS C SCREENING HEPATITIS C SCREENING [facility] Start: 1975 HEPATITIS B (1 of 3 - 3-dose series) HEPATITIS B (1 of 3 - 3-dose series) [facility] MG Breast - bilatera l Screening [facility] Patient referral [facility] Work Phone: Immunizations Immunization Date Immunization Notes Care Provider Cristina coleman 01-20-2022 influenza, injectabl e, quadrivalent, preservative free Dr. Fela Goldberg Work Phone: [facility] 01-20-2022 influenza, seasonal, injectable Dr. Fela Goldberg Work Phone: [facility] 05-24-2020 tetanus toxoid, redu mariposa diphtheria toxoid, and acellular pertussis vaccine, adsorbed Dr. Fela Goldberg Work Phone: [facility] 12-28-2019 influenza, injectable,quadrivalent , preservative free, pediatric Dr. Fela Goldberg Work Phone: [facility] 03-14-2012 tetanus toxoid, redu mariposa diphtheria toxoid, and acellular pertussis vaccine, adsorbed Sima Gonzalez PA-C Work Phone: [facility] Work Phone: Payers Date Payer Category Payer Self-pay [id number] 2022 Unknown [id number] 2022 Private Health Insurance [employer] [id number] 2022-Present [phone] [address] [place] [address] PPO [id number] 2016 Unknown [id number] Unknown [id number] 62 Unknown [id number] 62 Unknown [id number] 62 Unknown [id number] 62 Unknown [id number] 62 Unknown [id number] 62 Unknown [id number] 62 Unknown [id number] 62 Social History Date Type Detail Facility Start: 11-16-2021 End: 05-17-2023 Tobacco smoking status NHIS Unknown if ever smoked [facility] Start: 1975 Sex Assigned At Female [facility] Start: 05-17-2023 Tobacco smoking stat us MSIS Never smoked tobacco [facility] Start: 05-26-2022 Alcohol intake Current non-dr die cleaner of alcohol (finding) [facility] Start: 1975 Sex Assigned At Not on file [facility] Clinical Notes 12-10-2010 to 02-20-2024 Note Date & Type Note Facility 02-20-2024 Evaluation note Diagnosis Onset Date Resolution Preventative health care acute February 19 8:21am [facility] Work Phone: [phone] 978-722604-19-2023 History of Present illness Narrative* Sima Gonzalez PA-C - 05/26/2022 6:21 PM EDT Images from the original note were not included. This note was created using [employer]. Subjective Carina Lopez is a 46 year old female. HPI Patient presents with swelling at her left elbow. She noted a red area about a week ago and has slowly gotten more red and swollen. She was doing a bunch of mulching prior to the elbow starting to bother her. Denies any injury that she knows of. No fever or chills. No drainage from the area. She thought maybe she had gotten bit by a bug. It does not itch. Mild pain. Review of Systems Musculoskeletal: Left elbow swelling/redness All other systems reviewed and are negative. PAST MEDICAL HISTORY Diagnosis Date Unspecified ectopic without intrauterine Ectopic Current Outpatient Medications Medication Sig Dispense Refill atorvastatin (LIPITOR) 20 mg tablet doxycycline (VIBRA-TABS) 100 mg tablet Take 1 tablet by mouth twice daily for 7 days. 14 tablet 0 benzonatate (TESSALON PERLES) 100 mg capsule Take 1 capsule by mouth three times daily as needed for Cough. 20 capsule 0 CALCIUM CARBONATE/VITAMIN D3 (CALCIUM + D ORAL) Take by mouth. (Patient not taking: Reported on 05/26/2022) No current facility-administered medications for this visit. PAST SURGICAL HISTORY Procedure Laterality Date DELIVERY ONLY , low transverse DELIVERY ONLY 12/15/10 , low transverse TUBAL LIGATION, 12/15/2010 TX ECTOPIC W/O SALPING&/OOPHORECTOMY 10/2004 patient had D&C FAMILY HISTORY Problem Relation Age of Onset Heart Paternal Grandfather Hypertension Father Prostate Cancer Father 55 [place] 2010 Ovarian cancer Mother 60 BRCA negative, aggressive, estrogen positive Social History Tobacco Use Smoking status: Never Smokeless tobacco: Never Substance Use Topics Alcohol use: No Drug use: No Objective BP 110/70 Pulse 86 Temp 37 C (98.6 F) Resp 18 Wt 61.2 kg (135 lb) LMP 05/21/2015 (Approximate) SpO2 99% BMI 23.62 kg/m Physical Exam Vitals reviewed. Constitutional: Appearance: Normal appearance. HENT: Head: Normocephalic and atraumatic. Musculoskeletal: Arms: Comments: Patient has redness and swelling just distal to the olecranon with some olecranon bursal swelling. Some pain with extension and tenderness on palpation. Full range of motion of the elbow without difficulty. No sign of septic joint. Radial pulse 2+. No lymphangitic streaking. Skin: General: Skin is warm and dry. Neurological: Mental Status: She is alert. Assessment and Plan ASSESSMENT/PLAN: 1. Olecranon bursitis of left elbow - ICD9: 726.33, ICD10: M70.22 (primary diagnosis) Discussed anti-inflammatories, ice, Jamaal wrap applied here. Follow-up with PCP if not improving. 2. Skin infection - ICD9: 686.9, ICD10: L08.9 -We will cover with doxycycline. Patient has area outlined with a pen, discussed if she has significant increase in size of the redness, lymphangitic streaking or other fever or worsening symptoms beseen in the ER. Sima Gonzalez PA-C [facility] History of Past illness Narrative* Problem Noted Date Resolved Date Acute bronchitis 12/10/2010 12/29/2010 Elderly multigravida with an tepartum condition or complication 06/02/2010 12/29/2010 Previous delivery, antepartum condition or complication 06/02/2010 12/29/2010 Supervision of other normal 06/02/2010 12/29/2010 Threatened , antepartum 06/02/2010 12/29/2010 Supervision of other normal 12/10/2008 05/08/2009 Asymptomatic bacteriuria in , unspecified as to episode of care 02/21/2007 05/08/2009 documented as of this encounter (statuses as of 05/27/2022) [facility] Diagnosis Onset Date Resolution Status Contusion of right hand, initial encounter acute [facility] Work Phone: Evaluation note* Diagnosis Onset Date Resolution Status Contusion of right hand, initial encounter acute Encounter for routine gynecological examination noneactive Preventative health care acu te [facility] Work Phone: Evaluation note* Diagnosis Onset Date Resolution Status Encounter for routine gynecological examination noneactive Preventative health care acu te [facility] Work Phone: Evaluation note* Diagnosis Olecranon bursitis of left elbow- Primary Olecranon bursitis Skin infection Unspecified local infection of skin and subcutaneous tissue documented in this encounter [facility] Diagnosis Onset Date Resolution Status Traveler's diarrhea acute Breast mass in female acute Encounter for routine gynecological examination noneactive [facility] Work Phone: Evaluation note* Diagnosis Onset Date Resolution Status Bunion, left acute [facility] Work Phone: Evaluation noteNo assessment information available [facility] Work Phone: Reason for referral (narrative)No reason for [facility] Work [facility]: Chief Complaint and Reason for Visit Chief Complaint RIGHT HAND INJURY Reason for Visit Contusion of right h and, initial encounter Chief Complaint RIGHT HAND INJURY 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 left foot pain Reason for Visit Bunion, left Chief Complaint Admit Date YEARLY February 20, 2024 8 :21am E ORDER June 11, 2024 12:33p m Reason for Visit Admit Date Preventative health care February 19, 2 025 8:21am Chief Complaint Admit Date E ORDER June 11, 2024 12:33p m Family History No Family History Records Found Relationship Condition Age at Onset Recorded Date/T talha father Hypertension Unknown Malignant neoplasm Unknown mother Malignant neoplasm Unknown Advance Directives No Advanced Directives Records Found Advance Directive Response Recorded Date/ Time Living Will No March 16 9:33am Power of Paper Machine Supervisor No March 16, 2021 9:33am Advance Directive Response Recorded Date/ Time Living Will No March 16 8:33am Power of Paper Machine Supervisor No March 16, 2021 8:33am Advance Directive Response Recorded Date/ Time Living Will No September 13, 2022 9:50am Power of Paper Machine Supervisor No September 13 9:50am Advance Directive Response Recorded Date/ Time Living Will No September 13, 2022 9:50am Do you have a Healthcare Power of Paper Machine Supervisor? No September 13, 2022 9:50am Summary Purpose Additional Source Comments Goals (unrecognized section and content) Goals may be documented in a n alternate sectionGoals may be documented in an alternate sectionGoals may be documented in an alternate sectionGoals may be documented in an alternate sectionGoals may be documented in an alternate sectionGoals may be documented in an alternate sectionGoals may be documented in an alternate sectionGoals may be documented in an alternate section Care Teams (unrecognized sec tion and content) Team Status: Active Member Role Status Dates Dr. Fela Goldberg MD Family Provider Active Dr. Fela Goldberg MD Primary Care Provider Active Team Status: Inactive Member Role Status Dates Dr. Fela Goldberg MD Primary Care Alexus christian, Attending Provider, Referring Provider Active Team Status: Inactive Member Role Status Dates Dr. Fela Goldberg MD Primary Care Provider, Refer ring Provider Active Aneta Guillermo CNM Attending Provider Active Team Status: Inactive Member Role Status Dates Dr. Fela Goldberg MD Primary Care Provider, Refer ring Provider Active CARRIE Gonzalez Attending Provider Active Team Status: Inactive Member Role Status Dates Dr. Fela Goldberg MD Primary Care Provider Active CARRIE Gonzalez Attending Provider, Referring Provi arpan Active Team Status: Inactive Member Role Status Dates Dr. Fela Goldberg MD Primary Care Provider Active Aneta Guillermo CNM Attending Provider, Referring Pr ovider Active Team Status: Active Member Role Status Dates Dr. Fela Goldberg MD Primary Care Provider Active Aneta Guillermo CNM Attending Provider Active Team Status: Inactive Member Role Status Dates Dr. Fela Goldberg MD Primary Care Provider Active Aneta Guillermo CNM Attending Provider Active Bowling [employer] Finisher Relationship Specialty Start Date End Date Carina Fenton DO PCP - General Family Medicine 12/11/14 Team Status: Inactive Member Role Status Dates Dr. Fela Goldberg MD Primary Care Provider, Refer ring Provider Active Casper Camacho PA, PA Attending Provider Active Team Status: Inactive Member Role Status Dates Dr. Fela Goldberg MD Primary Care Provider, Refer ring Provider Active SANJANA Sorensen Attending Provider Active Team Status: Inactive Member Role Status Dates Dr. Fela Goldberg MD Primary Care Provider Active SANJANA Sorensen Attending Provider, Referring Pro vider Active Team Status: Inactive Member Role Status Dates Dr. Fela Goldberg MD Primary Care Provider Active Start: February 20, 2024 End: February 20, 2024 Dr. Fela Goldberg MD Attending Provider Active Start: February 20, 2024 End: February 20, 2024 Dr. Fela Goldberg MD Referring Provider Active Start: February 20, 2024 End: February 20, 2024 Team Status: Inactive Member Role Status Dates Dr. Fela Goldberg MD Primary Care Provider Active Start: June 04, 2024 End: June 04, 2024 Dr. Fela Goldberg MD Attending Provider Active Start: June 04, 2024 End: June 04, 2024 Dr. Fela Goldberg MD Referring Provider Active Start: June 04, 2024 End: June 04, 2024 Team Status: Inactive Member Role Status Dates Dr. Fela Goldberg MD Primary Care Provider Active Start: June 11, 2024 End: June 11, 2024 Dr. Fela Goldberg MD Attending Provider Active Start: June 11, 2024 End: June 11, 2024 Dr. Fela Goldberg MD Referring Provider Active Start: June 11, 2024 End: June 11, 2024 Team Status: Inactive Member Role Status Dates Dr. Fela Goldberg MD Primary Care Provider Active Start: June 26, 2024 End: June 26, 2024 Dr. Fela Goldberg MD Attending Provider Active Start: June 26, 2024 End: June 26, 2024 Dr. Fela Goldberg MD Referring Provider Active Start: June 26, 2024 End: June 26, 2024 Source Comments (unrecognize d section and content) In the event this informatio n is protected by the Federal Confidentiality of Alcohol and Drug Abuse Patient Records regulations: The Federal rules restrict any use of the information to criminally investigate or prosecute any alcohol or drug abuse patient.[facility] Reason for Visit (unrecogniz ed section and content) Reason Comments Derm Problem Insect bite L elbow, now infected x1 week INFORMATION SOURCE (unrecogn ized section and content) DATE CREATED AUTHOR 08/22/2024 [facility] FOR RECORDS PERTAINING TO PATIENTS WHO ARE OR HAVE BEEN ENROLLED IN A CHEMICAL DEPENDENCY/SUBSTANCEABUSE PROGRAM, SOME INFORMATION MAY BE OMITTED. This clinical summary was aggregated from multiple sources. Caution should be exercised in using it in the provision of clinical care. This summary normalizes information from multiple sources, and as a consequence, information in this document may materially change the coding, format and clinical context of patient data. In addition, data may be omitted in some cases. CLINICAL DECISIONS SHOULD BE BASED ON THE PRIMARY CLINICAL RECORDS. [employer] provides no warranty or guarantee of the accuracy or completeness of information in this document.
--- NOTE | 2024-08-23 12:18 | CA.SCORE ---
Calcium Scoring Date of Study:: 08/23/24 Indications Indications: Hyperlipidemia family history Coronary Calcium Scoring: High-resolution Computed Tomographic imaging of the chest was performed on [08/23/2024], with particular attention paid to the coronary arteries. Images from the examination were analyzed for the presence and extent of coronary artery calcification , using coronary calcium quantification software. The patient tolerated the procedure well and there were no complications. The results of the coronary calcification analysis are provided below. Findings Coronary Artery Left Main (LM): 0 Left Anterior Descending (LAD): 0 Left Circumflex (LCX): 15.8 Right Coronary Artery (RCA): 0 Total Agatston Score: 15.8 Percentile Rankinth and 90th percentile Calcium Scoring Interpretation: Different methods to categorize the overall amount of coronary plaque. Overall amount CAC SIS Visual of coronary plaque P1 Mild -100 <2 1-2 vessels with mild amount of plaque P2 Moderate 101-300 3-4 1-2 vessels with moderate amount, 3 vessels with mild amount of plaque P3 Severe 301-999 5-7 3 vessels with moderate amount, 1 vessel with severe amount of plaque P4 Extensive >1000 >8 2-3 vessels with severe amount of plaque Calcium Score: Mild: 1-2 vessels w/mild amount of plaque Conclusion: Mild focal atherosclerotic plaquing noted
== END | disposition home or self-care (01) ==
PROVIDERS: PCP Internal Medicine; Referring Provider Internal Medicine; Visit Provider Internal Medicine
DX: E78.5 Hyperlipidemia, unspecified (principal)
CPT/HCPCS: 75571; 76380

== ENCOUNTER → 2024-10-06 | Outpatient (CLI) | payer OTHER, SELFPAY ==
--- OUTSIDE RECORDS SUMMARY | 2024-10-06 09:10 | XMS RPT_ITS | CCD ---
Author Organization [facility] CliniSynv Care Team Providers Care Deputy Sheriff Generalist/Bailiff Name Role Phone Dr. Fela Goldberg Primary Care Provider [phone]) Dr. Fela Goldberg Referring Provider [phone] CARRIE Mancuso Attending Provider Dr. Fela Goldberg Primary Care Provider 1(33 0) Dr. Fela Goldberg Referring Provider [phone] CARRIE Mancuso Attending Provider DA Guillermo Attending Provider [phone] Dr. Fela Goldberg Attending Provider [phone] Dr. Fela Goldberg Primary Care Provider 1(33 0) Dr. Fela Goldberg Referring Provider [phone] Carina Fenton DO Primary Care Provider [phone] Dr. Fela Goldberg Primary Care Provider 1(33 0) Dr. Fela Goldberg Referring Provider [phone] CARRIE Resendiz Attending Provider DA Guillermo Attending Provider Dr. Fela Goldberg Primary Care Provider 1(33 0) Dr. Fela Goldberg Referring Provider [phone] SANJANA Durán Attending Provider [phone]) Dr. Fela Goldberg MD Primary Care Provider Dr. Fela Goldberg MD Attending Provider 1(33 0) Yusuf LINDA, Dr. Chahal Referring Provider 1(33 0) Yusuf LINDA, Dr. Chahal Primary Care Provider Yusuf LINDA, Dr. Chahal Attending Provider 1(33 0) Yusuf LINDA, Dr. Chahal Referring Provider 1(33 0) Emmanuel Mancuso Attending Provider Yusuf LINDA, Dr. Chahal Other Provider [phone] Altagracia LINDA, Dr. Pickard Attending Provider Oleghe, Efewongbe Attending Unavailable Oleghe, Efewongbe Primary Care Unavailable Oleghe, Efewongbe Referring Unavailable Oleghe, Efewongbe Referring Unavailable Oleghe, Efewongbe Primary Care Unavailable Neeraj Frias Attending Unavailable Oleghe, Efewongbe Consulting Unavailable Oleghe, Efewongbe Primary Care Unavailable Selena Haile Attending Unavailable Selena Haile Referring Unavailable Oleghe, Efewongbe Primary Care Unavailable [...] Referring Unavailable Oleghe, Efewongbe Primary Care Unavailable Selena Haile Attending Unavailable Oleghe, Efewongbe Primary Care Unavailable Oleghe, Efewongbe Referring Unavailable Emmanuel Mancuso Attending Unavailable Medications Current Medications Medication Drug Class(es) Dates Sig (Normalized) Sig (Original) amoxicillin 875 mg / clavulanate 125 mg oral tablet (2 sources) Penicillin-class Antibacterial Start: 08-23-2024 Amoxicillin-Pot Clavulanate 875-125 mg tablet Active 1 {tbl} PO Q12H 20 10 0 August 23, 2024 12:00am September 01, 2024 12:00am Acute sinusitis, unspecified doxycycline hyclate 100 mg oral tablet (1 source) Tetracycline-class Drug Start: 05-26-2022 End: 06-02-2022 take 1 tablet by mouth twice daily doxycycline (VIBRA-TABS) 100 mg tablet Take 1 tablet by mouth twice daily for 7 days. 14 tablet 0 05/26/2022 06/02/2022 Active Comment on above: Take 1 tablet by hay th twice daily for 7 days. ferrous sulfate 325 mg oral tablet (3 sources) Start: 06-14-2024 take 1 tablet by mouth once daily Ferrous Sulfate 325 mg (65 mg iron) tablet Active 325 mg PO daily 90 1 June 14, 2024 12:00am Multivitamin (One Daily Multivitamin) tablet (9 sources) Start: 01-20-2022 take 1 tablet by [...] psyllium 3400 mg powder for oral suspension (9 sources) Start: 11-23-2021 Psyllium Husk (Metamucil) 3.4 [...] sources) HMG-CoA Reductase Inhibitor Start: 02-11-2022 End: 08-02-2024 take 1 tablet by mouth once daily Atorvastatin 20 mg tablet Discontinued 20 mg PO DAILY 90 0 May 08, 2024 1:16pm August 02, 2024 8:28am Start: 07-31-2020 End: 02-11-2022 take 1 tablet by mouth once daily Atorvastatin 10 mg tablet Discontinued 10 mg PO DAILY 90 0 October 19, 2021 8:14am February 11, 2022 2:31pm benzonatate 100 mg oral capsule (1 source) Non-narcotic Antitussive Start: 12-11-2014 take 1 capsule by mouth every eight hours as needed benzonatate (TESSALON PERLES) 100 mg capsule Take 1 capsule by mouth three times daily as needed for Cough. 20 capsule 0 12/11/2014 Active Comment on above: Take 1 capsule by mo [facility] three times daily as needed for Cough. calcium carbonate 1500 mg oral tablet (9 sources) Start: 01-20-2022 End: 12-01-2022 take 1 [...] by mouth. ciprofloxacin 500 mg oral tablet (6 sources) Quinolone Antimicrobial Start: 09-13-2022 End: 12-01-2022 take 1 tablet by mouth twice daily Ciprofloxacin Hcl (Cipro) 500 mg tablet Discontinued 500 mg PO TWICE A DAY 6 0 September 13, 2022 12:00am December 01, 2022 10:56am Dzdxouksbpae-Tx-Qfu n-Minerals (Women's Daily Multivitamin) 18-0.4 mg Tablet (10 sources) Start: 03-16-2021 End: 11-16-2021 Tbqutwwnxlxv-Yg-Vi on-Minerals (Women's Daily Multivitamin) 18-0.4 mg Tablet Discontinued 1 {tbl} PO DAILY March 16, 2021 1:00am November 16, 2021 1:05pm Start: 03-16-2021 End: 11-16-2021 take 1 tablet by mouth once daily Amakovwhcmhz-By-Yzgk-Minerals (Women's D aily Multivitamin) 18-0.4 mg Tablet Discontinued 1 TABLET PO DAILY March 16, 2021 12:00am November 16, 2021 12:05pm Start: 03-16-2021 End: 11-16-2021 take 1 tablet by mouth once daily Yalbstvnmtwy-Yg-Mhzj-Minerals (Women's D aily Multivitamin) 18-0.4 mg Tablet Discontinued 1 TABLET PO DAILY March 16, 2021 1:00am November 16, 2021 1:05pm Problems Active Problems Problem Classification Problem Date Documented Date Episodic/Chronic Acquired foot deformities (6 sources) Bunion; Translations: [Bunion of left foot] 05-17-2023 Episodic Deficiency and other anemia (4 sources) Anemia; Translations: [Anemia, unspecified] 02-20-2024 Episodic Deficiency and other anemia (1 source) Anemia, unspecified; Translations: [Anemia, unspecified] Onset: 07-03-2024 Episodic Disorders of lipid metabolism (12 sources) Hyperlipidemia; Translations: [Hyperlipidemia, unspecified] Onset: 09-13-2024 03-16-2021 Chronic Comment on above: ON MED Diverticulosis and diverticulitis (9 sources) Diverticular disease; Translations: [Diverticulosis of intestine, part unspecified, without perforation or abscess without bleeding] 11-23-2021 Chronic Intestinal infection (7 sources) Traveler's diarrhea; Translations: [Infectious gastroenteritis and colitis, unspecified] 09-13-2022 Episodic Nonmalignant breast conditions (7 sources) Breast lump; Translations: [Unspecified lump in unspecified breast] 12-01-2022 Episodic Comment on above: diagnostic mammogram Other connective tissue disease (1 source) Bursitis of olecranon of left elbow; Translations: [Olecranon bursitis, left elbow] Episodic Other upper respiratory infections (3 sources) Acute sinusitis; Translations: [Acute sinusitis, unspecified] Onset: 08-23-2024 08-23-2024 Episodic Residual codes; unclassified (10 sources) Family history of malignant neoplasm of ovary; Translations: [Family history of malignant neoplasm of ovary] 2020 Episodic Comment on above: Negative EMPOWER misa tMother dec age 65 ovarian cancer Skin and subcutaneous tissue infections (1 source) Infection of skin; Translations: [Local infection of the skin and subcutaneous tissue, unspecified] Episodic Superficial injury; contusion (12 sources) Contusion of hand; Translations: [Contusion of right hand, initial encounter] Episodic Past or Other Problems Problem Classification Problem Date Documented Da te Episodic/Chronic Other screening for suspected conditions (not mental disorders or infectious disease) (11 sources) Patient encounter status; Translations: [Encounter for screening for malignant neoplasm of colon] Onset: 01-26-2024 01-21-2021 Episodic Results Test Name Value Interpretation Reference Range Facility Coronary Angiography CTon Coronary Angiography CT [facility] Imaging Services [address] [place] [address] 08/23/24 1218 MR#: [id number] Acct: [id number] Name: CARINA LOPEZ Rep #: [id number] : 1975 48 From: Neeraj Frias MD PCP: Dr. Fela Goldberg MD Status:REG CLI Y Location: CT Calcium Scoring Date of Study:: 08/23/24 Indications Indications: Hyperlipidemia family history Coronary Calcium Scoring: High-resolution Computed Tomographic imaging of the chest was performed on [08/23/2024], with particular attention paid to the coronary arteries. Images from the examination were analyzed for the presence and extent of coronary artery calcification , using coronary calcium quantification software. The patient tolerated the procedure well and there were no complications. The results of the coronary calcification analysis are provided below. Findings Coronary Artery Left Main (LM): 0 Left Anterior Descending (LAD): 0 Left Circumflex (LCX): 15.8 Right Coronary Artery (RCA): 0 Total Agatston Score: 15.8 Percentile Rankinth and 90th percentile Calcium Scoring Interpretation: Different methods to categorize the overall amount of coronary plaque. Overall amount CAC SIS Visual of coronary plaque P1 Mild -100 <2 1-2 vessels with mild amount of plaque P2 Moderate 101-300 3-4 1-2 vessels with moderate amount, 3 vessels with mild amount of plaque P3 Severe 301-999 5-7 3 vessels with moderate amount, 1 vessel with severe amount of plaque P4 Extensive >1000 >8 2-3 vessels with severe amount of plaque Calcium Score: Mild: 1-2 vessels w/mild amount of plaque Conclusion: Mild focal atherosclerotic plaquing noted 08/23/24 1219 Date Neeraj Frias MD Cosigner Signature (if applicable): Date CC: Dr. Neeraj Frias MD; Dr. Fela Goldberg MD Signed Normal [facility] Limited Chest CT Cardiac Onl yon 08-23-[address] Cardiac Only [facility] Imaging Services [address] [place] [id number] Cardiac Only MR#: [id number] Acct: [id number] Name: CARINA LOPEZ Rep #: [id number] : 1975 F 48 From: Bryan chung MD PCP: Dr. Fela Goldberg MD Status: [facility] Study: Limited Chest CT Cardiac Only Date of Exam: Exam# [id number] Ordering Dr: Fela Goldberg MD PROCEDURE: LIMITED CHEST CT CARDIAC ONLY 08/23/2024 REASON FOR EXAM: SCREENING FOR CARDIOVASCULAR CONDITION TECHNIQUE: LIMITED CHEST CT CARDIAC ONLY CONTRAST: None One or more dose reduction techniques were used (e.g., Automated exposure control, adjustment of the mA and/or kV according to patient size, use of iterative reconstruction technique). RADIATION DOSE SUMMARY: CTDlvol: 12.19 mGy DLP: 219.42 mGycm COMPARISON: None FINDINGS: Coronary artery calcification. The heart is not enlarged. The lungs are clear. CT/Limited Chest CT Cardiac Only IMPRESSION: Coronary artery calcification. Reading Location: [place] [address] CC: Dr. Fela Goldberg MD Communications Designer: Signed Normal [facility] Urgent Care Visit Reporton 0 08-23-2024 Urgent Care Visit Report [facility] [address], [address] [place] [address] OFFICE VISIT Date of Service: 08/23/24 MR#: [id number] Acct: [id number] Name: CARINA LOPEZ Rep #: [id number] : 1975 Provider: CARRIE Verde Age/Sex: 48/F Location: 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 pt denies fever, ST. pt states frequent sinus infections, feels same. 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 Patient denies fever, chills or sweats. No hemoptysis, shortness of breath or difficulty. No loss of taste or smell. No other associated symptoms or alleviating/aggrava ting factors. ROS Const Constitutional: No other (As above) Exam Const General: cooperative and healthy appearing HENMT Head: normal to inspection Ears: hearing grossly normal bilaterally, TM's normal bilaterally and EAC's normal Nose: nasal discharge purulent Face and sinus: sinus tenderness frontal and maxillary Mouth: oral mucosae normal Throat: abnormal tonsil bilaterally erythema and hypertrophy 1+ and postnasal drainage Resp Effort Inspection: normal respiratory effort Auscultation: Bilateral: Clear to Auscultation Cardio Palpation: normal PMI Rate: regular rate Rhythm: regular rhythm Neuro General: patient alert and CN's II-XI intact bilaterally Psych Appearance: grossly normal Mental Status: mental status grossly normal Coding Level of Care Code Off vis,est,level 3 Diagnoses Acute sinusitis J01.90 Assessment and Plan Assessment and Plan (1) Acute sinusitis: Status: Acute Plan: Augmentin as prescribed today. Encouraged to get plenty of rest, drink lots of clear liquids, and use Tylenol or Ibuprofen (unless contraindicated) for fever and comfort. Patient also educated on other symptomatic management techniques. To be seen in 7-10 days if no improvement; sooner if worsening of symptoms. Patient advised of potential red flags and when appropriate to report to the ED. Patient verbalized understanding and agreement of the above. Medications: New amoxicillin-pot clavulanate 875-125 mg 1 TAB PO Q12H 20 tabs 0RF 10 days J01.90 - Acute sinusitis, unspecified Clinical Quality Measures Falls Risk Screening/Assistive Devices Have you fallen in the past year?: No 08/23/24 0844 Date Emmanuel Prater Signature: Date (if applicable) CC: Normal [facility] Stool Occult Blood iFOBon STOB Negative Normal [facility] Comment on above: Performed By: #### M 100.7900 ####[facility] [address] [place], [address] Stool gastrointestinal hemog lobin detection by immunologic methodOrdered By: Fela Goldberg on 06-26-2024 Lower GI hemoglobin IA Ql (Stl) [facility] Ferritinon 06-11-2024 Ferritin [Mass/Vol] 11 ng/mL Low 22-378 [facility] Comment on above: Performed By: #### L 503.6550, L503.6030 #### [facility] [address] [place], [place], [id number] Iron measurement (mass/mass) Ordered By: Fela Goldberg on 06-11-2024 Iron (Unsp spec) [Mass/Mass] 23 ug/dL Low 50-170 [facility] Iron+Iron Binding Capacityon 06-11-2024 Iron [Mass/Vol] 23 ug/dL Low 50-170 [facility] Comment on above: Performed By: #### L 503.6550, L503.6030 #### [facility] [address] [place], [address] UIBC 293 ug/dL Normal 228-428 [facility] Comment on above: Performed By: #### L 503.6550, L503.6030 #### [facility] [address] [place], [address] No Panel InformationOrdered By: Fela Goldberg on 06-11-2024 Unsaturated Iron Binding Capacity 293 ug/dL 228-428 [facility] Serum or plasma ferritin avtar surement (mass/volume)Ordered By: Fela Goldberg on 06-11-2024 Ferritin [Mass/Vol] 11 ng/mL Low 22-378 [facility] Serum or plasma iron saturat ion measurement (mass fraction)Ordered By: Fela Goldberg on 06-11-2024 Iron saturation [Mass fraction] 7.3 % Low 13-59 [facility] Comment on above: Previous reported re sult: 7.0 %Edited by: LESLIE on 06/11/24:1458 AMENDED REPORT 06/11/24 1458 IRON SATURATION previously reported as: 7.0 L % Absolute lymphocyte countOrd ered By: Kaylahmau Goldberg on 06-04-2024 Lymphocytes Auto (Unsp spec) [#/Vol] 1.64 10*3/uL 0.83-4.51 [facility] Absolute neutrophil countOrd ered By: brendaarrow rockefrain Hinojosabrittanychrystal on 06-04-2024 Neutrophils (Bld) [#/Vol] 6.8 10*3/uL 2.0-7.7 [facility] Automated lymphocyte count a s percentage of total leukocytesOrdered By: Fela Goldberg on 06-04-2024 Lymphocytes/100 WBC Auto (Unsp spec) 17.9 % Low 19-41 [facility] Basophil percentageOrdered B y: Kaylahmau Goldberg on 06-04-2024 Basophils/100 WBC (Bld) 0.7 % 0-1 [facility] CBC W/Diff, Automatedon 05-09 Absolute Lymph 1.64 X10 3/uL Normal 0.83-4.51 [facility] Comment on above: Performed By: #### L 100.0100 #### [facility] [address] [place], [address] Absolute Neut 6.8 X10 3/uL Normal 2.0-7.7 [facility] Comment on above: Performed By: #### L 100.0100 #### [facility] [address] [facility] [place], [address] Basophils/100 WBC (Bld) 0.7 % Normal 0-1 [facility] Comment on above: Performed By: #### L 100.0100 #### [facility] [address] [place], [address] Eosinophils/100 WBC (Bld) 1.0 % Normal 0-5 [facility] Comment on above: Performed By: #### L 100.0100 #### [facility] [address] [place], [address] Erythrocyte distribution width (RBC) [Ratio] 14.2 % Normal 11.6-14.6 [facility] Comment on above: Performed By: #### L 100.0100 #### [facility] [address] [place], [address] Hematocrit (Bld) [Volume fraction] 35.0 % Low 37-47 [facility] Comment on above: Performed By: #### L 100.0100 #### [facility] [address] [place], [address] Hemoglobin (Bld) [Mass/Vol] 11.5 g/dL Low 12.0-15.0 [facility] Comment on above: Performed By: #### L 100.0100 #### [facility] [address] [place], [address] IG% 0.200 Normal 0.0-0.9 [facility] Comment on above: Result Comment: IG% - Immature Granulocytes (promyelocytes, myelocytes and metamyelocytes) > 1% indicates that a LEFT SHIFT is Present. Performed By: #### L 100.0100 #### [facility] [address] [place], [address] Lymphocytes/100 WBC (Bld) 17.9 % Low 19-41 [facility] Comment on above: Performed By: #### L 100.0100 #### [facility] [address] [place], [address] MCH (RBC) [Entitic mass] 29.9 pg Normal 27.0-32.0 [facility] Comment on above: Performed By: #### L 100.0100 #### [facility] [address] [place], [address] MCHC (RBC) [Mass/Vol] 32.9 g/dL Normal 32-36 [facility] Comment on above: Performed By: #### L 100.0100 #### [facility] [address] [place], [address] MCV (RBC) [Entitic vol] 90.9 fL Normal 81-99 [facility] Comment on above: Performed By: #### L 100.0100 #### [facility] [address] [place], [address] Monocytes/100 WBC (Bld) 5.8 % Normal 0-10 [facility] Comment on above: Performed By: #### L 100.0100 #### [facility] [address] [place], [address] Neutrophils/100 WBC (Bld) 74.4 % High 47-70 [facility] Comment on above: Performed By: #### L 100.0100 #### [facility] [address] [place], [address] Nucleated RBC (Bld) [#/Vol] 0 10*3/uL Normal 0-5 [facility] Comment on above: Performed By: #### L 100.0100 #### [facility] [address] [place], [address] Platelet mean volume (Bld) [Entitic vol] 9.7 fL Normal 6.2-12.0 [facility] Comment on above: Performed By: #### L 100.0100 #### [facility] [address] [place], [address] Platelets (Bld) [#/Vol] 329 10*3/uL Normal 150-450 [facility] Comment on above: Performed By: #### L 100.0100 #### [facility] [address] [place], [address] RBC (Bld) [#/Vol] 3.85 10*6/uL Low 4.2-5.4 [facility] Comment on above: Performed By: #### L 100.0100 #### [facility] [address] [place], [address] RDW SD 47.5 fl High 35.1-43.9 [facility] Comment on above: Performed By: #### L 100.0100 #### [facility] [address] [place], [address] WBC (Bld) [#/Vol] 9.2 10*3/uL Normal 4.4-11.0 [facility] Comment on above: Performed By: #### L 100.0100 #### [facility] [address] [place], [address] Eosinophil percentageOrdered By: Fela Goldberg on 06-04-2024 Eosinophils/100 WBC (Bld) 1.0 % 0-5 [facility] Erythrocyte distribution wid th ratioOrdered By: Fela Goldberg on 06-04-2024 Erythrocyte distribution width (RBC) [Ratio] 14.2 % 11.6-14.6 [facility] Erythrocyte distribution wid th standard deviationOrdered By: Fela Goldberg on 06-04-2024 Erythrocyte distribution width (RBC) [Ratio] 47.5 fl High 35.1-43.9 [facility] Hematocrit Auto (Bld) [Volum e fraction]Ordered By: Fela Goldberg on 06-04-2024 Hematocrit (Bld) [Volume fraction] 35.0 % Low 37-47 [facility] Hemoglobin measurementOrdere d By: Fela Goldberg on 06-04-2024 Hemoglobin (Bld) [Mass/Vol] 11.5 g/dL Low 12.0-15.0 [facility] Immature granulocytes/100 WB C Auto (Bld)Ordered By: Kaylahmau Hinojosabrittanychrystal on 06-04-2024 Immature granulocytes/100 WBC (Bld) 0.200 % 0.0-0.9 [facility] Comment on above: IG% - Immature Granu locytes (promyelocytes, myelocytes and metamyelocytes) > 1% indicates that a LEFT SHIFT is Present. MCV (mean corpuscular volume ) determinationOrdered By: Fela Goldberg on 06-04-2024 MCV (RBC) [Entitic vol] 90.9 fL 81-99 [facility] Mean corpuscular hemoglobin (MCH) determinationOrdered By: mau Hinojosabrittanychrystal on 06-04-2024 MCH (RBC) [Entitic mass] 29.9 pg 27.0-32.0 [facility] Mean corpuscular hemoglobin concentration (MCHC) determinationOrdered By: Fela Hinojosabrittanychrystal on 06-04-2024 MCHC (RBC) [Mass/Vol] 32.9 g/dL 32-36 [facility] Mean platelet volume determi nationOrdered By: Abebamichelefrain Hinojosabrittanychrystal on 06-04-2024 Platelet mean volume (Bld) [Entitic vol] 9.7 fL 6.2-12.0 [facility] Monocyte percentageOrdered B y: Jaylenefrain Hinojosabrittanychrystal on 06-04-2024 Monocytes/100 WBC (Bld) 5.8 % 0-10 [facility] Neutrophil percentageOrdered By: Fela Hinojosabrittanychrystal on 06-04-2024 Neutrophils/100 WBC (Bld) 74.4 % High 47-70 [facility] Nucleated red blood cell per centageOrdered By: Abebamichelefrain Hinojosabrittanychrystal on 06-04-2024 Nucleated RBC/100 WBC (Bld) [Ratio] 0 % 0-5 [facility] Platelet countOrdered By: Kaylah mau Ashishbrittanychrystal on 06-04-2024 Platelets (Bld) [#/Vol] 329 10*3/uL 150-450 [facility] RBC Auto (Bld) [#/Vol]Ordere d By: Kaylahkariefrain Hinojosabrittanychrystal on 06-04-2024 RBC (Bld) [#/Vol] 3.85 10*6/uL Low 4.2-5.4 [facility] White blood cell (WBC) count Ordered By: Jaylenefrain Goldberg on 06-04-2024 WBC (Bld) [#/Vol] 9.2 10*3/uL 4.4-11.0 [facility] Absolute lymphocyte countOrd ered By: Fela Goldberg on 02-20-2024 Lymphocytes Auto (Unsp spec) [#/Vol] 1.12 10*3/uL 0.83-4.51 [facility] Absolute neutrophil countOrd ered By: Fela Mendietachrystal on 02-20-2024 Neutrophils (Bld) [#/Vol] 3.2 10*3/uL 2.0-7.7 [facility] Albumin to globulin ratioOrd ered By: brendaarrow rockefrain Mendietachrystal on 02-20-2024 Albumin/Globulin [Mass ratio] 1.1 {ratio} 0.9-2.4 [facility] Automated lymphocyte count a s percentage of total leukocytesOrdered By: Fela Goldberg on 02-20-2024 Lymphocytes/100 WBC Auto (Unsp spec) 23.1 % 19-41 [facility] Basophil percentageOrdered B y: Jaylenefrain Hinojosabrittanychrystal on 02-20-2024 Basophils/100 WBC (Bld) 0.6 % 0-1 [facility] Bilirubin, totalOrdered By: Kaylahbrendamichelefrain Hinojosabrittanychrystal on 02-20-2024 Bilirubin [Mass/Vol] 0.50 mg/dL 0.20-1.00 [facility] Comment on above: For patients on eltr ombopag therapy, use of Dimension Dawson TBIL is not recommended. Blood urea nitrogen (BUN)/cr eatinine ratioOrdered By: brendaarrow rockefrain Goldberg on 02-20-2024 Urea nitrogen/Creatinine [Mass ratio] 14.2 mg/mg 10-20 [facility] CBC W/Diff, Automatedon 02-07 Absolute Lymph 1.12 X10 3/uL Normal 0.83-4.51 [facility] Comment on above: Performed By: #### L 100.0100, L500.4050, L500.4100 #### [facility] [address] [place], [address] Absolute Neut 3.2 X10 3/uL Normal 2.0-7.7 [facility] Comment on above: Performed By: #### L 100.0100, L500.4050, L500.4100 #### [facility] [address] [place], [address] Basophils/100 WBC (Bld) 0.6 % Normal 0-1 [facility] Comment on above: Performed By: #### L 100.0100, L500.4050, L500.4100 #### [facility] [address] [place], [address] Eosinophils/100 WBC (Bld) 1.7 % Normal 0-5 [facility] Comment on above: Performed By: #### L 100.0100, L500.4050, L500.4100 #### [facility] [address] [place], [address] Erythrocyte distribution width (RBC) [Ratio] 12.9 % Normal 11.6-14.6 [facility] Comment on above: Performed By: #### L 100.0100, L500.4050, L500.4100 #### [facility] [address] [place], [address] Hematocrit (Bld) [Volume fraction] 36.8 % Low 37-47 [facility] Comment on above: Performed By: #### L 100.0100, L500.4050, L500.4100 #### [facility] [address] [place], [address] Hemoglobin (Bld) [Mass/Vol] 11.6 g/dL Low 12.0-15.0 [facility] Comment on above: Performed By: #### L 100.0100, L500.4050, L500.4100 #### [facility] [address] [place], [address] IG% 0.400 Normal 0.0-0.9 [facility] Comment on above: Result Comment: IG% - Immature Granulocytes (promyelocytes, myelocytes and metamyelocytes) > 1% indicates that a LEFT SHIFT is Present. Performed By: #### L 100.0100, L500.4050, L500.4100 #### [facility] [address] [place], [address] Lymphocytes/100 WBC (Bld) 23.1 % Normal 19-41 [facility] Comment on above: Performed By: #### L 100.0100, L500.4050, L500.4100 #### [facility] [address] [place], [address] MCH (RBC) [Entitic mass] 29.0 pg Normal 27.0-32.0 [facility] Comment on above: Performed By: #### L 100.0100, L500.4050, L500.4100 #### [facility] [address] [place], [address] MCHC (RBC) [Mass/Vol] 31.5 g/dL Low 32-36 [facility] Comment on above: Performed By: #### L 100.0100, L500.4050, L500.4100 #### [facility] [address] [place], [address] MCV (RBC) [Entitic vol] 92.0 fL Normal 81-99 [facility] Comment on above: Performed By: #### L 100.0100, L500.4050, L500.4100 #### [facility] [address] [place], [address] Monocytes/100 WBC (Bld) 7.4 % Normal 0-10 [facility] Comment on above: Performed By: #### L 100.0100, L500.4050, L500.4100 #### [facility] [address] [place], [address] Neutrophils/100 WBC (Bld) 66.8 % Normal 47-70 [facility] Comment on above: Performed By: #### L 100.0100, L500.4050, L500.4100 #### [facility] [address] [place], [address] Nucleated RBC (Bld) [#/Vol] 0 10*3/uL Normal 0-5 [facility] Comment on above: Performed By: #### L 100.0100, L500.4050, L500.4100 #### [facility] [address] [place], [address] Platelet mean volume (Bld) [Entitic vol] 10.0 fL Normal 6.2-12.0 [facility] Comment on above: Performed By: #### L 100.0100, L500.4050, L500.4100 #### [facility] [address] [place], [address] Platelets (Bld) [#/Vol] 311 10*3/uL Normal 150-450 [facility] Comment on above: Performed By: #### L 100.0100, L500.4050, L500.4100 #### [facility] [address] [place], [address] RBC (Bld) [#/Vol] 4.00 10*6/uL Low 4.2-5.4 [facility] Comment on above: Performed By: #### L 100.0100, L500.4050, L500.4100 #### [facility] [address] [place], [address] RDW SD 43.1 fl Normal 35.1-43.9 [facility] Comment on above: Performed By: #### L 100.0100, L500.4050, L500.4100 #### [facility] [address] [place], [address] WBC (Bld) [#/Vol] 4.8 10*3/uL Normal 4.4-11.0 [facility] Comment on above: Performed By: #### L 100.0100, L500.4050, L500.4100 #### [facility] [address] [place], [address] Carbon dioxide measurementOr dered By: Fela Goldberg on 02-20-2024 CO2 [Moles/Vol] 27.0 mmol/L 21.0-32.0 [facility] Chloride measurementOrdered By: Fela Goldberg on 02-20-2024 Chloride [Moles/Vol] 108 mmol/L High 98-107 [facility] Comprehensive Metabolic Prof ilon 02-20-2024 Albumin [Mass/Vol] 3.7 g/dL Normal 3.2-5.0 [facility] Comment on above: Performed By: #### L 100.0100, L500.4050, L500.4100 #### [facility] [address] [place], [address] Albumin/Globulin [Mass ratio] 1.1 {ratio} Normal 0.9-2.4 [facility] Comment on above: Performed By: #### L 100.0100, L500.4050, L500.4100 #### [facility] [address] [place], [address] ALK P 40 U/L Low 45-117 [facility] Comment on above: Performed By: #### L 100.0100, L500.4050, L500.4100 #### [facility] [address] [place], [address] ALT [Catalytic activity/Vol] 18 U/L Normal 13-56 [facility] Comment on above: Performed By: #### L 100.0100, L500.4050, L500.4100 #### [facility] [address] [place], [address] AST [Catalytic activity/Vol] 17 U/L Normal 15-37 [facility] Comment on above: Performed By: #### L 100.0100, L500.4050, L500.4100 #### [facility] [address] [place], [address] Bilirubin [Mass/Vol] 0.50 mg/dL Normal 0.20-1.00 [facility] Comment on above: Result Comment: For patients on eltrombopag therapy, use of Dimension Dawson TBIL is not recommended. Performed By: #### L 100.0100, L500.4050, L500.4100 #### [facility] [address] [place], [address] BUN/CRE 14.2 RATIO Normal 10-20 [facility] Comment on above: Performed By: #### L 100.0100, L500.4050, L500.4100 #### [facility] [address] [place], [address] CA,Total 8.7 mg/dL Normal 8.5-10.1 [facility] Comment on above: Performed By: #### L 100.0100, L500.4050, L500.4100 #### [facility] [address] [place], [address] Chloride [Moles/Vol] 108 mmol/L High 98-107 [facility] Comment on above: Performed By: #### L 100.0100, L500.4050, L500.4100 #### [facility] [address] [place], [address] CO2 [Moles/Vol] 27.0 mmol/L Normal 21.0-32.0 [facility] Comment on above: Performed By: #### L 100.0100, L500.4050, L500.4100 #### [facility] [address] [place], [address] Creatinine [Mass/Vol] 0.77 mg/dL Normal 0.55-1.02 [facility] Comment on above: Result Comment: The validity of the calculated GFR GFRAA in patients over 70 years has not been determined. Clinical correlation is essential. Performed By: #### L 100.0100, L500.4050, L500.4100 #### [facility] [address] [place], [address] EST GFR - AA 102 mL/min Normal >60 [facility] Comment on above: Result Comment: Afri can Cuban GFR Calc Performed By: #### L 100.0100, L500.4050, L500.4100 #### [facility] [address] [place], [address] GAP 4 Low 5-15 [facility] Comment on above: Performed By: #### L 100.0100, L500.4050, L500.4100 #### [facility] [address] [place], [address] GFR/1.73 sq M.predicted among non-blacks MDRD (S/P/Bld) [Vol rate/Area] 85 mL/min/{1.73_m2} Normal >60 [facility] Comment on above: Result Comment: Non- GFR Calc Performed By: #### L 100.0100, L500.4050, L500.4100 #### [facility] [address] [place], [address] Globulin (S) [Mass/Vol] 3.3 g/dL Normal 2.2-4.2 [facility] Comment on above: Performed By: #### L 100.0100, L500.4050, L500.4100 #### [facility] [address] [place], [address] Glucose [Mass/Vol] 90 mg/dL Normal 74-106 [facility] Comment on above: Performed By: #### L 100.0100, L500.4050, L500.4100 #### [facility] [address] [place], [address] Potassium [Moles/Vol] 3.8 mmol/L Normal 3.5-5.1 [facility] Comment on above: Performed By: #### L 100.0100, L500.4050, L500.4100 #### [facility] [address] [place], [address] Sodium [Moles/Vol] 139 mmol/L Normal 136-145 [facility] Comment on above: Performed By: #### L 100.0100, L500.4050, L500.4100 #### [facility] [address] [place], [address] T PROT 7.0 g/dL Normal 6.4-8.2 [facility] Comment on above: Performed By: #### L 100.0100, L500.4050, L500.4100 #### [facility] [address] [place], [address] Urea nitrogen [Mass/Vol] 11 mg/dL Normal 7-18 [facility] Comment on above: Performed By: #### L 100.0100, L500.4050, L500.4100 #### [facility] [address] [place], [address] Eosinophil percentageOrdered By: Fela Goldberg on 02-20-2024 Eosinophils/100 WBC (Bld) 1.7 % 0-5 [facility] Erythrocyte distribution wid th ratioOrdered By: Fela Goldberg on 02-20-2024 Erythrocyte distribution width (RBC) [Ratio] 12.9 % 11.6-14.6 [facility] Erythrocyte distribution wid th standard deviationOrdered By: Fela Goldberg on 02-20-2024 Erythrocyte distribution width (RBC) [Ratio] 43.1 fl 35.1-43.9 [facility] Glomerular filtration rate ( GFR) estimationOrdered By: Fela Goldberg on 02-20-2024 GFR/1.73 sq M.predicted among non-blacks MDRD (S/P/Bld) [Vol rate/Area] 85 mL/min/{1.73_m2} >60 [facility] Comment on above: Non- GFR Calc Glucose measurementOrdered B y: Fela Goldberg on 02-20-2024 Glucose [Mass/Vol] 90 mg/dL 74-106 [facility] Hematocrit Auto (Bld) [Volum e fraction]Ordered By: Fela Goldberg on 02-20-2024 Hematocrit (Bld) [Volume fraction] 36.8 % Low 37-47 [facility] Hemoglobin measurementOrdere d By: Fela Goldberg on 02-20-2024 Hemoglobin (Bld) [Mass/Vol] 11.6 g/dL Low 12.0-15.0 [facility] High density lipoprotein (HD L) measurementOrdered By: Fela Goldberg on 02-20-2024 Cholesterol in HDL [Mass/Vol] 75 mg/dL >40 [facility] Comment on above: The drugs N-Acetylcy steine and Metamizole may falsely depress this assay. Reference Range HDL <40 mg/dL Low HDL Cholesterol HDL >or= 60 mg/dL High HDL Cholesterol Immature granulocytes/100 WB C Auto (Bld)Ordered By: Fela Goldberg on 02-20-2024 Immature granulocytes/100 WBC (Bld) 0.400 % 0.0-0.9 [facility] Comment on above: IG% - Immature Granu locytes (promyelocytes, myelocytes and metamyelocytes) > 1% indicates that a LEFT SHIFT is Present. Internal Medicine Office Vis micha 02-20-2024 Internal Medicine Office Visit [facility] [address] [place], [place] [address] OFFICE VISIT Date of Service: 02/20/24 MR#: [id number] Acct: [id number] Name: CARINA LOPEZ Rep #: [id number] : 1975 Provider: Dr. Fela bean MD Age/Sex: 48/F Location: 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 Normal [facility] - Chemistry and C hemistry - challengeOrdered By: Fela Goldberg on 02-20-2024 AST [Catalytic activity/Vol] 17 U/L 15-37 [facility] Lipid Profileon 02-20-2024 Cholesterol [Mass/Vol] 170 mg/dL Normal 200 [facility] Comment on above: Result Comment: <200 mg/dL Desirable 200-240 mg/dL Borderline >240 mg/dL High Risk Performed By: #### L 100.0100, L500.4050, L500.4100 #### [facility] [address] [place], [address] Cholesterol in HDL [Mass/Vol] 75 mg/dL Normal [facility] Comment on above: Result Comment: The drugs N-Acetylcysteine and Metamizole may falsely depress this assay. Reference Range HDL <40 mg/dL Low HDL Cholesterol HDL >or= 60 mg/dL High HDL Cholesterol Performed By: #### L 100.0100, L500.4050, L500.4100 #### [facility] [address] [place], [address] Cholesterol in LDL [Mass/Vol] 81 mg/dL Normal 0-130 [facility] Comment on above: Performed By: #### L 100.0100, L500.4050, L500.4100 #### [facility] [address] [place], [address] Cholesterol in VLDL [Mass/Vol] 14 mg/dL Normal 5-40 [facility] Comment on above: Performed By: #### L 100.0100, L500.4050, L500.4100 #### [facility] [address] [place], [address] Triglyceride [Mass/Vol] 69 mg/dL Normal [facility] Comment on above: Result Comment: The drugs N-Acetylcysteine and Metamizole may falsely depress this assay. Serum Triglycerides Reference Interval Normal <150 mg/dL Borderline high 150 - 199 mg/dL High 200 - 499 mg/dL Very High > or = 500 mg/dL Performed By: #### L 100.0100, L500.4050, L500.4100 #### [facility] [address] [place], [place], [address] Low density lipoprotein (LDL ) cholesterol measurementOrdered By: Fela Goldberg on 02-20-2024 Cholesterol in LDL [Mass/Vol] 81 mg/dL 0-130 [facility] MCV (mean corpuscular volume ) determinationOrdered By: Fela Goldberg on 02-20-2024 MCV (RBC) [Entitic vol] 92.0 fL 81-99 [facility] Mean corpuscular hemoglobin (MCH) determinationOrdered By: Fela Goldberg on 02-20-2024 MCH (RBC) [Entitic mass] 29.0 pg 27.0-32.0 [facility] Mean corpuscular hemoglobin concentration (MCHC) determinationOrdered By: Fela Goldberg on 02-20-2024 MCHC (RBC) [Mass/Vol] 31.5 g/dL Low 32-36 [facility] Mean platelet volume determi nationOrdered By: Fela Goldberg on 02-20-2024 Platelet mean volume (Bld) [Entitic vol] 10.0 fL 6.2-12.0 [facility] Monocyte percentageOrdered B y: Fela Goldberg on 02-20-2024 Monocytes/100 WBC (Bld) 7.4 % 0-10 [facility] Neutrophil percentageOrdered By: Fela Goldberg on 02-20-2024 Neutrophils/100 WBC (Bld) 66.8 % 47-70 [facility] Nucleated red blood cell per centageOrdered By: Fela Goldberg on 02-20-2024 Nucleated RBC/100 WBC (Bld) [Ratio] 0 % 0-5 [facility] Platelet countOrdered By: Kaylah Goldberg on 02-20-2024 Platelets (Bld) [#/Vol] 311 10*3/uL 150-450 [facility] Potassium measurementOrdered By: Fela Goldberg on 02-20-2024 Potassium [Moles/Vol] 3.8 mmol/L 3.5-5.1 [facility] RBC Auto (Bld) [#/Vol]Ordere d By: Fela Goldberg on 02-20-2024 RBC (Bld) [#/Vol] 4.00 10*6/uL Low 4.2-5.4 [facility] Serum anion gap measurementO rdered By: Fela Goldberg on 02-20-2024 Anion gap [Moles/Vol] 4 mmol/L Low 5-15 [facility] Serum globulin measurementOr dered By: Fela Goldberg on 02-20-2024 Globulin (S) [Mass/Vol] 3.3 g/dL 2.2-4.2 [facility] Serum or plasma alanine gunn otransferase (ALT) measurementOrdered By: Fela Goldberg on 02-20-2024 ALT [Catalytic activity/Vol] 18 U/L 13-56 [facility] Serum or plasma albumin joan urement (mass/volume)Ordered By: Fela Goldberg on 02-20-2024 Albumin [Mass/Vol] 3.7 g/dL 3.2-5.0 [facility] Serum or plasma alkaline jose sphatase measurementOrdered By: Fela Goldberg on 02-20-2024 ALP [Catalytic activity/Vol] 40 U/L Low 45-117 [facility] Serum or plasma calcium joan urement (mass/volume)Ordered By: Fela Goldberg on 02-20-2024 Calcium [Mass/Vol] 8.7 mg/dL 8.5-10.1 [facility] Serum or plasma cholesterol measurement (mass/volume)Ordered By: Fela Goldberg on 02-20-2024 Cholesterol [Mass/Vol] 170 mg/dL <200 [facility] Comment on above: <200 mg/dL Desirable 200-240 mg/dL Borderline >240 mg/dL High Risk Serum or plasma creatinine m easurement (mass/volume)Ordered By: Fela Goldberg on 02-20-2024 Creatinine [Mass/Vol] 0.77 mg/dL 0.55-1.02 [facility] Comment on above: The validity of the calculated GFR & GFRAA in patients over 70 years has not been determined. Clinical correlation is essential. Serum or plasma urea nitroge n measurement (mass/volume)Ordered By: Fela Goldberg on 02-20-2024 Urea nitrogen [Mass/Vol] 11 mg/dL 7-18 [facility] Sodium levelOrdered By: Abeba Goldberg on 02-20-2024 Sodium [Moles/Vol] 139 mmol/L 136-145 [facility] Total proteinOrdered By: Sebastián Goldberg on 02-20-2024 Protein [Mass/Vol] 7.0 g/dL 6.4-8.2 [facility] Triglycerides measurementOrd ered By: Fela Goldberg on 02-20-2024 Triglyceride [Mass/Vol] 69 mg/dL <199 [facility] Comment on above: The drugs N-Acetylcy steine and Metamizole may falsely depress this assay.Serum Triglycerides Reference Interval Normal <150 mg/dL Borderline high 150 - 199 mg/dL High 200 - 499 mg/dL Very High > or = 500 mg/dL Very low density lipoprotein (VLDL) cholesterol measurementOrdered By: Fela Goldberg on 02-20-2024 Very low density lipoprotein (VLDL) cholesterol measurement 14 mg/dL 5-40 [facility] White blood cell (WBC) count Ordered By: Fela Goldberg on 02-20-2024 WBC (Bld) [#/Vol] 4.8 10*3/uL 4.4-11.0 [facility] SCRN MAMM (CAD)W/KATHY BILATo n 12-30-2023 SCRN MAMM (CAD)W/KATHY BILAT [facility] [address], [place] [id number] SCRN MAMM (CAD)W/KATHY BILAT MR#: [id number] Acct: [id number] Name: CARINA LOPEZ Rep #: [id number] : 1975 F 48 From: Bryan chung MD PCP: Dr. Fela Goldberg MD Status: REG [facility] Study: SCRN MAMM (CAD)W/KATHY BILAT Date of Exam: 12/09 04/02 Exam# [id number] Ordering Dr: Selena Haile [employer]AFO[employer] SPECIALIST-C -[id number] 2 MAMMOGRAPHY - BILATERAL SCREENING REASON FOR [...] delay biopsy of a clinically suspicious abnormality. [id number] Electronically Signed: Bryan Fowler MD at 14:23 EST Reading Location ID and State: [address] [place] [address] , Service support , CC: SANJANA Haile; Dr. Fela Goldberg MD Communications Designer: Signed Normal [facility] Arch Support Technician Office Visit Reporton 12-14-2023 Arch Support Technician Office Visit Report [facility] [address], [address] [place] [address] OFFICE VISIT Date of Service: 12/14/23 MR#: [id number] Acct: [id number] Name: CARINA LOPEZ Rep #: [id number] : 1975 Provider: SANJANA Mcgee Age/Sex: 48/F [place] [facility] Status: Signed Intake Vital Signs 12/01/22 10:56 05/17/23 11:06 12/14/23 07:29 Height 5 ft 5 in 5 ft 5 in 5 ft 5 in Weight: 135 lb BMI 22.4 BP 124/78 H Intake Visit Reasons: Annual ([employer]) 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 Unknown 2007 Liberty live - full term [facility] Unknown 2009 Niall live - full term [facility] Unknown 2010 [place] [facility] - full term [facility] HPI Encounter for routine gynecological examination Details: [...] inspection: norm (more content not included)... Normal [facility] Absolute lymphocyte countOrd ered By: Dr. Goldberg on 02-11-2022 Lymphocytes Auto (Unsp spec) [#/Vol] 1.23 10*3/uL 0.83-4.51 [facility] Basophil percentageOrdered B y: Dr. Goldberg on 02-11-2022 Basophils/100 WBC (Bld) 0.8 % 0-1 [facility] Bilirubin [Mass/Vol] 0.60 mg/dL 0.20-1.00 [facility] Comment on above: For patients on eltr ombopag therapy, use of Dimension Dawson TBIL is not recommended. Chloride [Moles/Vol] 105 mmol/L 98-107 [facility] Cholesterol [Mass/Vol] 226 mg/dL <200 [facility] Comment on above: <200 mg/dL Desirable 200-240 mg/dL Borderline >240 mg/dL High Risk Eosinophils/100 WBC (Bld) 1.6 % 0-5 [facility] Glucose [Mass/Vol] 96 mg/dL 74-106 [facility] Neutrophils (Bld) [#/Vol] 3.3 10*3/uL 2.0-7.7 [facility] Neutrophils/100 WBC (Bld) 64.6 % 47-70 [facility] Potassium [Moles/Vol] 3.7 mmol/L 3.5-5.1 [facility] Protein [Mass/Vol] 7.1 g/dL 6.4-8.2 [facility] Sodium [Moles/Vol] 138 mmol/L 136-145 [facility] Triglyceride [Mass/Vol] 100 mg/dL <199 [facility] Comment on above: The drugs N-Acetylcy steine and Metamizole may falsely depress this assay.Serum Triglycerides Reference Interval Normal <150 mg/dL Borderline high 150 - 199 mg/dL High 200 - 499 mg/dL Very High > or = 500 mg/dL WBC (Bld) [#/Vol] 5.1 10*3/uL 4.4-11.0 [facility] Blood erythrocytes count (nu mber/volume)Ordered By: Dr. Goldberg on 02-11-2022 RBC (Bld) [#/Vol] 4.30 10*6/uL 4.2-5.4 [facility] Blood hemoglobin measurement (mass/volume)Ordered By: Dr. Goldberg on 02-11-2022 Hemoglobin (Bld) [Mass/Vol] 13.0 g/dL 12.0-15.0 [facility] Blood lymphocytes/100 leukoc ytesOrdered By: Dr. Goldberg on 02-11-2022 Lymphocytes/100 WBC (Bld) 24.3 % 19-41 [facility] Blood monocytes/100 leukocyt esOrdered By: Dr. Goldberg on 02-11-2022 Monocytes/100 WBC (Bld) 8.3 % 0-10 [facility] Blood platelet mean volumeOr dered By: Dr. Goldberg on 02-11-2022 Platelet mean volume (Bld) [Entitic vol] 9.7 fL 6.2-12.0 [facility] Determination of erythrocyte mean corpuscular volume (MCV)Ordered By: Dr. Goldberg on 02-11-2022 MCV (RBC) [Entitic vol] 95.3 fL 81-99 [facility] Hematocrit Auto (Bld) [Volum e fraction]Ordered By: Dr. Goldberg on 02-11-2022 Hematocrit (Bld) [Volume fraction] 41.0 % 37-47 [facility] Laboratory - Chemistry and C hemistry - challengeOrdered By: Dr. Goldberg on 02-11-2022 ALP [Catalytic activity/Vol] 42 U/L 45-117 [facility] ALT [Catalytic activity/Vol] 27 U/L 13-56 [facility] CO2 [Moles/Vol] 27.0 mmol/L 21.0-32.0 [facility] Globulin (S) [Mass/Vol] 3.0 g/dL 2.2-4.2 [facility] Urea nitrogen/Creatinine [Mass ratio] 15.3 mg/mg 10-20 [facility] Laboratory - Hematology and Cell countsOrdered By: Dr. Goldberg on 02-11-2022 Erythrocyte distribution width (RBC) [Entitic vol] 42.9 fL 35.1-43.9 [facility] Erythrocyte distribution width (RBC) [Ratio] 12.2 % 11.6-14.6 [facility] Immature granulocytes/100 WBC (Bld) 0.400 % 0.0-0.9 [facility] Comment on above: IG% - Immature Granu locytes (promyelocytes, myelocytes and metamyelocytes) > 1% indicates that a LEFT SHIFT is Present. MCH (RBC) [Entitic mass] 30.2 pg 27.0-32.0 [facility] Nucleated RBC/100 WBC (Bld) [Ratio] 0 % 0-5 [facility] MCHC Auto (RBC) [Mass/Vol]Or dered By: Dr. Goldberg on 02-11-2022 MCHC (RBC) [Mass/Vol] 31.7 g/dL 32-36 [facility] No Panel InformationOrdered By: Dr. Goldberg on 02-11-2022 Estimated GFR (MDRD) Amer 112 mL/min >60 [facility] Comment on above: GFR Calc Estimated GFR (MDRD) Non-Af Amer 93 mL/min >60 [facility] Comment on above: Non- GFR Calc Platelets bldOrdered By: Dr. Goldberg on 02-11-2022 Platelets (Bld) [#/Vol] 321 10*3/uL 150-450 [facility] Serum or plasma albumin joan urement (mass/volume)Ordered By: Dr. Goldberg on 02-11-2022 Albumin [Mass/Vol] 4.1 g/dL 3.2-5.0 [facility] Serum or plasma albumin/glob ulin mass ratioOrdered By: Dr. Goldberg on 02-11-2022 Albumin/Globulin [Mass ratio] 1.4 {ratio} 0.9-2.4 [facility] Serum or plasma calcium joan urement (mass/volume)Ordered By: Dr. Goldberg on 02-11-2022 Calcium [Mass/Vol] 8.7 mg/dL 8.5-10.1 [facility] Serum or plasma cholesterol in HDL measurement (mass/volume)Ordered By: Dr. Goldberg on 02-11-2022 Cholesterol in HDL [Mass/Vol] 76 mg/dL >40 [facility] Comment on above: The drugs N-Acetylcy steine and Metamizole may falsely depress this assay. Reference Range HDL <40 mg/dL Low HDL Cholesterol HDL >or= 60 mg/dL High HDL Cholesterol Serum or plasma cholesterol in VLDL measurement (mass/volume)Ordered By: Dr. Goldberg on 02-11-2022 Cholesterol in VLDL [Mass/Vol] 20 mg/dL 5-40 [facility] Serum or plasma creatinine m easurement (mass/volume)Ordered By: Dr. Goldberg on 02-11-2022 Creatinine [Mass/Vol] 0.72 mg/dL 0.55-1.02 [facility] Comment on above: The validity of the calculated GFR & GFRAA in patients over 70 years has not been determined. Clinical correlation is essential. Serum or plasma low density lipoprotein (LDL) cholesterol measurement (mass/volume)Ordered By: Dr. Goldberg on 02-11-2022 Cholesterol in LDL [Mass/Vol] 130 mg/dL 0-130 [facility] Serum or plasma urea nitroge n measurement (mass/volume)Ordered By: Dr. Goldberg on 02-11-2022 Urea nitrogen [Mass/Vol] 11 mg/dL 7-18 [facility] Thin prep Papanicolaou smear with manual screeningOrdered By: Dr. Goldberg on 02-11-2022 Thin prep Papanicolaou smear with manual screening 15 U/L 15-37 [facility] Thin prep Papanicolaou smear with manual screening 6 5-15 [facility] Vital Signs Date Time Vital Sign Value Performing Clinician Sapna fenton 08-23-2024 07:24-0400 Body height 165.[address] Fela Goldberg MD Work Phone: [facility] 08-23-2024 07:24-0400 Body temperature 98.4 [degF] Dr. Fela Goldberg MD Work Phone: [facility] 08-23-2024 07:24-0400 Diastolic blood pressure 62 mm[Hg] Dr. Fela Goldberg MD Work Phone: [facility] 08-23-2024 07:24-0400 Heart rate 69 /min Dr. Fela Goldberg MD Work Phone: [facility] 08-23-2024 07:24-0400 Respiratory rate 15 /min Dr. Fela Goldberg MD Work Phone: [facility] 08-23-2024 07:24-0400 SaO2% (BldA) [Mass fraction] 98 % Dr. Fela Goldberg MD Work Phone: [facility] 08-23-2024 07:24-0400 Systolic blood pressure 110 mm[Hg] Dr. Fela Goldberg MD Work Phone: [facility] 02-20-2024 08:26-0500 Body height 165.[address] Fela Goldberg MD Work Phone: [facility] 02-20-2024 08:26-0500 Body mass index (BMI) [Ratio] 23.1 kg/m2 Dr. Fela Goldberg MD Work Phone: [facility] 02-20-2024 08:26-0500 Body temperature 96.2 [degF] Dr. Fela Goldberg MD Work Phone: [facility] 02-20-2024 08:26-0500 Body weight 63.[address] Fela Goldberg MD Work Phone: [facility] 02-20-2024 08:26-0500 Diastolic blood pressure 74 mm[Hg] Dr. Fela Goldberg MD Work Phone: [facility] 02-20-2024 08:26-0500 Heart rate 66 /min Dr. Fela Goldberg MD Work Phone: [facility] 02-20-2024 08:26-0500 Respiratory rate 12 /min Dr. Fela Goldberg MD Work Phone: [facility] 02-20-2024 08:26-0500 SaO2% (BldA) [Mass fraction] 99 % Dr. Fela Goldberg MD Work Phone: [facility] 02-20-2024 08:26-0500 Systolic blood pressure 118 mm[Hg] Dr. Fela Goldberg MD Work Phone: [facility] 05-17-2023 11:06-0400 Body height 165.[address] Fela Goldberg Work Phone: [facility] 05-17-2023 11:06-0400 Body mass index (BMI) [Ratio] 21.6 kg/m2 Dr. Fela Goldberg Work Phone: [facility] 05-17-2023 11:06-0400 Body temperature 98.6 [degF] Dr. Fela Goldberg Work Phone: [facility] 05-17-2023 11:06-0400 Body weight 58.[address] Fela Goldberg Work Phone: [facility] 05-17-2023 11:06-0400 Diastolic blood pressure 66 mm[Hg] Dr. Fela Goldberg Work Phone: [facility] 05-17-2023 11:06-0400 Heart rate 74 /min Dr. Fela Goldberg Work Phone: [facility] 05-17-2023 11:06-0400 Respiratory rate 14 /min Dr. Fela Goldberg Work Phone: [facility] 05-17-2023 11:06-0400 SaO2% (BldA) [Mass fraction] 96 % Dr. Fela Goldberg Work Phone: [facility] 05-17-2023 11:06-0400 Systolic blood pressure 104 mm[Hg] Dr. Fela Goldberg Work Phone: [facility] 12-01-2022 10:56-0400 Body height 165.[address] Fela Goldberg Work Phone: [facility] 12-01-2022 10:55-0400 Body mass index (BMI) [Ratio] 21 kg/m2 Dr. Fela Goldberg Work Phone: [facility] 12-01-2022 10:55-0400 Body weight 57.[address] Fela Goldberg Work Phone: [facility] 12-01-2022 10:55-0400 Diastolic blood pressure 74 mm[Hg] Dr. Fela Goldberg Work Phone: [facility] 12-01-2022 10:55-0400 Systolic blood pressure 117 mm[Hg] Dr. Fela Goldberg Work Phone: [facility] 09-13-2022 09:50-0400 Body mass index (BMI) [Ratio] 21.4 kg/m2 Dr. Fela Goldberg Work Phone: [facility] 09-13-2022 09:50-0400 Body temperature 98.6 [degF] Dr. Fela Goldberg Work Phone: [facility] 09-13-2022 09:50-0400 Body weight 58.[address] Fela Goldberg Work Phone: [facility] 09-13-2022 09:50-0400 Diastolic blood pressure 72 mm[Hg] Dr. Fela Goldberg Work Phone: [facility] 09-13-2022 09:50-0400 Heart rate 75 /min Dr. Fela Goldberg Work Phone: [facility] 09-13-2022 09:50-0400 Respiratory rate 14 /min Dr. Fela Goldberg Work Phone: [facility] 09-13-2022 09:50-0400 SaO2% (BldA) [Mass fraction] 98 % Dr. Fela Goldberg Work Phone: [facility] 09-13-2022 09:50-0400 Systolic blood pressure 115 mm[Hg] Dr. Fela Goldberg Work Phone: [facility] 05-26-2022 18:11-0400 Body temperature 98.6 [degF] Sima Athy PA-C Work Phone: [facility] 05-26-2022 18:11-0400 Body weight 61.24 kg Sima Athy PA-C Work Phone: [facility] 05-26-2022 18:11-0400 Diastolic blood pressure 70 mm[Hg] Sima Athy PA-C Work Phone: [facility] 05-26-2022 18:11-0400 Heart rate 86 /min Sima Athy PA-C Work Phone: [facility] 05-26-2022 18:11-0400 Respiratory rate 18 /min Sima Athy PA-C Work Phone: [facility] 05-26-2022 18:11-0400 SaO2% (BldA) [Mass fraction] 99 % Sima Athy PA-C Work Phone: [facility] 05-26-2022 18:11-0400 Systolic blood pressure 110 mm[Hg] Sima Gonzalez PA-C Work Phone: [facility] 01-20-2022 09:35-0500 Body temperature 97.7 [degF] Dr. Fela Goldberg Work Phone: [facility] 01-20-2022 09:35-0500 Body weight 58.[address] Fela Goldberg Work Phone: [facility] 01-20-2022 09:35-0500 Diastolic blood pressure 70 mm[Hg] Dr. Fela Goldberg Work Phone: [facility] 01-20-2022 09:35-0500 Heart rate 61 /min Dr. Fela Goldberg Work Phone: [facility] 01-20-2022 09:35-0500 Respiratory rate 18 /min Dr. Fela Goldberg Work Phone: [facility] 01-20-2022 09:35-0500 SaO2% (BldA) [Mass fraction] 99 % Dr. Feal Goldberg Work Phone: [facility] 01-20-2022 09:35-0500 Systolic blood pressure 114 mm[Hg] Dr. Fela Goldberg Work Phone: [facility] 11-23-2021 13:40-0400 Body height 160.[address] Fela Goldberg Work Phone: [facility] 11-23-2021 13:40-0400 Body mass index (BMI) [Ratio] 22.6 kg/m2 Dr. Fela Goldberg Work Phone: [facility] 11-23-2021 13:40-0400 Body weight 58.[address] Fela Goldberg Work Phone: [facility] 11-23-2021 13:40-0400 Diastolic blood pressure 76 mm[Hg] Dr. Fela Goldberg Work Phone: [facility] 11-23-2021 13:40-0400 Systolic blood pressure 119 mm[Hg] Dr. Fela Goldberg Work Phone: [facility] 11-16-2021 12:59-0400 Body height 160.[address] Fela Goldberg Work Phone: [facility] Work Phone: 11-16-2021 12:59-0400 Body mass index (BMI) [Ratio] 22.4 kg/m2 Dr. Fela Goldberg Work Phone: [facility] 11-16-2021 12:59-0400 Body temperature 98.8 [degF] Dr. Fela Goldberg Work Phone: [facility] 11-16-2021 12:59-0400 Body weight 57.[address] Fela Goldberg Work Phone: [facility] 11-16-2021 12:59-0400 Diastolic blood pressure 80 mm[Hg] Dr. Fela Goldberg Work Phone: [facility] 11-16-2021 12:59-0400 Heart rate 97 /min Dr. Fela Goldberg Work Phone: [facility] 11-16-2021 12:59-0400 Respiratory rate 14 /min Dr. Fela Goldberg Work Phone: [facility] 11-16-2021 12:59-0400 SaO2% (BldA) [Mass fraction] 99 % Dr. Fela Goldberg Work Phone: [facility] 11-16-2021 12:59-0400 Systolic blood pressure 120 mm[Hg] Dr. Fela Goldberg Work Phone: [facility] Encounters Encounter Date Encounter Type Care Provider Facility Start: 08-23-2024 ambulatory [facility] Facili ty:[facility] Start: 08-23-2024 Non-patient / Non-visit Dr. Delroy LINDA -[facility] Start: 08-23-2024 End: 08-23-[address] Fela Goldberg MD Work Phone: [facility] Start: 08-23-2024 End: 08-23-2024 Patient encounter procedure Emmanuel Oakley MD -[facility] Work Phone: Start: 08-23-2024 End: 08-23-2024 ambulatory [facility] Facility:[facility] Start: 06-26-2024 End: 06-26-[address] Fela Goldberg MD Work Phone: [facility] Work Phone: Start: 06-26-2024 End: 06-26-[address] Fela Goldberg MD -Laboratory Specimen Work Phone: Start: 06-26-2024 End: 06-26-2024 ambulatory [facility] Facility:[facility] Start: 06-11-2024 End: 06-11-[address] Fela Goldberg MD Work Phone: [facility] Work Phone: Start: 06-11-2024 End: 06-11-[address] Fela Goldberg MD -Laboratory Work Phone: Start: 06-11-2024 End: 06-11-2024 ambulatory [facility] Facility:[facility] Start: 06-04-2024 End: 06-04-[address] Fela Goldberg MD -Laboratory Work Phone: Start: 06-04-2024 End: 06-04-2024 ambulatory [facility] Facility:[facility] Start: 03-10-2024 Encounter for genera l adult medical examination without abnormal findings [facility] Start: 02-20-2024 End: 02-20-[address] Fela Goldberg MD -[facility] Work Phone: Start: 02-20-2024 End: 02-20-[address] Fela Goldberg MD [facility] Start: 02-20-2024 End: 02-20-2024 ambulatory [facility] Facility:[facility] Start: 02-20-2024 End: 02-20-2024 ambulatory [facility] Facility:[facility] Start: 12-30-2023 End: 12-30-2023 ambulatory [facility] Facility:[facility] Start: 12-14-2023 End: 12-14-2023 ambulatory [facility] Facility:[facility] Start: 05-17-2023 End: 05-17-[address] Fela Goldberg Work Phone: [facility] Work Phone: Start: 05-17-2023 End: 05-17-[address] Fela Goldberg Work Phone: [facility] Work Phone: Start: 12-06-2022 End: 12-06-[address] Fela Goldberg Work Phone: [facility] Work Phone: Start: 12-06-2022 End: 12-06-[address] Fela Goldberg Work Phone: [facility]-Outpatient Breast Imaging Work Phone: Start: 12-01-2022 End: 12-01-[address] Fela Goldberg Work Phone: [facility] Work Phone: Start: 09-13-2022 End: 09-13-[address] Fela Goldberg Work Phone: [facility] Work Phone: Start: 05-26-2022 End: 05-26-2022 Patient encounter procedure Sima Gonzalez PA-C Work Phone: [facility] Comment on above: Olecranon bursitis o f left elbow (Primary Dx); Skin infection Start: 03-08-2022 End: 03-08-[address] Fela Goldberg Work Phone: [facility] Work Phone: Start: 03-08-2022 End: 03-08-[address] Fela Goldberg Work Phone: [facility] Ul[facility] Start: 03-05-2022 End: 03-05-[address] Fela Goldberg Work Phone: [facility] Work Phone: Start: 03-05-2022 End: 03-05-[address] Fela Goldberg Work Phone: [facility]-Outpatient Breast Imaging Start: 02-11-2022 End: 02-11-[address] Fela Goldberg Work Phone: [facility] Work Phone: Start: 02-11-2022 End: 02-11-[address] Fela Goldberg Work Phone: [facility] Start: 01-20-2022 End: 01-20-2022 Encounter for general adult medical examination without abnormal findings Dr. Fela Goldberg Work Phone: [facility] Start: 01-20-2022 End: 01-20-[address] Fela Goldberg Work Phone: [facility] Start: 11-23-2021 End: 11-23-[address] Fela Goldberg Work Phone: [facility] Start: 11-16-2021 End: 11-16-[address] Fela Goldberg Work Phone: [facility] Work Phone: Start: 11-16-2021 End: 11-16-[address] Fela Goldberg Work Phone: [facility] Start: 01-21-[address] Fela Goldberg Work Phone: [facility] Procedures Date Procedure Procedure Detail Performing Clinician Start: 08-23-2024 CT angiography of co ronary arteries Dr. Fela Goldberg MD Work Phone: Start: 06-26-2024 Measurement of occul t blood [...] Goldberg Work Phone: Start: 12-06-2022 Bilateral mammography D rSahra Goldberg Work Phone: Start: 12-06-2022 End: 12-06-[address] Fela Goldberg Work Phone: Start: 03-08-[address] Fela Goldberg Work Phone: Start: 03-05-2022 Screening mammography D rSahra Goldberg Work Phone: Start: 11-16-2021 Plain x-ray of hand Dr. Fela Goldberg Work Phone: Plan of Treatment Date Care Activity Detail Author Start: 05-17-2023 Patient referral [facility] Work Phone: Start: 03-14-2022 Urine microalbumin profile DTAP,TDAP,TD (2 - Td or Tdap) [facility] Start: 02-07-2022 DEPRESSION ASSESSMENT DEPRESSION ASSESSMENT [facility] Start: 03-21-2021 COVID-19 VACCINE (3 - Booster for Moderna series) COVID-19 VACCINE (3 - Booster for Moderna series) [facility] Start: 10-22-2020 COLOGUARD (FIT-DNA) COLOGUARD (FIT-DNA) [facility] Start: 10-22-[address] [facility] Start: 10-22-2020 COLORECTAL CANCER SCREENING COLORECTAL CANCER SCREENING [facility] Start: 10-22-[address] [facility] Start: 10-22-2020 DIABETES SCREEN DIABETES SCREEN [facility] Start: 10-22-2020 FECAL OCCULT BLOOD FECAL OCCULT BLOOD [facility] Start: 10-22-2020 LIPID SCREEN LIPID SCREEN [facility] Start: 10-22-[address] [facility] Start: 06-04-2020 HPV TESTING HPV TESTING [facility] Start: 06-04-2020 PAP TESTING PAP TESTING [facility] Start: [address] [facility] Start: 10-22-1993 HEPATITIS C SCREENING HEPATITIS C SCREENING [facility] Start: 1975 HEPATITIS B (1 of 3 - 3-dose series) HEPATITIS B (1 of 3 - 3-dose series) [facility] MG Breast - bilatera l Screening [facility] Patient referral [facility] Work Phone: Immunizations Immunization Date Immunization Notes Care Provider Fa jared 01-20-2022 influenza, injectabl e, quadrivalent, preservative free Dr. Fela Goldberg Work Phone: [facility] 01-20-2022 influenza, seasonal, injectable Dr. Fela Goldberg Work Phone: [facility] 05-24-2020 tetanus toxoid, redu mariposa diphtheria toxoid, and acellular pertussis vaccine, adsorbed Dr. Fela Goldberg Work Phone: [facility] 12-28-2019 influenza, injectable,quadrivalent , preservative free, pediatric Dr. Fela Goldberg Work Phone: [facility] 03-14-2012 tetanus toxoid, redu mariposa diphtheria toxoid, and acellular pertussis vaccine, adsorbed Sima Gonzalez PA-C Work Phone: [facility] Work Phone: Payers Date Payer Category Payer Unknown [id number] 2023 Self-pay [id number] 2022 Unknown [id number] 2022 Private Health Insurance [facility] [id number] 2022-Present [phone] [address] [place] [address] PPO [id number] 2016 Unknown [id number] Unknown [id number] Unknown [id number] 62 Unknown [id number] 2.16.840.1.204991.3.579.2.4 62 Unknown [id number] 2.16.840.1.048174.3.579.2.4 62 Unknown [id number] 2.16.840.1.070717.3.579.2.4 62 Unknown [id number] 2.16.840.1.742457.3.579.2.4 62 Unknown [id number] 2.16.840.1.537864.3.579.2.4 62 Unknown [id number] 2.16.840.1.727344.3.579.2.4 62 Unknown [id number] 2.16.840.1.941691.3.579.2.4 62 Unknown [id number] 2.16.840.1.661023.3.579.2.4 62 Unknown [id number] 2.16.840.1.593264.3.579.2.4 62 Social History Date Type Detail Facility Start: 11-16-2021 End: 05-17-2023 Tobacco smoking status SDIS Unknown if ever smoked [facility] Start: 1975 Sex Assigned At Female W [facility] Start: 05-17-2023 End: 08-23-2024 Tobacco smoking status NHIS Never smoked tobacco 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 Start: 1975 Sex Assigned At Not on file C [facility] Clinical Notes 12-10-2010 to 08-23-2024 Note Date & Type Note Facility 08-23-2024 Radiology Diagnostic study note [facility] Imaging Services [address] [place] [address] 08/23/24 1218 MR#: [id number] Acct: [id number] Name: CARINA LOPEZ Rep #:[id number] : 1975 48 From: Neeraj Frias MD PCP: Dr. Fela Goldberg MD Status:R EG CLI Y Location: CT Calcium Scoring Date of Study:: 08/23/24 Indications Indications: Hyperlipidemia family history Coronary Calcium Scoring: High-resolution Computed Tomographic imaging of the chest was performed on [08/23/2024], with particular attention paid to the coronary arteries. Images from the examination were analyzed for the presence and extent of coronary artery calcification , using coronary calcium quantification software. The patient tolerated the procedure well and there were no complications. The results of the coronary calcification analysis are provided below. Findings Coronary Artery Left Main (LM): 0 Left Anterior Descending (LAD): 0 Left Circumflex (LCX): 15.8 Right Coronary Artery (RCA): 0 Total Agatston Score: 15.8 Percentile Rankinth and 90th percentile Calcium Scoring Interpretation: Different methods to categorize the overall amount of coronary plaque. Overall amount CAC SIS Visual of coronary plaque P1 Mild -100 <2 1-2 vessels with mild amount of plaque P2 Moderate 101-300 3-4 1-2 vessels with moderate amount, 3 vessels with mild amount of plaque P3 Severe 301-999 5-7 3 vessels with moderate amount, 1 vessel with severe amount of plaque P4 Extensive >1000 >8 2-3 vessels with severe amount of plaque Calcium Score: Mild: 1-2 vessels w/mild amount of plaque Conclusion: Mild focal atherosclerotic plaquing noted 08/23/24 1219 Date __ _ Neeraj Frias MD Cosigner Signature (if applicable): Date ___ CC: Dr. Neeraj Frias MD; Dr. Fela Goldberg MD ~ Signed [facility] Work Phone: 08-23-2024 Evaluation note Diagnosis Onset Date Resolution Acute sinusitis acute August 7:29am [facility] Work Phone: 1(832) 504-382707-17-2025 Radiology Diagnostic study note [facility] Imaging Services [address] [place], [place] [id number] Limited Chest CT Cardiac Only MR#: [id number] Acct: [id number] Name: CARINA LOPEZ Rep #: [id number] : 1975 F 48 From: Jorge Fowler MD PCP: Dr. Fela Goldberg MD Status: R EG CLI Study:Limited Chest CT Cardiac Only Date of E xam: 08/23/24 Exam# [id number] Ordering Dr: Chrystal Goldberg MD PROCEDURE: LIMITED CHEST CT CARDIAC ONLY 08/23/2024 REASON FOR EXAM: SCREENING FOR CARDIOVASCULAR CONDITION TECHNIQUE: LIMITED CHEST CT CARDIAC ONLY CONTRAST: None One or more dose reduction techniques were used (e.g., Automated exposure control, adjustment of the mA and/or kV according to patient size, use of iterative reconstruction technique). RADIATION DOSE SUMMARY: CTDlvol: 12.19 mGy DLP: 219.42 mGycm COMPARISON: None FINDINGS: Coronary artery calcification. The heart is not enlarged. The lungs are clear. CT/Limited Chest CT Cardiac Only IMPRESSION: Coronary artery calcification. Reading Location: [place] [address] CC: Dr. Fela Goldberg MD ~ Communications Designer: Signed [facility]01-13-2025 Evaluation note* Diagnosis Onset Date Resolution Status Admit Date Preventative health care acute February 20, 2024 8:21am [facility] Work Phone: [phone]) 907-206904-19-2023 History of Present illness Narrative* Sima Gonzalez PA-C - 05/26/2022 6:21 PM EDT Images from the original note were not included. This note was created using [email or web address]. Subjective Carina Lopez is a 46 year [...] Hypertension Father Prostate Cancer Father 55 [place] 2009 Ovarian cancer Mother 60 BRCA negative, aggressive, [...] ER. Sima Gonzalez PA-C [facility] of Past illness Narrative* Problem Noted [...] of this encounter (statuses as of 05/27/2022) [facility] Diagnosis Onset Date Resolution Status Contusion of right hand, initial encounter acute [facility] Work Phone: Evaluation note* Diagnosis Onset Date Resolution Status Contusion of right hand, initial encounter acute Encounter for routine gynecological examination noneactive Preventative health care acu te [facility] Work Phone: Evaluation note* Diagnosis Onset Date Resolution Status Encounter for routine gynecological examination noneactive Preventative health care acu [facility] Work Phone: Evaluation note* Diagnosis Olecranon bursitis of left elbow- Primary Olecranon bursitis Skin infection Unspecified local infection of skin and subcutaneous tissue [facility] Diagnosis Onset Date Resolution Status Traveler's diarrhea acute Breast mass in female acute Encounter for routine gynecological examination noneactive [facility] Work Phone: Evaluation note* Diagnosis Onset Date Resolution Status Bunion, left acute [facility] Work Phone: Evaluation noteNo assessment information available [facility] Work Phone: Reason for referral (narrative)No reason for referral information [facility] Work Phone: Chief Complaint and Reason for Visit Chief Complaint RIGHT HAND INJURY Reason for Visit Contusion of right h and, initial encounter Chief Complaint RIGHT HAND INJURY Annual (HISTORIAN DRAMATIC ARTS) YEARLY EORDER Reason for Visit Contusion of right h and, initial encounter Encounter for routine gynecological examination Preventative health care Chief Complaint Annual (HISTORIAN DRAMATIC ARTS) YEARLY EORDER SCREENING ABNORMAL MAMMOGRAM Reason for Visit Encounter for routin e gynecological examination Preventative health care Chief Complaint DIARRHEA X5 DAYS Annual (HISTORIAN DRAMATIC ARTS) LUMP Reason for Visit Traveler's diarrhea Breast mass in female Encounter for routine gynecological examination Chief Complaint acute - possible bun ion or gout? left foot pain Reason for Visit Bunion, left Chief Complaint Admit Date YEARLY February 20, 2024 8 :21am E ORDER June 11, 2024 12:33p m Reason for Visit Admit Date Preventative health care February 19 8:21am Chief Complaint Admit Date E ORDER June 11, 2024 12:33p m Chief Complaint Admit Date E ORDER June 11, 2024 12:33p m E78.5 Hyperlipidemia, unspecified August 072024 6:54am CONCERN FOR SINUS INFECTION August 23 7:29am Chief Complaint Admit Date E ORDER June 11, 2024 12:33p m E78.5 Hyperlipidemia, unspecified August 072024 6:54am CONCERN FOR SINUS INFECTION August 23 7:29am E78.5 Hyperlipidemia, unspecified August 072024 12:18pm Reason for Visit Admit Date Acute sinusitis August 23, 2024 7:29 am Family History No Family History Records Found Relationship Condition Age at Onset Recorded Date/T talha father Hypertension Unknown Malignant neoplasm Unknown mother Malignant neoplasm Unknown Advance Directives No Advanced Directives Records Found Advance Directive Response Recorded Date/ Time Living Will No March 16 9:33am Power of Corn Picker No March 16, 2021 9:33am Advance Directive Response Recorded Date/ Time Living Will No March 16 8:33am Power of Corn Picker No March 16, 2021 8:33am Advance Directive Response Recorded Date/ Time Living Will No September 13, 2022 9:50am Power of Corn Picker No September 13 9:50am Advance Directive Response Recorded Date/ Time Living Will No September 13, 2022 9:50am Do you have a Healthcare Power of Corn Picker? No September 13, 2022 9:50am Summary Purpose [...] Dates Dr. Fela Goldberg MD Primary Care P gino, Attending Provider, Referring Provider Active Team Status: Inactive Member Role Status Dates Dr. Fela Goldberg MD Primary Care Provider, Refer ring Provider Active Aneta Guillermo CNM Attending Provider Active Team Status: Inactive Member Role Status Dates Dr. Fela Goldberg MD Primary Care Provider, Refer ring Provider Active Emmanuel BUTLER PA Attending Provider Active Team Status: Inactive Member Role Status Dates Dr. 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 Fela Goldberg MD Primary Care Provider, Refer ring Provider Active Casper BUTLER, PA Attending Provider Active Team Status: Inactive [...] June 26, 2024 End: June 26, 2024 Team Status: Active Member Role/Relationship Status Dates Dr. Fela Goldberg MD Primary Care Provider Active Team Status: Inactive Member Role/Relationship Status Dates Dr. Fela Goldberg MD Primary Care Provider Active Start: June 04, 2024 End: June 04, 2024 Dr. Fela Goldberg MD Attending Provider Active Start: June 04, 2024 End: June 04, 2024 Dr. Fela Goldberg MD Referring Provider Active Start: June 04, 2024 End: June 04, 2024 Team Status: Inactive Member Role/Relationship Status Dates Dr. Fela Goldberg MD Primary Care Provider Active Start: June 11, 2024 End: June 11, 2024 Dr. Fela Goldberg MD Attending Provider Active Start: June 11, 2024 End: June 11, 2024 Dr. Fela Goldberg MD Referring Provider Active Start: June 11, 2024 End: June 11, 2024 Team Status: Inactive Member Role/Relationship Status Dates Dr. Fela Goldberg MD Primary Care Provider Active Start: June 26, 2024 End: June 26, 2024 Dr. Fela Goldberg MD Attending Provider Active Start: June 26, 2024 End: June 26, 2024 Dr. Fela Goldberg MD Referring Provider Active Start: June 26, 2024 End: June 26, 2024 Team Status: Active Member Role/Relationship Status Dates Dr. Fela Goldberg MD Primary Care Provider Active Start: August 23, 2024 Dr. Fela Goldberg MD Attending Provider Active Start: August 23, 2024 Dr. Fela Goldberg MD Referring Provider Active Start: August 23, 2024 Team Status: Inactive Member Role/Relationship Status Dates Dr. Fela Goldberg MD Primary Care Provider Active Start: August 23, 2024 End: August 23, 2024 Dr. Fela Goldberg MD Referring Provider Active Start: August 23, 2024 End: August 23, 2024 CARRIE Gonzalez Attending Provider Active Sta rt: August 23, 2024 End: August 23, 2024 Team Status: Inactive Member Role/Relationship Status Dates Dr. Fela Goldberg MD Primary Care Provider Active Start: August 23, 2024 End: August 23, 2024 Dr. Fela Goldberg MD Attending Provider Active Start: August 23, 2024 End: August 23, 2024 Dr. Fela Goldberg MD Referring Provider Active Start: August 23, 2024 End: August 23, 2024 Team Status: Active Member Role/Relationship Status Dates Dr. Fela Goldberg MD Primary Care Provider Active Start: August 23, 2024 Dr. Fela Goldberg MD Referring Provider Active Start: August 23, 2024 Dr. Fela Goldberg MD Other Provider Active Start: August 23, 2024 Dr. Neeraj Frias MD Attending Provider Active S tart: August 23, 2024 Source Comments (unrecognize d section and content) In the event this informatio n is protected by the Federal Confidentiality of Alcohol and Drug Abuse Patient Records regulations: The Federal rules restrict any use of the information to criminally investigate or prosecute any alcohol or drug abuse patient.[facility] Reason for Visit (unrecogniz ed section and content) Reason Comments Derm Problem Insect bite L elbow, now infected x1 week INFORMATION SOURCE (unrecogn ized section and content) DATE CREATED AUTHOR 09/15/2024 [facility] FOR RECORDS PERTAINING TO PATIENTS WHO ARE [...] BE BASED ON THE PRIMARY CLINICAL RECORDS. [employer] provides no warranty or guarantee of the accuracy or completeness of information in this document.
[2024-10-06 09:48] LABS: Hematocrit 38.2 % (37-47); Hemoglobin 12.9 g/dL (12.0-15.0); Immature Granulocytes Count 0.010 X10^3/uL (0.0-0.0); Mean Corp Hgb Conc 33.8 g/dL (32-36); Mean Corpuscular Volume 94.1 fL (81-99); Mean Platelet Vol. 9.6 fl (6.2-12.0); NRBC Flagged by Analyzer 0 % (0-5); Platelet Count 292 K/mm3 (150-450); RBC Distribution Width CV 12.2 % (11.6-14.6); RBC Distribution Width SD 42.5 fl (35.1-43.9); Red Blood Count 4.06 M/mm3 (4.2-5.4); White Blood Count 5.0 K/mm3 (4.4-11.0)
[2024-10-06 10:25] LABS: Ferritin 62 ng/mL (22-378); Iron 176 ug/dL (50-170); Iron Binding Capacity,Unsat 56 ug/dL (228-428)
[2024-10-06 10:52] LABS: Iron Binding Capacity,Total 232 ug/dL (250-450)
== END | disposition home or self-care (01) ==
LOC: LAB 08:56
PROVIDERS: PCP Internal Medicine; Referring Provider Internal Medicine; Visit Provider Internal Medicine
DX: D64.9 Anemia, unspecified (principal)
CPT/HCPCS: 36415; 82728; 83540; 83550; 85025

== ENCOUNTER → 2024-10-29 | Outpatient (CLI) | payer OTHER, SELFPAY ==
--- NOTE | 2024-10-29 13:16 | RAD_ITS ---
PROCEDURE: ANKLE MIN 3 VIEWS 10/29/2024 REASON FOR EXAM: RIGHT ANKLE INJURY TECHNIQUE: Procedure Code: RADANK Modality: DX Procedure: ANKLE MIN 3 VIEWS Laterality: Right COMPARISON: None. FINDINGS: Bones: No acute bony abnormalities. Joints: No dislocations. Soft tissues: No soft tissue abnormalities. RAD/Ankle min 3 Views IMPRESSION: No acute bony abnormalities. Reading Location: [id number]
== END | disposition home or self-care (01) ==
LOC: MTRAD 13:16
PROVIDERS: PCP Internal Medicine; Referring Provider Physician Assistant; Visit Provider Physician Assistant
DX: M25.571 Pain in right ankle and joints of right foot (principal)
CPT/HCPCS: 73610

== ENCOUNTER → 2025-01-28 | Outpatient (CLI) | payer OTHER, SELFPAY ==
--- OUTSIDE RECORDS SUMMARY | 2025-01-28 19:49 | XMS RPT_ITS | CCD ---
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 Fela Goldberg Primary [...] [phone] Carina Fenton DO Primary Care Provider [phone] Dr. Fela Goldberg Primary Care Provider [phone] Altagracia LINDA, Dr. Pickard Attending Provider [phone]) Yusuf LINDA, Dr. Chahal Primary Care Provider Yusuf LINDA, Dr. Chahal Attending Provider [phone]) Yusuf LINDA, Dr. Chahal Referring Provider 1([phone]) Yusuf LINDA, Dr. Chahal Primary Care Physician Yusuf LINDA, Dr. Chahal Attending Physician [phone]) Yusuf LINDA, Dr. Chahal Referring Provider 1(33 0) Emmanuel Mancuso Attending Physician Yusuf LINDA, Dr. Chahal Nurse Practitioner 1(33 0) Altagracia LINDA, Dr. Pickard Attending Physician Casper Resendiz Attending Physician [phone] Casper Resendiz Referring Provider Oleghe, Efewongbe Primary Care Unavailable Oleghe, Efewongbe Referring Unavailable Oleghe, Efewongbe Attending Unavailable Oleghe, Efewongbe Attending Unavailable Oleghe, Efewongbe Referring Unavailable Oleghe, Efewongbe Primary Care Unavailable CherylemanSelena Referring Unavailable BarkmanSelena Attending Unavailable Oleghe, Efewongbe Primary Care Unavailable Oleghe, Efewongbe Attending Unavailable Oleghe, Efewongbe Primary Care Unavailable Oleghe, Efewongbe Referring Unavailable Oleghe, Efewongbe Referring Unavailable Emmanuel Mancuso Attending Unavailable Oleghe, Efewongbe Primary Care Unavailable Selena Haile Attending Unavailable Oleghe, Efewongbe Primary Care Unavailable Oleghe, Efewongbe Referring Unavailable Oleghe, Efewongbe Consulting Unavailable Oleghe, Efewongbe Primary Care Unavailable Oleghe, Efewongbe Referring Unavailable Neeraj Frias Attending Unavailable Oleghe, Efewongbe Primary Care Unavailable Oleghe, Efewongbe Referring Unavailable Casper Resendiz Attending Unavailable Oleghe, Efewongbe Primary Care Unavailable Oleghe, Efewongbe Referring Unavailable Oleghe, Efewongbe Attending Unavailable Oleghe, Efewongbe Primary Care Unavailable Casper Resendiz Referring Unavailable Casper Resendiz Attending Unavailable Oleghe, Efewongbe Primary Care Unavailable Selena Haile Referring Unavailable Selena Haile Attending Unavailable Oleghe, Efewongbe Primary Care Unavailable Oleghe, Efewongbe Referring Unavailable Oleghe, Efewongbe Attending Unavailable Oleghe, Efewongbe Primary Care Unavailable Oleghe, Efewongbe Referring Unavailable Oleghe, Efewongbe Attending Unavailable Oleghe, Efewongbe Primary Care Unavailable Oleghe, Efewongbe Referring Unavailable Oleghe, Efewongbe Attending Unavailable Medications Current Medications Medication Drug [...] hay th twice daily for 7 days. Multivitamin (One Daily Multivitamin) tablet (12 sources) Start: 01-20-2022 take 1 tablet by mouth once daily Start: 01-20-2022 take 1 tablet by hay th once daily Multivitamin (One Daily Multivitamin) tablet Active 1 {tbl} PO DAILY January 20, 2022 1:00am Start: 12-14-2022 take 1 tablet by hay th once daily Multivitamin (One Daily Multivitamin) tablet Active 1 TABLET PO DAILY January 20, 2022 1:00am Start: 01-20-2022 take 1 tablet by hay th once daily Multivitamin (One Daily Multivitamin) tablet Active 1 TABLET PO DAILY January 20, 2022 12:00am psyllium 3400 mg powder for oral suspension (12 sources) Start: 11-23-2021 Start: 11-23-2021 Psyllium Husk (Metamucil) 3.4 gram/5.4 gram powder Active 1 tbsp PO DAILY November 23, 2021 12:00am mix into at least 8 oz of water or juice before administering Completed/Discontinued Medications Medication Drug Class(es) Dates Sig (Normalized) Sig (Original) amoxicillin 875 mg / clavulanate 125 mg oral tablet (5 sources) Penicillin-class Antibacterial Start: 08-23-2024 End: 09-02-2024 Amoxicillin-Pot Clavulanate 875-125 mg tablet Discontinued 1 {tbl} PO Q12H 20 10 0 August 23, 2024 12:00am September 01, 2024 12:00am September 02, 2024 12:08am Acute sinusitis, unspecified atorvastatin 20 mg oral tablet (20 sources) [...] on above: Take 1 capsule by mo [facility] three times daily as needed for Cough. calcium carbonate 1500 mg oral tablet (12 sources) Start: 01-20-2022 End: 12-01-2022 take 1 [...] by mouth. ciprofloxacin 500 mg oral tablet (9 sources) Quinolone Antimicrobial Start: 09-13-2022 End: 12-01-2022 take 1 tablet by mouth twice daily Ciprofloxacin Hcl (Cipro) 500 mg tablet Discontinued 500 mg PO TWICE A DAY 6 September 13, 2022 12:00am December 01, 2022 10:56am ferrous sulfate 325 mg oral tablet (6 sources) Start: 06-14-2024 End: 10-29-2024 take 1 tablet by mouth once daily Ferrous Sulfate 325 mg (65 mg iron) tablet Discontinued 325 mg PO daily June 14, 2024 12:00am October 29, 2024 1:27pm Vfecnmyscnqq-Ei-Xnn n-Minerals (Women's Daily Multivitamin) 18-0.4 mg Tablet (13 sources) Start: 03-16-2021 End: 11-16-2021 Mwoqohbecgms-Le-Oa on-Minerals (Women's Daily Multivitamin) 18-0.4 mg Tablet Discontinued 1 {tbl} PO DAILY March 16, 2021 1:00am November 16, 2021 1:05pm Start: 03-16-2021 End: 11-16-2021 take 1 tablet by mouth once daily Pdslpnajzwko-Db-Ymxz-Minerals (Women's D aily Multivitamin) 18-0.4 mg Tablet Discontinued 1 TABLET PO DAILY March 16, 2021 12:00am November 16, 2021 12:05pm Start: 03-16-2021 End: 11-16-2021 take 1 tablet by mouth once daily Cdrmjkdvnico-Zl-Afew-Minerals (Women's D aily Multivitamin) 18-0.4 mg Tablet Discontinued 1 TABLET PO DAILY March 16, 2021 1:00am November 16, 2021 1:05pm Problems Active Problems Problem Classification Problem Date Documented Date Episodic/Chronic Acquired foot deformities (9 sources) Bunion; Translations: [Bunion of left foot] 04-09-2024 Episodic Deficiency and other anemia (7 sources) Anemia; Translations: [Anemia, unspecified] 02-20-2024 Episodic Deficiency and other anemia (1 source) Anemia, unspecified; Translations: [Anemia, unspecified] Onset: 10-11-2024 Episodic Disorders of lipid metabolism (15 sources) Hyperlipidemia; Translations: [Hyperlipidemia, unspecified] Onset: 09-13-2024 03-16-2021 Chronic Comment on above: ON MED Diverticulosis and diverticulitis (12 sources) Diverticular disease; Translations: [Diverticulosis of intestine, part unspecified, without perforation or abscess without bleeding] 11-23-2021 Chronic Intestinal infection (10 sources) Traveler's diarrhea; Translations: [Infectious gastroenteritis and colitis, unspecified] 09-13-2022 Episodic Nonmalignant breast conditions (10 sources) Breast lump; Translations: [Unspecified lump in unspecified breast] 12-01-2022 Episodic Comment on above: diagnostic mammogram Other connective tissue disease (1 source) Bursitis of olecranon of left elbow; Translations: [Olecranon bursitis, left elbow] Episodic Other non-traumatic joint disorders (1 source) Pain in right ankle and joints of right foot; Translations: [Pain in right ankle and joints of right foot] Onset: 11-10-2024 Episodic Other screening for suspected conditions (not mental disorders or infectious disease) (15 sources) Patient encounter status; Translations: [Encounter for screening for malignant neoplasm of colon] Onset: 01-26-2024 01-21-2021 Episodic Residual codes; unclassified (13 sources) Family history of malignant neoplasm of ovary; Translations: [Family history of malignant neoplasm of ovary] 2020 Episodic Comment on above: Negative EMPOWER misa tMother dec age 65 ovarian cancer Skin and subcutaneous tissue infections (1 source) Infection of skin; Translations: [Local infection of the skin and subcutaneous tissue, unspecified] Episodic Superficial injury; contusion (19 sources) Contusion of hand; Translations: [Contusion of right hand, initial encounter] Episodic Past or Other Problems Problem Classification Problem Date Documented Da te Episodic/Chronic Other upper respiratory infections (9 sources) Acute sinusitis; Translations: [Acute sinusitis, unspecified] Onset: 08-23-2024 08-23-2024 Episodic Results Test Name Value Interpretation Reference Range Facility Ankle min 3 Viewson 10-30-19 Ankle min 3 Views [facility] Imaging Services [address] [place], [place] [id number] Ankle min 3 Views MR#: [id number] Acct: [id number] Name: CARINA LOPEZ Rep #: [id number] : 1975 F 49 From: Elena Moon MD PCP: Dr. Fela Goldberg MD Status: REG CLI Study: Ankle min 3 Views Date of Exam: 10/29/24 Exam# [id number] Ordering Dr: Casper Camacho PA PROCEDURE: ANKLE MIN 3 VIEWS 10/29/2024 REASON FOR EXAM: RIGHT ANKLE INJURY TECHNIQUE: Procedure Code: RADANK Modality: DX Procedure: ANKLE MIN 3 VIEWS Laterality: Right COMPARISON: None. FINDINGS: Bones: No acute bony abnormalities. Joints: No dislocations. Soft tissues: No soft tissue abnormalities. RAD/Ankle min 3 Views IMPRESSION: No acute bony abnormalities. Reading Location: [facility] CC: Dr. 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 Normal [facility] Urgent Care Visit Reporton 0 10-29-2024 Urgent Care Visit Report [facility] [address], [address] [place] [address] OFFICE VISIT Date of Service: 10/29/24 MR#: [id number] Acct: [id number] Name: CARINA LOPEZ Rep #: [id number] : 1975 Provider: CARRIE Chang Age/Sex: 49/F Location: [facility] Status: Signed Intake Vital Signs 08/23/24 07:24 10/29/24 13:27 Height 5 ft 5 in 5 ft 5 in Weight: 132 lb 6 oz BMI 22.0 Body Surface Area 98.3 BP 110/62 114/62 Blood Pressure Location Lt brachial Lt brachial Position Sitting Sitting Respiration 15 Pulse 69 67 Pulse Source NIBP Monitor Temp 98.4 F Temp Source Oral Oral Pulse Oximetry (%) 98 98 Oxygen Delivery Method room air room air Intake Visit Reasons: R ANKLE PAIN / HIT BY GOLF BALL X 2WKS AGO Chief Complaint: ankle pain Accompanied by: Self Allergies No Known Allergies Allergy (Verified 10/29/24 13:12) Medications ???Medication ???Instructions ???Recorded ???Confirmed ???Type psyllium husk 3.4 gram/5.4 gram 1 tbsp PO DAILY 11/23/21 10/29/24 History oral powder (Metamucil) multivitamin (One Daily 1 tab PO DAILY 01/20/22 10/29/24 H istory Multivitamin tablet) atorvastatin 20 mg tablet 20 mg PO DAILY #90 TABLETS 5 10/29/24 Rx Nurse's Note: Right ankle was hit with a golf ball. Inside of ankle. X 2 weeks ago. 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 No locking or giving way with pain aggravated touch with prolonged weightbearing, alleviated with sit/rest. No zfxp-dkx-puffmwd medications taken to assist. PMH NC. No other associated symptoms and no other alleviating/aggrava ting factors. ROS Const Constitutional: No other (As above) Exam Const General: cooperative, healthy appearing and no acute distress Nutritional Appearance: average body habitus Orientation: alert and awake Resp Effort Inspection: normal respiratory effort and able to speak in complete sentences Cardio Rate: regular rate Rhythm: regular rhythm Pulses: radial pulses present Skin General: no rashes or lesions noted Neuro General: patient alert and patient awake Cognition: normal cognition Speech: speech normal Gait: normal gait Extrem General: normal to inspection (Right medial ankle complaint tender to palpation, suspect swelling) Psych Appearance: grossly normal Mental Status: mental status grossly normal Mood: congruent mood Affect: normal affect Speech and Movement: speech and movement normal Attitude: cooperative Coding Level of Care Code Off vis,est,level 4 Diagnoses Contusion of right ankle S90.01XA Assessment and Plan Assessment and Plan (1) Contusion of right ankle: Status: Acute Plan: Right ankle radiographs reveal no acute osseous pathology per my review, pending radiologist interpretation at the time patient discharge. Rest, ice, elevate, NSAIDs as needed for symptomatic relief. Follow-up with PCP in several days should symptoms persist, sooner should symptoms only worsen or any other concerns develop. Patient states acknowledging understanding all the above. This note was generated with [employer] Intake dictation software. It may contain incorrect words, spelling, and punctuation that were not noted in checking the note before signing. Orders: Orders Ankle min 3 Views Today M25.571 - Pain in right ankle and joints of right foot 10/29/24 1605 Date Casper Prater Signature: Date (if applicable) CC: Normal [facility] Absolute lymphocyte countOrd ered By: Fela Goldberg on 10-06-2024 Lymphocytes Auto (Unsp spec) [#/Vol] 1.59 10*3/uL 0.83-4.51 [facility] Absolute neutrophil countOrd ered By: Fela Goldberg on 10-06-2024 Neutrophils (Bld) [#/Vol] 2.8 10*3/uL 2.0-7.7 [facility] Automated lymphocyte count a s percentage of total leukocytesOrdered By: Fela Goldberg on 10-06-2024 Lymphocytes/100 WBC Auto (Unsp spec) 31.8 % 19-41 [facility] Basophil percentageOrdered B y: Fela Goldberg on 10-06-2024 Basophils/100 WBC (Bld) 0.8 % 0-1 [facility] CBC W/Diff, Automatedon 09-09-2024 Absolute Lymph 1.59 X10 3/uL Normal 0.83-4.51 [facility] Comment on above: Performed By: #### L 100.0100, L503.6550, L503.6030 ####[facility] [address] [place], [address] Absolute Neut 2.8 X10 3/uL Normal 2.0-7.7 [facility] Comment on above: Performed By: #### L 100.0100, L503.6550, L503.6030 ####[facility] [address] [place], [address] Basophils/100 WBC (Bld) 0.8 % Normal 0-1 [facility] Comment on above: Performed By: #### L 100.0100, L503.6550, L503.6030 ####[facility] [address] [place], [address] Eosinophils/100 WBC (Bld) 2.0 % Normal 0-5 [facility] Comment on above: Performed By: #### L 100.0100, L503.6550, L503.6030 ####[facility] [address] [place], [address] Erythrocyte distribution width (RBC) [Ratio] 12.2 % Normal 11.6-14.6 [facility] Comment on above: Performed By: #### L 100.0100, L503.6550, L503.6030 ####[facility] [address] [place], [address] Hematocrit (Bld) [Volume fraction] 38.2 % Normal 37-47 [facility] Comment on above: Performed By: #### L 100.0100, L503.6550, L503.6030 ####[facility] [address] [place], [address] Hemoglobin (Bld) [Mass/Vol] 12.9 g/dL Normal 12.0-15.0 [facility] Comment on above: Performed By: #### L 100.0100, L503.6550, L503.6030 ####[facility] [address] [place], [address] IG% 0.200 Normal 0.0-0.9 [facility] Comment on above: Result Comment: IG% - Immature Granulocytes (promyelocytes, myelocytes and metamyelocytes) > 1% indicates that a LEFT SHIFT is Present. Performed By: #### L 100.0100, L503.6550, L503.6030 ####[facility] [address] [place], [address] Lymphocytes/100 WBC (Bld) 31.8 % Normal 19-41 [facility] Comment on above: Performed By: #### L 100.0100, L503.6550, L503.6030 ####[facility] [address] [place], [address] MCH (RBC) [Entitic mass] 31.8 pg Normal 27.0-32.0 [facility] Comment on above: Performed By: #### L 100.0100, L503.6550, L503.6030 ####[facility] [address] [place], [address] MCHC (RBC) [Mass/Vol] 33.8 g/dL Normal 32-36 [facility] Comment on above: Performed By: #### L 100.0100, L503.6550, L503.6030 ####[facility] [address] [place], [address] MCV (RBC) [Entitic vol] 94.1 fL Normal 81-99 [facility] Comment on above: Performed By: #### L 100.0100, L503.6550, L503.6030 ####[facility] [address] [place], [address] Monocytes/100 WBC (Bld) 8.8 % Normal 0-10 [facility] Comment on above: Performed By: #### L 100.0100, L503.6550, L503.6030 ####[facility] [address] [place], [address] Neutrophils/100 WBC (Bld) 56.4 % Normal 47-70 [facility] Comment on above: Performed By: #### L 100.0100, L503.6550, L503.6030 ####[facility] [address] [place], [address] Nucleated RBC (Bld) [#/Vol] 0 10*3/uL Normal 0-5 [facility] Comment on above: Performed By: #### L 100.0100, L503.6550, L503.6030 ####[facility] [address] [place], [address] Platelet mean volume (Bld) [Entitic vol] 9.6 fL Normal 6.2-12.0 [facility] Comment on above: Performed By: #### L 100.0100, L503.6550, L503.6030 ####[facility] [address] [place], [address] Platelets (Bld) [#/Vol] 292 10*3/uL Normal 150-450 [facility] Comment on above: Performed By: #### L 100.0100, L503.6550, L503.6030 ####[facility] [address] [place], [address] RBC (Bld) [#/Vol] 4.06 10*6/uL Low 4.2-5.4 [facility] Comment on above: Performed By: #### L 100.0100, L503.6550, L503.6030 ####[facility] [address] [place], [address] RDW SD 42.5 fl Normal 35.1-43.9 [facility] Comment on above: Performed By: #### L 100.0100, L503.6550, L503.6030 ####[facility] [address] [place], [address] WBC (Bld) [#/Vol] 5.0 10*3/uL Normal 4.4-11.0 [facility] Comment on above: Performed By: #### L 100.0100, L503.6550, L503.6030 ####[facility] [address] [place], [address] Eosinophil percentageOrdered By: Kaylahewongbe Oleghe on 10-06-2024 Eosinophils/100 WBC (Bld) 2.0 % 0-5 [facility] Erythrocyte distribution wid th ratioOrdered By: Efewongbe Oleghe on 10-06-2024 Erythrocyte distribution width (RBC) [Ratio] 12.2 % 11.6-14.6 [facility] Erythrocyte distribution wid th standard deviationOrdered By: Efewongbe Oleghe on 10-06-2024 Erythrocyte distribution width (RBC) [Ratio] 42.5 fl 35.1-43.9 [facility] Ferritinon 10-06-2024 Ferritin [Mass/Vol] 62 ng/mL Normal 22-378 [facility] Comment on above: Performed By: #### L 100.0100, L503.6550, L503.6030 ####[facility] [address] [place], [place], [address] Hematocrit Auto (Bld) [Volum e fraction]Ordered By: Fela Goldberg on 10-06-2024 Hematocrit (Bld) [Volume fraction] 38.2 % 37-47 [facility] Hemoglobin measurementOrdere d By: Fela Goldberg on 10-06-2024 Hemoglobin (Bld) [Mass/Vol] 12.9 g/dL 12.0-15.0 [facility] Immature granulocytes/100 WB C Auto (Bld)Ordered By: mau Goldberg on 10-06-2024 Immature granulocytes/100 WBC (Bld) 0.200 % 0.0-0.9 [facility] Comment on above: IG% - Immature Granu locytes (promyelocytes, myelocytes and metamyelocytes) > 1% indicates that a LEFT SHIFT is Present. Iron measurement (mass/mass) Ordered By: Fela Goldberg on 10-06-2024 Iron (Unsp spec) [Mass/Mass] 176 ug/dL High 50-170 [facility] Iron+Iron Binding Capacityon 10-06-2024 TIBC 232 ug/dL Low 250-450 [facility] Comment on above: Performed By: #### L 100.0100, L503.6550, L503.6030 ####[facility] [address] [place], [place], [address] MCV (mean corpuscular volume ) determinationOrdered By: Fela Goldberg on 10-06-2024 MCV (RBC) [Entitic vol] 94.1 fL 81-99 [facility] Mean corpuscular hemoglobin (MCH) determinationOrdered By: Fela Goldberg on 10-06-2024 MCH (RBC) [Entitic mass] 31.8 pg 27.0-32.0 [facility] Mean corpuscular hemoglobin concentration (MCHC) determinationOrdered By: Fela Goldberg on 10-06-2024 MCHC (RBC) [Mass/Vol] 33.8 g/dL 32-36 [facility] Mean platelet volume determi nationOrdered By: Kaylahbrendamichelefrain Hinojosabrittanychrystal on 10-06-2024 Platelet mean volume (Bld) [Entitic vol] 9.6 fL 6.2-12.0 [facility] Monocyte percentageOrdered B y: Efbrendaongefrain Hinojosabrittanye on 10-06-2024 Monocytes/100 WBC (Bld) 8.8 % 0-10 [facility] Neutrophil percentageOrdered By: Efbrendaongefrain Hinojosabrittanye on 10-06-2024 Neutrophils/100 WBC (Bld) 56.4 % 47-70 [facility] No Panel InformationOrdered By: Fela Goldberg on 10-06-2024 Unsaturated Iron Binding Capacity 56 ug/dL Low 228-428 [facility] Nucleated red blood cell per centageOrdered By: Fela Goldberg on 10-06-2024 Nucleated RBC/100 WBC (Bld) [Ratio] 0 % 0-5 [facility] Platelet countOrdered By: Ef brendajean Goldberg on 10-06-2024 Platelets (Bld) [#/Vol] 292 10*3/uL 150-450 [facility] RBC Auto (Bld) [#/Vol]Ordere d By: Abebamichelefrain Hinojosabrittanychrystal on 10-06-2024 RBC (Bld) [#/Vol] 4.06 10*6/uL Low 4.2-5.4 [facility] Serum or plasma ferritin avtar surement (mass/volume)Ordered By: Fela Goldberg on 10-06-2024 Ferritin [Mass/Vol] 62 ng/mL 22-378 [facility] Serum or plasma iron saturat ion measurement (mass fraction)Ordered By: Fela Goldberg on 10-06-2024 Iron saturation [Mass fraction] 75.9 % High 13-59 [facility] Comment on above: Previous reported re sult: 76.0 %Edited by: MISAEL on 10/06/24:1052 AMENDED REPORT 10/06/24 1052 IRON SATURATION previously reported as: 76.0 H % White blood cell (WBC) count Ordered By: Fela Goldberg on 10-06-2024 WBC (Bld) [#/Vol] 5.0 10*3/uL 4.4-11.0 [facility] Coronary Angiography CTon Coronary Angiography CT [facility] Imaging Services [address] [place] [address] 08/23/24 1218 MR#: [id number] Acct: [id number] Name: CARINA LOPEZ Rep #: [id number] : 1975 48 From: Neeraj Frias MD [...] MD; Dr. Fela Goldberg MD Signed Normal [facility] Limited Chest CT Cardiac Onl yon 08-23-[address] Cardiac Only [facility] Imaging Services [address] [place], [place] [address] Limited Chest CT Cardiac Only MR#: [id number] Acct: [id number] Name: CARINA LOPEZ Rep #: [id number] : 1975 F 48 From: Bryan chung MD PCP: Dr. Fela Goldberg MD Status: [facility] CL Study: Limited Chest CT Cardiac Only Date of Exam: Exam# [id number] Ordering Dr: Fela Goldberg MD PROCEDURE: LIMITED [...] Only IMPRESSION: Coronary artery calcification. Reading Location: [facility] CC: Dr. 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 Normal [facility] Urgent Care Visit Reporton 0 08-23-2024 Urgent Care Visit Report [facility] [address], [address] [place] [address] OFFICE VISIT Date of Service: 08/23/24 MR#: [id number] Acct: [id number] Name: CARINA LOPEZ Rep #: [id number] : 1975 Provider: CARRIE Verde Age/Sex: 48/F Location: [facility] Status: Signed Intake Vital Signs 02/20/24 08:26 08/23/24 07:24 Height 5 ft 5 in 5 ft 5 in BP 110/62 Blood Pressure Location Lt brachial Position Sitting Respiration 15 Pulse 69 Pulse Source NIBP Temp 98.4 F Temp Source Oral Pulse Oximetry (%) 98 Oxygen Delivery Method room air Intake Visit Reasons: CONCERN FOR SINUS INFECTION Chief Complaint: cough, congest, drainage, mucus, [employer] Required: No Is patient in pain?: No [...] Code Off vis,est,level 3 Diagnoses Acute sinusitis J0190 Assessment and Plan Assessment and Plan (1) [...] Prater Signature: Date (if applicable) CC: Normal [facility] Stool Occult Blood iFOBon STOB Negative Normal [facility] Comment on above: Performed By: #### M 100.7900 #### [facility] [address] [place], [place], [id number] Stool gastrointestinal hemog lobin detection by immunologic methodOrdered By: Fela Goldberg on 06-26-2024 Lower GI hemoglobin IA Ql (Stl) [facility] Ferritinon 06-11-2024 Ferritin [Mass/Vol] 11 ng/mL Low 22-378 [facility] Comment on above: Performed By: #### L 503.6550, L503.6030 ####[facility] [address] [place], [address] Iron measurement (mass/mass) Ordered By: Fela Goldberg on 06-11-2024 Iron (Unsp spec) [Mass/Mass] 23 ug/dL Low 50-170 [facility] Iron+Iron Binding Capacityon 06-11-2024 Iron [Mass/Vol] 23 ug/dL Low 50-170 [facility] Comment on above: Performed By: #### L 503.6550, L503.6030 ####[facility] [address] [place], [place], [id number] UIBC 293 ug/dL Normal 228-428 [facility] Comment on above: Performed By: #### L 503.6550, L503.6030 ####[facility] [address] [place], [place], [id number] No Panel InformationOrdered By: Fela Goldberg on 06-11-2024 Unsaturated Iron Binding Capacity 293 ug/dL 228-428 [facility] Serum or plasma ferritin avtar surement (mass/volume)Ordered By: Fela Goldberg on 06-11-2024 Ferritin [Mass/Vol] 11 ng/mL Low 22-378 [facility] Serum or plasma iron saturat ion measurement (mass fraction)Ordered By: Fela Goldberg on 06-11-2024 Iron saturation [Mass fraction] 7.3 % Low 13-59 [facility] Comment on above: Previous reported re sult: 7.0 %Edited by: LESLIE on 06/11/24:1458 AMENDED REPORT 06/11/24 1458 IRON SATURATION previously reported as: 7.0 L % Absolute lymphocyte countOrd ered By: Fela Goldberg on 06-04-2024 Lymphocytes Auto (Unsp spec) [#/Vol] 1.64 10*3/uL 0.83-4.51 [facility] Absolute neutrophil countOrd ered By: mau Goldberg on 06-04-2024 Neutrophils (Bld) [#/Vol] 6.8 10*3/uL 2.0-7.7 [facility] Automated lymphocyte count a s percentage of total leukocytesOrdered By: Fela Goldberg on 06-04-2024 Lymphocytes/100 WBC Auto (Unsp spec) 17.9 % Low 19-41 [facility] Basophil percentageOrdered B y: Fela Goldberg on 06-04-2024 Basophils/100 WBC (Bld) 0.7 % 0-1 [facility] CBC W/Diff, Automatedon 05-09 Absolute Lymph 1.64 X10 3/uL Normal 0.83-4.51 [facility] Comment on above: Performed By: #### L 100.0100 ####[facility] [address] [place], [address] Absolute Neut 6.8 X10 3/uL Normal 2.0-7.7 [facility] Comment on above: Performed By: #### L 100.0100 ####[facility] [address] [place], [address] Basophils/100 WBC (Bld) 0.7 % Normal 0-1 [facility] Comment on above: Performed By: #### L 100.0100 ####[facility] [address] [place], [address] Eosinophils/100 WBC (Bld) 1.0 % Normal 0-5 [facility] Comment on above: Performed By: #### L 100.0100 ####[facility] [address] [place], [address] Erythrocyte distribution width (RBC) [Ratio] 14.2 % Normal 11.6-14.6 [facility] Comment on above: Performed By: #### L 100.0100 ####[facility] [address] [place], [address] Hematocrit (Bld) [Volume fraction] 35.0 % Low 37-47 [facility] Comment on above: Performed By: #### L 100.0100 ####[facility] [address] [place], [address] Hemoglobin (Bld) [Mass/Vol] 11.5 g/dL Low 12.0-15.0 [facility] Comment on above: Performed By: #### L 100.0100 ####[facility] [address] [place], [address] IG% 0.200 Normal 0.0-0.9 [facility] Comment on above: Result Comment: IG% - Immature Granulocytes (promyelocytes, myelocytes and metamyelocytes) > 1% indicates that a LEFT SHIFT is Present. Performed By: #### L 100.0100 ####[facility] [address] [place], [address] Lymphocytes/100 WBC (Bld) 17.9 % Low 19-41 [facility] Comment on above: Performed By: #### L 100.0100 ####[facility] [address] [place], [address] MCH (RBC) [Entitic mass] 29.9 pg Normal 27.0-32.0 [facility] Comment on above: Performed By: #### L 100.0100 ####[facility] [address] [place], [address] MCHC (RBC) [Mass/Vol] 32.9 g/dL Normal 32-36 [facility] Comment on above: Performed By: #### L 100.0100 ####[facility] [address] [place], [address] MCV (RBC) [Entitic vol] 90.9 fL Normal 81-99 [facility] Comment on above: Performed By: #### L 100.0100 ####[facility] [address] [place], [address] Monocytes/100 WBC (Bld) 5.8 % Normal 0-10 [facility] Comment on above: Performed By: #### L 100.0100 ####[facility] [address] [place], [address] Neutrophils/100 WBC (Bld) 74.4 % High 47-70 [facility] Comment on above: Performed By: #### L 100.0100 ####[facility] [address] [place], [address] Nucleated RBC (Bld) [#/Vol] 0 10*3/uL Normal 0-5 [facility] Comment on above: Performed By: #### L 100.0100 ####[facility] [address] [place], [address] Platelet mean volume (Bld) [Entitic vol] 9.7 fL Normal 6.2-12.0 [facility] Comment on above: Performed By: #### L 100.0100 ####[facility] [address] [place], [address] Platelets (Bld) [#/Vol] 329 10*3/uL Normal 150-450 [facility] Comment on above: Performed By: #### L 100.0100 ####[facility] [address] [place], [address] RBC (Bld) [#/Vol] 3.85 10*6/uL Low 4.2-5.4 [facility] Comment on above: Performed By: #### L 100.0100 ####[facility] [address] [place], [address] RDW SD 47.5 fl High 35.1-43.9 [facility] Comment on above: Performed By: #### L 100.0100 ####[facility] [address] [place], [address] WBC (Bld) [#/Vol] 9.2 10*3/uL Normal 4.4-11.0 [facility] Comment on above: Performed By: #### L 100.0100 ####[facility] [address] [place], [address] Eosinophil percentageOrdered By: Fela Goldberg on 06-04-2024 Eosinophils/100 WBC (Bld) 1.0 % 0-5 [facility] Erythrocyte distribution wid th ratioOrdered By: Fela Goldberg on 06-04-2024 Erythrocyte distribution width (RBC) [Ratio] 14.2 % 11.6-14.6 [facility] Erythrocyte distribution wid th standard deviationOrdered By: [facility] Gwinnettefrain Goldberg on 06-04-2024 Erythrocyte distribution width (RBC) [Ratio] 47.5 fl High 35.1-43.9 [facility] Hematocrit Auto (Bld) [Volum e fraction]Ordered By: [facility] Gwinnettefrain Goldberg on 06-04-2024 Hematocrit (Bld) [Volume fraction] 35.0 % Low 37-47 [facility] Hemoglobin measurementOrdere d By: Fela Goldberg on 06-04-2024 Hemoglobin (Bld) [Mass/Vol] 11.5 g/dL Low 12.0-15.0 [facility] Immature granulocytes/100 WB C Auto (Bld)Ordered By: Fela Goldberg on 06-04-2024 Immature granulocytes/100 WBC (Bld) 0.200 % 0.0-0.9 [facility] Comment on above: IG% - Immature Granu locytes (promyelocytes, myelocytes and metamyelocytes) > 1% indicates that a LEFT SHIFT is Present. MCV (mean corpuscular volume ) determinationOrdered By: Fela Goldberg on 06-04-2024 MCV (RBC) [Entitic vol] 90.9 fL 81-99 [facility] Mean corpuscular hemoglobin (MCH) determinationOrdered By: Efmau Mendietae on 06-04-2024 MCH (RBC) [Entitic mass] 29.9 pg 27.0-32.0 [facility] Mean corpuscular hemoglobin concentration (MCHC) determinationOrdered By: Fela Goldberg on 06-04-2024 MCHC (RBC) [Mass/Vol] 32.9 g/dL 32-36 [facility] Mean platelet volume determi nationOrdered By: Fela Goldebrg on 06-04-2024 Platelet mean volume (Bld) [Entitic vol] 9.7 fL 6.2-12.0 [facility] Monocyte percentageOrdered B y: Fela Goldberg on 06-04-2024 Monocytes/100 WBC (Bld) 5.8 % 0-10 [facility] Neutrophil percentageOrdered By: Fela Goldberg on 06-04-2024 Neutrophils/100 WBC (Bld) 74.4 % High 47-70 [facility] Nucleated red blood cell per centageOrdered By: Fela Goldberg on 06-04-2024 Nucleated RBC/100 WBC (Bld) [Ratio] 0 % 0-5 [facility] Platelet countOrdered By: Kaylah brendajean Goldberg on 06-04-2024 Platelets (Bld) [#/Vol] 329 10*3/uL 150-450 [facility] RBC Auto (Bld) [#/Vol]Ordere d By: Fela Mendietae on 06-04-2024 RBC (Bld) [#/Vol] 3.85 10*6/uL Low 4.2-5.4 [facility] White blood cell (WBC) count Ordered By: Fela Goldberg on 06-04-2024 WBC (Bld) [#/Vol] 9.2 10*3/uL 4.4-11.0 [facility] Absolute lymphocyte countOrd ered By: Fela Goldberg on 02-20-2024 Lymphocytes Auto (Unsp spec) [#/Vol] 1.12 10*3/uL 0.83-4.51 [facility] Absolute neutrophil countOrd ered By: Fela Goldberg on 02-20-2024 Neutrophils (Bld) [#/Vol] 3.2 10*3/uL 2.0-7.7 [facility] Albumin to globulin ratioOrd ered By: Fela Goldberg on 02-20-2024 Albumin/Globulin [Mass ratio] 1.1 {ratio} 0.9-2.4 [facility] Automated lymphocyte count a s percentage of total leukocytesOrdered By: Fela Goldberg on 02-20-2024 Lymphocytes/100 WBC Auto (Unsp spec) 23.1 % 19-41 [facility] Basophil percentageOrdered B y: Fela Goldberg on 02-20-2024 Basophils/100 WBC (Bld) 0.6 % 0-1 [facility] Bilirubin, totalOrdered By: Fela Goldberg on 02-20-2024 Bilirubin [Mass/Vol] 0.50 mg/dL 0.20-1.00 [facility] Comment on above: For patients on eltr ombopag therapy, use of Dimension [place] TBIL is not recommended. Blood urea nitrogen (BUN)/cr eatinine ratioOrdered By: Fela Goldberg on 02-20-2024 Urea nitrogen/Creatinine [Mass ratio] 14.2 mg/mg 10-20 [facility] CBC W/Diff, Automatedon 02-07 Absolute Lymph 1.12 X10 3/uL Normal 0.83-4.51 [facility] Comment on above: Performed By: #### L 100.0100, L500.4050, L500.4100 #### [facility] [address] [place], [address] Absolute Neut 3.2 X10 3/uL Normal 2.0-7.7 [facility] Comment on above: Performed By: #### L 100.0100, L500.4050, L500.4100 #### [facility] [address] [place], [address] Basophils/100 WBC (Bld) 0.6 % Normal 0-1 [facility] Comment on above: Performed By: #### L 100.0100, L500.4050, L500.4100 #### [facility] [address] [place], [address] Eosinophils/100 WBC (Bld) 1.7 % Normal 0-5 [facility] Comment on above: Performed By: #### L 100.0100, L500.4050, L500.4100 #### [facility] [address] [place], [address] Erythrocyte distribution width (RBC) [Ratio] 12.9 % Normal 11.6-14.6 [facility] Comment on above: Performed By: #### L 100.0100, L500.4050, L500.4100 #### [facility] [address] [place], [address] Hematocrit (Bld) [Volume fraction] 36.8 % Low 37-47 [facility] Comment on above: Performed By: #### L 100.0100, L500.4050, L500.4100 #### [facility] [address] [place], [address] Hemoglobin (Bld) [Mass/Vol] 11.6 g/dL Low 12.0-15.0 [facility] Comment on above: Performed By: #### L 100.0100, L500.4050, L500.4100 #### [facility] [address] [place], [address] IG% 0.400 Normal 0.0-0.9 [facility] Comment on above: Result Comment: IG% - Immature Granulocytes (promyelocytes, myelocytes and metamyelocytes) > 1% indicates that a LEFT SHIFT is Present. Performed By: #### L 100.0100, L500.4050, L500.4100 #### [facility] [address] [place], [address] Lymphocytes/100 WBC (Bld) 23.1 % Normal 19-41 [facility] Comment on above: Performed By: #### L 100.0100, L500.4050, L500.4100 #### [facility] [address] [place], [address] MCH (RBC) [Entitic mass] 29.0 pg Normal 27.0-32.0 [facility] Comment on above: Performed By: #### L 100.0100, L500.4050, L500.4100 #### [facility] [address] [place], [address] MCHC (RBC) [Mass/Vol] 31.5 g/dL Low 32-36 [facility] Comment on above: Performed By: #### L 100.0100, L500.4050, L500.4100 #### [facility] [address] [place], [address] MCV (RBC) [Entitic vol] 92.0 fL Normal 81-99 [facility] Comment on above: Performed By: #### L 100.0100, L500.4050, L500.4100 #### [facility] [address] [place], [address] Monocytes/100 WBC (Bld) 7.4 % Normal 0-10 [facility] Comment on above: Performed By: #### L 100.0100, L500.4050, L500.4100 #### [facility] [address] [place], [address] Neutrophils/100 WBC (Bld) 66.8 % Normal 47-70 [facility] Comment on above: Performed By: #### L 100.0100, L500.4050, L500.4100 #### [facility] [address] [place], [address] Nucleated RBC (Bld) [#/Vol] 0 10*3/uL Normal 0-5 [facility] Comment on above: Performed By: #### L 100.0100, L500.4050, L500.4100 #### [facility] [address] [place], [address] Platelet mean volume (Bld) [Entitic vol] 10.0 fL Normal 6.2-12.0 [facility] Comment on above: Performed By: #### L 100.0100, L500.4050, L500.4100 #### [facility] [address] [place], [address] Platelets (Bld) [#/Vol] 311 10*3/uL Normal 150-450 [facility] Comment on above: Performed By: #### L 100.0100, L500.4050, L500.4100 #### [facility] [address] [place], [address] RBC (Bld) [#/Vol] 4.00 10*6/uL Low 4.2-5.4 [facility] Comment on above: Performed By: #### L 100.0100, L500.4050, L500.4100 #### [facility] [address] [place], [address] RDW SD 43.1 fl Normal 35.1-43.9 [facility] Comment on above: Performed By: #### L 100.0100, L500.4050, L500.4100 #### [facility] [address] [place], [address] WBC (Bld) [#/Vol] 4.8 10*3/uL Normal 4.4-11.0 [facility] Comment on above: Performed By: #### L 100.0100, L500.4050, L500.4100 #### [facility] [address] [place], [address] Carbon dioxide measurementOr dered By: Fela Goldberg on 02-20-2024 CO2 [Moles/Vol] 27.0 mmol/L 21.0-32.0 [facility] Chloride measurementOrdered By: Fela Goldberg on 02-20-2024 Chloride [Moles/Vol] 108 mmol/L High 98-107 [facility] Metabolic Prof ilon 02-20-2024 Albumin [Mass/Vol] 3.7 g/dL Normal 3.2-5.0 [facility] Comment on above: Performed By: #### L 100.0100, L500.4050, L500.4100 #### [facility] [address] [place], [address] Albumin/Globulin [Mass ratio] 1.1 {ratio} Normal 0.9-2.4 [facility] Comment on above: Performed By: #### L 100.0100, L500.4050, L500.4100 #### [facility] [address] [place], [address] ALK P 40 U/L Low 45-117 [facility] Comment on above: Performed By: #### L 100.0100, L500.4050, L500.4100 #### [facility] [address] [place], [address] ALT [Catalytic activity/Vol] 18 U/L Normal 13-56 [facility] Comment on above: Performed By: #### L 100.0100, L500.4050, L500.4100 #### [facility] [address] [place], [address] AST [Catalytic activity/Vol] 17 U/L Normal 15-37 [facility] Comment on above: Performed By: #### L 100.0100, L500.4050, L500.4100 #### [facility] [address] [place], [address] Bilirubin [Mass/Vol] 0.50 mg/dL Normal 0.20-1.00 [facility] Comment on above: Result Comment: For patients on eltrombopag therapy, use of Dimension [place] TBIL is not recommended. Performed By: #### L 100.0100, L500.4050, L500.4100 #### [facility] [address] [place], [address] BUN/CRE 14.2 RATIO Normal 10-20 [facility] Comment on above: Performed By: #### L 100.0100, L500.4050, L500.4100 #### [facility] [address] [place], [address] CA,Total 8.7 mg/dL Normal 8.5-10.1 [facility] Comment on above: Performed By: #### L 100.0100, L500.4050, L500.4100 #### [facility] [address] [place], [address] Chloride [Moles/Vol] 108 mmol/L High 98-107 [facility] Comment on above: Performed By: #### L 100.0100, L500.4050, L500.4100 #### [facility] [address] [place], [address] CO2 [Moles/Vol] 27.0 mmol/L Normal 21.0-32.0 [facility] Comment on above: Performed By: #### L 100.0100, L500.4050, L500.4100 #### [facility] [address] [place], [address] Creatinine [Mass/Vol] 0.77 mg/dL Normal 0.55-1.02 [facility] Comment on above: Result Comment: The validity of the calculated GFR GFRAA in patients over 70 years has not been determined. Clinical correlation is essential. Performed By: #### L 100.0100, L500.4050, L500.4100 #### [facility] [address] [place], [address] EST GFR - AA 102 mL/min Normal >60 [facility] Comment on above: Result Comment: Afri can [place] GFR Calc Performed By: #### L 100.0100, L500.4050, L500.4100 #### [facility] [address] [place], [address] GAP 4 Low 5-15 [facility] Comment on above: Performed By: #### L 100.0100, L500.4050, L500.4100 #### [facility] [address] [place], [address] GFR/1.73 sq M.predicted among non-blacks MDRD (S/P/Bld) [Vol rate/Area] 85 mL/min/{1.73_m2} Normal >60 [facility] Comment on above: Result Comment: Non- GFR Calc Performed By: #### L 100.0100, L500.4050, L500.4100 #### [facility] [address] [place], [address] Globulin (S) [Mass/Vol] 3.3 g/dL Normal 2.2-4.2 [facility] Comment on above: Performed By: #### L 100.0100, L500.4050, L500.4100 #### [facility] [address] [place], [address] Glucose [Mass/Vol] 90 mg/dL Normal 74-106 [facility] Comment on above: Performed By: #### L 100.0100, L500.4050, L500.4100 #### [facility] [address] [place], [address] Potassium [Moles/Vol] 3.8 mmol/L Normal 3.5-5.1 [facility] Comment on above: Performed By: #### L 100.0100, L500.4050, L500.4100 #### [facility] [address] [place], [address] Sodium [Moles/Vol] 139 mmol/L Normal 136-145 [facility] Comment on above: Performed By: #### L 100.0100, L500.4050, L500.4100 #### [facility] [address] [place], [address] T PROT 7.0 g/dL Normal 6.4-8.2 [facility] Comment on above: Performed By: #### L 100.0100, L500.4050, L500.4100 #### [facility] [address] [place], [address] Urea nitrogen [Mass/Vol] 11 mg/dL Normal 7-18 [facility] Comment on above: Performed By: #### L 100.0100, L500.4050, L500.4100 #### [facility] [address] [place], [address] Eosinophil percentageOrdered By: Fela Goldberg on 02-20-2024 Eosinophils/100 WBC (Bld) 1.7 % 0-5 [facility] Erythrocyte distribution wid th ratioOrdered By: Fela Goldberg on 02-20-2024 Erythrocyte distribution width (RBC) [Ratio] 12.9 % 11.6-14.6 [facility] Erythrocyte distribution wid th standard deviationOrdered By: Fela Goldberg on 02-20-2024 Erythrocyte distribution width (RBC) [Ratio] 43.1 fl 35.1-43.9 [facility] Glomerular filtration rate ( GFR) estimationOrdered By: Fela Goldberg on 02-20-2024 GFR/1.73 sq M.predicted among non-blacks MDRD (S/P/Bld) [Vol rate/Area] 85 mL/min/{1.73_m2} >60 [facility] Comment on above: Non- GFR Calc Glucose measurementOrdered B y: Fela Goldberg on 02-20-2024 Glucose [Mass/Vol] 90 mg/dL 74-106 [facility] Hematocrit Auto (Bld) [Volum e fraction]Ordered By: Fela Goldberg on 02-20-2024 Hematocrit (Bld) [Volume fraction] 36.8 % Low 37-47 [facility] Hemoglobin measurementOrdere d By: Fela Goldberg on 02-20-2024 Hemoglobin (Bld) [Mass/Vol] 11.6 g/dL Low 12.0-15.0 [facility] High density lipoprotein (HD L) measurementOrdered By: Fela Goldberg on 02-20-2024 Cholesterol in HDL [Mass/Vol] 75 mg/dL >40 [facility] Comment on above: The drugs N-Acetylcy steine and Metamizole may falsely depress this assay. Reference Range HDL <40 mg/dL Low HDL Cholesterol HDL >or= 60 mg/dL High HDL Cholesterol Immature granulocytes/100 WB C Auto (Bld)Ordered By: Fela Goldberg on 02-20-2024 Immature granulocytes/100 WBC (Bld) 0.400 % 0.0-0.9 [facility] Comment on above: IG% - Immature Granu locytes (promyelocytes, myelocytes and metamyelocytes) > 1% indicates that a LEFT SHIFT is Present. Internal Medicine Office Vis itojillian 02-20-2024 Internal Medicine Office Visit [facility] [address] [place], [place] [address] OFFICE VISIT Date of Service: 02/20/24 MR#: [id number] Acct: [id number] Name: CARINA LOPEZ Rep #: [id number] : 1975 Provider: Dr. Fela bean MD Age/Sex: 48/F Location: [facility] Status: Signed Intake Vital Signs 05/17/23 11:06 [...] Intake Visit Reasons: YEARLY Chief Complaint: annual Design Tech Required: No Accompanied by: Self Is patient [...] and at (more content not included)... Normal [facility] - Chemistry and C hemistry - challengeOrdered By: Fela Goldberg on 02-20-2024 AST [Catalytic activity/Vol] 17 U/L 15-37 [facility] [facility] Cholesterol [Mass/Vol] 170 mg/dL Normal 200 [facility] Comment on above: Result Comment: <200 mg/dL Desirable 200-240 mg/dL Borderline >240 mg/dL High Risk Performed By: #### L 100.0100, L500.4050, L500.4100 #### [facility] [address] [place], [address] Cholesterol in HDL [Mass/Vol] 75 mg/dL Normal [facility] Comment on above: Result Comment: The drugs N-Acetylcysteine and Metamizole may falsely depress this assay. Reference Range HDL <40 mg/dL Low HDL Cholesterol HDL >or= 60 mg/dL High HDL Cholesterol Performed By: #### L 100.0100, L500.4050, L500.4100 #### [facility] [address] [place], [address] Cholesterol in LDL [Mass/Vol] 81 mg/dL Normal 0-130 [facility] Comment on above: Performed By: #### L 100.0100, L500.4050, L500.4100 #### [facility] [address] [place], [address] Cholesterol in VLDL [Mass/Vol] 14 mg/dL Normal 5-40 [facility] Comment on above: Performed By: #### L 100.0100, L500.4050, L500.4100 #### [facility] [address] [place], [address] Triglyceride [Mass/Vol] 69 mg/dL Normal [facility] Comment on above: Result Comment: The drugs N-Acetylcysteine and Metamizole may falsely depress this assay. Serum Triglycerides Reference Interval Normal <150 mg/dL Borderline high 150 - 199 mg/dL High 200 - 499 mg/dL Very High > or = 500 mg/dL Performed By: #### L 100.0100, L500.4050, L500.4100 #### [facility] [address] [place], [address] Low density lipoprotein (LDL ) cholesterol measurementOrdered By: Fela Goldberg on 02-20-2024 Cholesterol in LDL [Mass/Vol] 81 mg/dL 0-130 [facility] MCV (mean corpuscular volume ) determinationOrdered By: Fela Goldberg on 02-20-2024 MCV (RBC) [Entitic vol] 92.0 fL 81-99 [facility] Mean corpuscular hemoglobin (MCH) determinationOrdered By: Fela Goldberg on 02-20-2024 MCH (RBC) [Entitic mass] 29.0 pg 27.0-32.0 [facility] Mean corpuscular hemoglobin concentration (MCHC) determinationOrdered By: Fela Goldberg on 02-20-2024 MCHC (RBC) [Mass/Vol] 31.5 g/dL Low 32-36 [facility] Mean platelet volume determi nationOrdered By: Fela Goldberg on 02-20-2024 Platelet mean volume (Bld) [Entitic vol] 10.0 fL 6.2-12.0 [facility] Monocyte percentageOrdered B y: Fela Goldberg on 02-20-2024 Monocytes/100 WBC (Bld) 7.4 % 0-10 [facility] Neutrophil percentageOrdered By: Fela Goldberg on 02-20-2024 Neutrophils/100 WBC (Bld) 66.8 % 47-70 [facility] Nucleated red blood cell per centageOrdered By: Fela Goldberg on 02-20-2024 Nucleated RBC/100 WBC (Bld) [Ratio] 0 % 0-5 [facility] Platelet countOrdered By: Kaylah Goldberg on 02-20-2024 Platelets (Bld) [#/Vol] 311 10*3/uL 150-450 [facility] Potassium measurementOrdered By: Fela Goldberg on 02-20-2024 Potassium [Moles/Vol] 3.8 mmol/L 3.5-5.1 [facility] RBC Auto (Bld) [#/Vol]Ordere d By: Fela Goldberg on 02-20-2024 RBC (Bld) [#/Vol] 4.00 10*6/uL Low 4.2-5.4 [facility] Serum anion gap measurementO rdered By: Fela Goldberg on 02-20-2024 Anion gap [Moles/Vol] 4 mmol/L Low 5-15 [facility] Serum globulin measurementOr dered By: Fela Goldberg on 02-20-2024 Globulin (S) [Mass/Vol] 3.3 g/dL 2.2-4.2 [facility] Serum or plasma alanine gunn otransferase (ALT) measurementOrdered By: Fela Goldberg on 02-20-2024 ALT [Catalytic activity/Vol] 18 U/L 13-56 [facility] Serum or plasma albumin joan urement (mass/volume)Ordered By: Fela Goldberg on 02-20-2024 Albumin [Mass/Vol] 3.7 g/dL 3.2-5.0 [facility] Serum or plasma alkaline jose sphatase measurementOrdered By: Fela Goldberg on 02-20-2024 ALP [Catalytic activity/Vol] 40 U/L Low 45-117 [facility] Serum or plasma calcium joan urement (mass/volume)Ordered By: Fela Goldberg on 02-20-2024 Calcium [Mass/Vol] 8.7 mg/dL 8.5-10.1 [facility] Serum or plasma cholesterol measurement (mass/volume)Ordered By: Fela Goldberg on 02-20-2024 Cholesterol [Mass/Vol] 170 mg/dL <200 [facility] Comment on above: <200 mg/dL Desirable 200-240 mg/dL Borderline >240 mg/dL High Risk Serum or plasma creatinine m easurement (mass/volume)Ordered By: Fela Goldberg on 02-20-2024 Creatinine [Mass/Vol] 0.77 mg/dL 0.55-1.02 [facility] Comment on above: The validity of the calculated GFR & GFRAA in patients over 70 years has not been determined. Clinical correlation is essential. Serum or plasma urea nitroge n measurement (mass/volume)Ordered By: Fela Goldberg on 02-20-2024 Urea nitrogen [Mass/Vol] 11 mg/dL 7-18 [facility] Sodium levelOrdered By: Abeba guntermarie Yusuf on 02-20-2024 Sodium [Moles/Vol] 139 mmol/L 136-145 [facility] Total proteinOrdered By: Sebastián Goldberg on 02-20-2024 Protein [Mass/Vol] 7.0 g/dL 6.4-8.2 [facility] Triglycerides measurementOrd ered By: Fela Goldberg on 02-20-2024 Triglyceride [Mass/Vol] 69 mg/dL <199 [facility] Comment on above: The drugs N-Acetylcy steine and Metamizole may falsely depress this assay.Serum Triglycerides Reference Interval Normal <150 mg/dL Borderline high 150 - 199 mg/dL High 200 - 499 mg/dL Very High > or = 500 mg/dL Very low density lipoprotein (VLDL) cholesterol measurementOrdered By: Fela Goldberg on 02-20-2024 Very low density lipoprotein (VLDL) cholesterol measurement 14 mg/dL 5-40 [facility] White blood cell (WBC) count Ordered By: Fela Goldberg on 02-20-2024 WBC (Bld) [#/Vol] 4.8 10*3/uL 4.4-11.0 [facility] SCRN MAMM (CAD)W/KATHY BILATo n 12-30-2023 SCRN MAMM (CAD)W/KATHY BILAT [facility] Imaging Services [address] [place] [address] SCRN MAMM (CAD)W/KATHY BILAT MR#: [id number] Acct: [id number] Name: CARINA LOPEZ Rep #: [id number] : 1975 F 48 From: Bryan chung MD PCP: Dr. 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 [id number] Electronically Signed: Bryan Fowler MD at 14:23 EST , CC: SANJANA Haile; Dr. 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 Normal [facility] Absolute lymphocyte countOrd ered By: Dr. Goldberg on 02-11-2022 Lymphocytes Auto (Unsp spec) [#/Vol] 1.23 10*3/uL 0.83-4.51 [facility] Basophil percentageOrdered B y: Dr. Goldberg on 02-11-2022 Basophils/100 WBC (Bld) 0.8 % 0-1 [facility] Bilirubin [Mass/Vol] 0.60 mg/dL 0.20-1.00 [facility] Comment on above: For patients on eltr ombopag therapy, use of Dimension [place] TBIL is not recommended. Chloride [Moles/Vol] 105 mmol/L 98-107 [facility] Cholesterol [Mass/Vol] 226 mg/dL <200 [facility] Comment on above: <200 mg/dL Desirable 200-240 mg/dL Borderline >240 mg/dL High Risk Eosinophils/100 WBC (Bld) 1.6 % 0-5 [facility] Glucose [Mass/Vol] 96 mg/dL 74-106 [facility] Neutrophils (Bld) [#/Vol] 3.3 10*3/uL 2.0-7.7 [facility] Neutrophils/100 WBC (Bld) 64.6 % 47-70 [facility] Potassium [Moles/Vol] 3.7 mmol/L 3.5-5.1 [facility] Protein [Mass/Vol] 7.1 g/dL 6.4-8.2 [facility] Sodium [Moles/Vol] 138 mmol/L 136-145 [facility] Triglyceride [Mass/Vol] 100 mg/dL <199 [facility] Comment on above: The drugs N-Acetylcy steine and Metamizole may falsely depress this assay.Serum Triglycerides Reference Interval Normal <150 mg/dL Borderline high 150 - 199 mg/dL High 200 - 499 mg/dL Very High > or = 500 mg/dL WBC (Bld) [#/Vol] 5.1 10*3/uL 4.4-11.0 [facility] Blood erythrocytes count (nu mber/volume)Ordered By: Dr. Goldberg on 02-11-2022 RBC (Bld) [#/Vol] 4.30 10*6/uL 4.2-5.4 [facility] Blood hemoglobin measurement (mass/volume)Ordered By: Dr. Goldberg on 02-11-2022 Hemoglobin (Bld) [Mass/Vol] 13.0 g/dL 12.0-15.0 [facility] Blood lymphocytes/100 leukoc ytesOrdered By: Dr. Goldberg on 02-11-2022 Lymphocytes/100 WBC (Bld) 24.3 % 19-41 [facility] Blood monocytes/100 leukocyt esOrdered By: Dr. Goldberg on 02-11-2022 Monocytes/100 WBC (Bld) 8.3 % 0-10 [facility] Blood platelet mean volumeOr dered By: Dr. Goldberg on 02-11-2022 Platelet mean volume (Bld) [Entitic vol] 9.7 fL 6.2-12.0 [facility] Determination of erythrocyte mean corpuscular volume (MCV)Ordered By: Dr. Goldberg on 02-11-2022 MCV (RBC) [Entitic vol] 95.3 fL 81-99 [facility] Hematocrit Auto (Bld) [Volum e fraction]Ordered By: Dr. Goldberg on 02-11-2022 Hematocrit (Bld) [Volume fraction] 41.0 % 37-47 [facility] - Chemistry and C hemistry - challengeOrdered By: Dr. Goldberg on 02-11-2022 ALP [Catalytic activity/Vol] 42 U/L 45-117 [facility] ALT [Catalytic activity/Vol] 27 U/L 13-56 [facility] CO2 [Moles/Vol] 27.0 mmol/L 21.0-32.0 [facility] Globulin (S) [Mass/Vol] 3.0 g/dL 2.2-4.2 [facility] Urea nitrogen/Creatinine [Mass ratio] 15.3 mg/mg 10-20 [facility] - Hematology and Cell countsOrdered By: Dr. Goldberg on 02-11-2022 Erythrocyte distribution width (RBC) [Entitic vol] 42.9 fL 35.1-43.9 [facility] Erythrocyte distribution width (RBC) [Ratio] 12.2 % 11.6-14.6 [facility] Immature granulocytes/100 WBC (Bld) 0.400 % 0.0-0.9 [facility] Comment on above: IG% - Immature Granu locytes (promyelocytes, myelocytes and metamyelocytes) > 1% indicates that a LEFT SHIFT is Present. MCH (RBC) [Entitic mass] 30.2 pg 27.0-32.0 [facility] Nucleated RBC/100 WBC (Bld) [Ratio] 0 % 0-5 [facility] MCHC Auto (RBC) [Mass/Vol]Or dered By: Dr. Goldberg on 02-11-2022 MCHC (RBC) [Mass/Vol] 31.7 g/dL 32-36 [facility] No Panel InformationOrdered By: Dr. Goldberg on 02-11-2022 Estimated GFR (MDRD) Amer 112 mL/min >60 [facility] Comment on above: GFR Calc Estimated GFR (MDRD) Non-Af Amer 93 mL/min >60 [facility] Comment on above: Non- GFR Calc Platelets bldOrdered By: Dr. Goldberg on 02-11-2022 Platelets (Bld) [#/Vol] 321 10*3/uL 150-450 [facility] Serum or plasma albumin joan urement (mass/volume)Ordered By: Dr. Goldberg on 02-11-2022 Albumin [Mass/Vol] 4.1 g/dL 3.2-5.0 [facility] Serum or plasma albumin/glob ulin mass ratioOrdered By: Dr. Goldberg on 02-11-2022 Albumin/Globulin [Mass ratio] 1.4 {ratio} 0.9-2.4 [facility] Serum or plasma calcium joan urement (mass/volume)Ordered By: Dr. Goldberg on 02-11-2022 Calcium [Mass/Vol] 8.7 mg/dL 8.5-10.1 [facility] Serum or plasma cholesterol in HDL measurement (mass/volume)Ordered By: Dr. Goldberg on 02-11-2022 Cholesterol in HDL [Mass/Vol] 76 mg/dL >40 [facility] Comment on above: The drugs N-Acetylcy steine and Metamizole may falsely depress this assay. Reference Range HDL <40 mg/dL Low HDL Cholesterol HDL >or= 60 mg/dL High HDL Cholesterol Serum or plasma cholesterol in VLDL measurement (mass/volume)Ordered By: Dr. Goldberg on 02-11-2022 Cholesterol in VLDL [Mass/Vol] 20 mg/dL 5-40 [facility] Serum or plasma creatinine m easurement (mass/volume)Ordered By: Dr. Goldberg on 02-11-2022 Creatinine [Mass/Vol] 0.72 mg/dL 0.55-1.02 [facility] Comment on above: The validity of the calculated GFR & GFRAA in patients over 70 years has not been determined. Clinical correlation is essential. Serum or plasma low density lipoprotein (LDL) cholesterol measurement (mass/volume)Ordered By: Dr. Goldberg on 02-11-2022 Cholesterol in LDL [Mass/Vol] 130 mg/dL 0-130 [facility] Serum or plasma urea nitroge n measurement (mass/volume)Ordered By: Dr. Goldberg on 02-11-2022 Urea nitrogen [Mass/Vol] 11 mg/dL 7-18 [facility] Thin prep Papanicolaou smear with manual screeningOrdered By: Dr. Goldberg on 02-11-2022 Thin prep Papanicolaou smear with manual screening 15 U/L 15-37 [facility] Thin prep Papanicolaou smear with manual screening 6 5-15 [facility] Vital Signs Date Time Vital Sign Value Performing Clinician Faci wendiy 10-29-2024 13:27-0400 Body height 165.[address] Fela Godlberg MD Work Phone: [facility] 10-29-2024 13:27-0400 Body mass index (BMI) [Ratio] 22 kg/m2 Dr. Fela Goldberg MD Work Phone: [facility] 10-29-2024 13:27-0400 Body weight 60.[address] Fela Goldberg MD Work Phone: [facility] 10-29-2024 13:27-0400 Diastolic blood pressure 62 mm[Hg] Dr. Fela Goldberg MD Work Phone: [facility] 10-29-2024 13:27-0400 Heart rate 67 /min Dr. Fela Goldbegr MD Work Phone: [facility] 10-29-2024 13:27-0400 SaO2% (BldA) [Mass fraction] 98 % Dr. Fela Goldberg MD Work Phone: [facility] 10-29-2024 13:27-0400 Systolic blood pressure 114 mm[Hg] Dr. Fela Goldberg MD Work Phone: [facility] 08-23-2024 07:24-0400 Body height 165.[address] Fela Goldberg MD Work Phone: [facility] 08-23-2024 07:24-0400 Body temperature 98.4 [degF] Dr. Fela Goldberg MD Work Phone: [facility] 08-23-2024 07:24-0400 Diastolic blood pressure 62 mm[Hg] Dr. Fela Goldberg MD Work Phone: [facility] 08-23-2024 07:24-0400 Heart rate 69 /min Dr. Fela Goldberg MD Work Phone: [facility] 08-23-2024 07:24-0400 Respiratory rate 15 /min Dr. Fela Goldberg MD Work Phone: [facility] 08-23-2024 07:24-0400 SaO2% (BldA) [Mass fraction] 98 % Dr. Fela Goldberg MD Work Phone: [facility] 08-23-2024 07:24-0400 Systolic blood pressure 110 mm[Hg] Dr. Fela Goldberg MD Work Phone: [facility] 02-20-2024 08:26-0500 Body height 165.[address] Fela Goldberg MD Work Phone: [facility] 02-20-2024 08:26-0500 Body mass index (BMI) [Ratio] 23.1 kg/m2 Dr. Fela Goldberg MD Work Phone: [facility] 02-20-2024 08:26-0500 Body temperature 96.2 [degF] Dr. Fela Goldberg MD Work Phone: [facility] 02-20-2024 08:26-0500 Body weight 63.[address] Fela Goldberg MD Work Phone: [facility] 02-20-2024 08:26-0500 Diastolic blood pressure 74 mm[Hg] Dr. Fela Goldberg MD Work Phone: [facility] 02-20-2024 08:26-0500 Heart rate 66 /min Dr. Fela Goldberg MD Work Phone: [facility] 02-20-2024 08:26-0500 Respiratory rate 12 /min Dr. Fela Goldberg MD Work Phone: [facility] 02-20-2024 08:26-0500 SaO2% (BldA) [Mass fraction] 99 % Dr. Fela Goldberg MD Work Phone: [facility] 02-20-2024 08:26-0500 Systolic blood pressure 118 mm[Hg] Dr. Fela Goldberg MD Work Phone: [facility] 05-17-2023 11:06-0400 Body height 165.[address] Fela Goldberg Work Phone: [facility] 05-17-2023 11:06-0400 Body mass index (BMI) [Ratio] 21.6 kg/m2 Dr. Fela Goldberg Work Phone: [facility] 05-17-2023 11:06-0400 Body temperature 98.6 [degF] Dr. Fela Goldberg Work Phone: [facility] 05-17-2023 11:06-0400 Body weight 58.[address] Fela Goldberg Work Phone: [facility] 05-17-2023 11:06-0400 Diastolic blood pressure 66 mm[Hg] Dr. Fela Goldberg Work Phone: [facility] 05-17-2023 11:06-0400 Heart rate 74 /min Dr. Fela Goldberg Work Phone: [facility] 05-17-2023 11:06-0400 Respiratory rate 14 /min Dr. Fela Goldberg Work Phone: [facility] 05-17-2023 11:06-0400 SaO2% (BldA) [Mass fraction] 96 % Dr. Fela Goldberg Work Phone: [facility] 05-17-2023 11:06-0400 Systolic blood pressure 104 mm[Hg] Dr. Fela Goldberg Work Phone: [facility] 12-01-2022 10:56-0400 Body height 165.[address] Fela Goldberg Work Phone: [facility] 12-01-2022 10:55-0400 Body mass index (BMI) [Ratio] 21 kg/m2 Dr. Fela Goldberg Work Phone: [facility] 12-01-2022 10:55-0400 Body weight 57.[address] Fela Goldberg Work Phone: [facility] 12-01-2022 10:55-0400 Diastolic blood pressure 74 mm[Hg] Dr. Fela Goldberg Work Phone: [facility] 12-01-2022 10:55-0400 Systolic blood pressure 117 mm[Hg] Dr. Fela Goldberg Work Phone: [facility] 09-13-2022 09:50-0400 Body mass index (BMI) [Ratio] 21.4 kg/m2 Dr. Fela Goldberg Work Phone: [facility] 09-13-2022 09:50-0400 Body temperature 98.6 [degF] Dr. Fela Goldberg Work Phone: [facility] 09-13-2022 09:50-0400 Body weight 58.[address] Fela Goldberg Work Phone: [facility] 09-13-2022 09:50-0400 Diastolic blood pressure 72 mm[Hg] Dr. Fela Goldberg Work Phone: [facility] 09-13-2022 09:50-0400 Heart rate 75 /min Dr. Fela Goldberg Work Phone: [facility] 09-13-2022 09:50-0400 Respiratory rate 14 /min Dr. Fela Goldberg Work Phone: [facility] 09-13-2022 09:50-0400 SaO2% (BldA) [Mass fraction] 98 % Dr. Fela Goldberg Work Phone: [facility] 09-13-2022 09:50-0400 Systolic blood pressure 115 mm[Hg] Dr. Fela Goldberg Work Phone: [facility] 05-26-2022 18:11-0400 Body temperature 98.6 [degF] Sima Gonzalez PA-C Work Phone: [facility] 05-26-2022 18:11-0400 Body weight 61.24 kg Sima Gonzalez PA-C Work Phone: [facility] 05-26-2022 18:11-0400 Diastolic blood pressure 70 mm[Hg] Sima Gonzalez PA-C Work Phone: [facility] 05-26-2022 18:11-0400 Heart rate 86 /min Sima Athy PA-C Work Phone: [facility] 05-26-2022 18:11-0400 Respiratory rate 18 /min Sima Athy PA-C Work Phone: [facility] 05-26-2022 18:11-0400 SaO2% (BldA) [Mass fraction] 99 % Sima Athy PA-C Work Phone: [facility] 05-26-2022 18:11-0400 Systolic blood pressure 110 mm[Hg] Sima Anushkay PA-C Work Phone: [facility] 01-20-2022 09:35-0500 Body temperature 97.7 [degF] Dr. Fela Goldberg Work Phone: [facility] 01-20-2022 09:35-0500 Body weight 58.[address] Fela Goldberg Work Phone: [facility] 01-20-2022 09:35-0500 Diastolic blood pressure 70 mm[Hg] Dr. Fela Goldberg Work Phone: [facility] 01-20-2022 09:35-0500 Heart rate 61 /min Dr. Fela Goldberg Work Phone: [facility] 01-20-2022 09:35-0500 Respiratory rate 18 /min Dr. Fela Goldberg Work Phone: [facility] 01-20-2022 09:35-0500 SaO2% (BldA) [Mass fraction] 99 % Dr. Fela Goldberg Work Phone: [facility] 01-20-2022 09:35-0500 Systolic blood pressure 114 mm[Hg] Dr. Fela Goldberg Work Phone: [facility] 11-23-2021 13:40-0400 Body height 160.[address] Fela Goldberg Work Phone: [facility] 11-23-2021 13:40-0400 Body mass index (BMI) [Ratio] 22.6 kg/m2 Dr. Fela Goldberg Work Phone: [facility] 11-23-2021 13:40-0400 Body weight 58.[address] Fela Goldberg Work Phone: [facility] 11-23-2021 13:40-0400 Diastolic blood pressure 76 mm[Hg] Dr. Fela Goldberg Work Phone: [facility] 11-23-2021 13:40-0400 Systolic blood pressure 119 mm[Hg] Dr. Fela Goldberg Work Phone: [facility] 11-16-2021 12:59-0400 Body height 160.[address] Fela Goldberg Work Phone: [facility] Work Phone: 11-16-2021 12:59-0400 Body mass index (BMI) [Ratio] 22.4 kg/m2 Dr. Fela Goldberg Work Phone: [facility] 11-16-2021 12:59-0400 Body temperature 98.8 [degF] Dr. Fela Goldberg Work Phone: [facility] 11-16-2021 12:59-0400 Body weight 57.[address] Fela Goldberg Work Phone: [facility] 11-16-2021 12:59-0400 Diastolic blood pressure 80 mm[Hg] Dr. Fela Goldebrg Work Phone: [facility] 11-16-2021 12:59-0400 Heart rate 97 /min Dr. Fela Goldberg Work Phone: [facility] 11-16-2021 12:59-0400 Respiratory rate 14 /min Dr. Fela Goldberg Work Phone: [facility] 11-16-2021 12:59-0400 SaO2% (BldA) [Mass fraction] 99 % Dr. Fela Goldberg Work Phone: [facility] 11-16-2021 12:59-0400 Systolic blood pressure 120 mm[Hg] Dr. Fela Goldberg Work Phone: [facility] Encounters Encounter Date Encounter Type Care Provider Facility Start: 01-28-2025 ambulatory [facility] Facility :[facility] Start: 01-08-2025 ambulatory [facility] Facility :[facility] Start: 10-29-2024 End: 10-29-2024 Patient encounter procedure Casper Camacho [facility] Work Phone: Start: 10-29-2024 End: 10-29-[address] Fela Goldberg MD Work Phone: [facility] Start: 10-29-2024 End: 10-29-2024 ambulatory Fela Goldberg Facility:[facility] Start: 10-06-2024 End: 10-06-[address] Fela Goldberg MD Work Phone: -Laboratory Start: 10-06-2024 End: 10-06-[address] Fela Goldberg MD -Laboratory Work Phone: Start: 10-06-2024 End: 10-06-2024 ambulatory Fela Goldberg Facility:[facility] Start: 08-23-2024 ambulatory Fela Goldberg Facili ty:[facility] Start: 08-23-2024 Non-patient / Non-visit Dr. Delroy LINDA -[facility] Start: 08-23-2024 End: 08-23-[address] Fela Goldberg MD Work Phone: [facility] Start: 08-23-2024 End: 08-23-2024 Patient encounter procedure Emmanuel Oakley [facility] -[facility] Work Phone: Start: 08-23-2024 End: 08-23-2024 ambulatory [facility] Facility:[facility] Start: 06-26-2024 End: 06-26-[address] Fela Goldberg MD Work Phone: [facility] Work Phone: Start: 06-26-2024 End: 06-26-[address] Fela Goldberg MD -Laboratory Specimen Work Phone: Start: 06-26-2024 End: 06-26-2024 ambulatory [facility] Facility:[facility] Start: 06-11-2024 End: 06-11-[address] Fela Goldberg MD Work Phone: [facility] Work Phone: Start: 06-11-2024 End: 06-11-[address] Fela Goldberg MD -Laboratory Work Phone: Start: 06-11-2024 End: 06-11-2024 ambulatory [facility] Facility:[facility] Start: 06-04-2024 End: 06-04-[address] Fela Goldberg MD -Laboratory Work Phone: Start: 06-04-2024 End: 06-04-2024 ambulatory [facility] Facility:[facility] Start: 03-10-2024 Encounter for genera l adult medical examination without abnormal findings [facility] Start: 02-20-2024 End: 02-20-[address] Fela Goldberg MD -[facility] Work Phone: Start: 02-20-2024 End: 02-20-[address] Fela Goldberg MD [facility] Start: 02-20-2024 End: 02-20-2024 ambulatory [facility] Facility:[facility] Start: 02-20-2024 End: 02-20-2024 ambulatory Fela Goldberg Facility:[facility] Start: 12-30-2023 End: 12-30-2023 ambulatory [facility] Ashish[facility]rystal Facility:[facility] Start: 05-17-2023 End: 05-17-[address] Fela Goldberg Work Phone: [facility] Work Phone: Start: 05-17-2023 End: 05-17-[address] Fela Goldberg Work Phone: [facility] Work Phone: Start: 12-06-2022 End: 12-06-[address] Fela Goldberg Work Phone: [facility] Work Phone: Start: 12-06-2022 End: 12-06-[address] Fela Goldberg Work Phone: [facility] Work Phone: Start: 12-01-2022 End: 12-01-[address] Fela Goldberg Work Phone: [facility] Work Phone: Start: 09-13-2022 End: 09-13-[address] Fela Goldberg Work Phone: [facility] Work Phone: Start: 05-26-2022 End: 05-26-2022 Patient encounter procedure Sima Gonzalez PA-C Work Phone: [facility] Comment on above: Olecranon bursitis o f left elbow (Primary Dx); Skin infection Start: 03-08-2022 End: 03-08-[address] Fela Goldberg Work Phone: [facility] Work Phone: Start: 03-08-2022 End: 03-08-[address] Fela Goldberg Work Phone: [facility] Start: 03-05-2022 End: 03-05-[address] Fela Goldberg Work Phone: [facility] Work Phone: Start: 03-05-2022 End: 03-05-[address] Fela Goldberg Work Phone: [facility] Start: 02-11-2022 End: 02-11-[address] Fela Goldberg Work Phone: [facility] Work Phone: Start: 02-11-2022 End: 02-11-[address] Fela Goldberg Work Phone: [facility] Start: 01-20-2022 End: 01-20-2022 Encounter for general adult medical examination without abnormal findings Dr. Fela Goldberg Work Phone: [facility] Start: 01-20-2022 End: 01-20-[address] Fela Goldberg Work Phone: [facility] Start: 11-23-2021 End: 11-23-[address] Fela Goldberg Work Phone: [facility] Start: 11-16-2021 End: 11-16-[address] Fela Goldberg Work Phone: [facility] Work Phone: Start: 11-16-2021 End: 11-16-[address] Fela Goldberg Work Phone: [facility] Start: 01-21-[address] Fela Goldberg Work Phone: [facility] Procedures Date Procedure Procedure Detail Performing Clinician Start: 10-29-2024 Radex ankle complete minimum [address] Fela Goldberg MD Work Phone: Start: 10-06-2024 Total iron binding c apacity measurement Dr. Fela Goldberg MD Work Phone: Start: 08-23-2024 CT angiography of co ronary [...] Activity Detail Author Start: 05-17-2023 Patient referral [facility] Work Phone: Start: 03-14-2022 Urine microalbumin profile DTAP,TDAP,TD (2 - Td or Tdap) [facility] Start: 02-07-2022 DEPRESSION ASSESSMENT DEPRESSION ASSESSMENT [facility] Start: 03-21-2021 COVID-19 VACCINE (3 - Booster for Moderna series) COVID-19 VACCINE (3 - Booster for Moderna series) [facility] Start: 10-22-2020 COLOGUARD (FIT-DNA) COLOGUARD (FIT-DNA) [facility] Start: 10-22-2020 Colonoscopy COLONOSCOPY [facility] Start: 10-22-2020 COLORECTAL CANCER SCREENING COLORECTAL CANCER SCREENING [facility] Start: 10-22-[address] COLONOGRAPHY [facility] Start: 10-22-2020 DIABETES SCREEN DIABETES SCREEN [facility] Start: 10-22-2020 FECAL OCCULT BLOOD FECAL OCCULT BLOOD [facility] Start: 10-22-2020 LIPID SCREEN LIPID SCREEN [facility] Start: 10-22-2020 SIGMOIDOSCOPY SIGMOIDOSCOPY [facility] Start: 06-04-2020 HPV TESTING HPV TESTING [facility] Start: 06-04-2020 PAP TESTING PAP TESTING [facility] Start: 2015 Mammography MAMMOGRAM [facility] Start: 10-22-1993 HEPATITIS C SCREENING HEPATITIS C SCREENING [facility] Start: 1975 HEPATITIS B (1 of 3 - 3-dose series) HEPATITIS B (1 of 3 - 3-dose series) [facility] MG Breast - bilatera l Screening [facility] Patient referral [facility] Work Phone: Immunizations Immunization Date Immunization Notes Care Provider Cristina coleman 01-20-2022 influenza, injectabl e, quadrivalent, preservative free Dr. Fela Goldberg Work Phone: [facility] 01-20-2022 influenza, seasonal, injectable Dr. Fela Goldberg Work Phone: [facility] 05-24-2020 tetanus toxoid, redu mariposa diphtheria toxoid, and acellular pertussis vaccine, adsorbed Dr. Fela Goldberg Work Phone: [facility] 12-28-2019 influenza, injectable,quadrivalent , preservative free, pediatric Dr. Fela Goldberg Work Phone: [facility] 03-14-2012 tetanus toxoid, redu mariposa diphtheria toxoid, and acellular pertussis vaccine, adsorbed Sima Gonzalez PA-C Work Phone: [facility] Work Phone: Payers Date Payer Category Payer Unknown [id number] 2023 Self-pay [id number] 2023 Unknown [id number] 2022 Private Health Insurance [facility]SIL Singh [facility] [id number] 2022-Present [phone] [address] [place] [address] PPO [id number] 2016 Unknown [id number] Unknown [id number] Unknown [id number] 62 Unknown [id number] 2.16.840.1.300321.3.579.2.4 62 Unknown [id number] 2.16.840.1.489907.3.579.2.4 62 Unknown [id number] 2.16.840.1.491267.3.579.2.4 62 Unknown [id number] 2.16.840.1.518981.3.579.2.4 62 Unknown [id number] 2.16.840.1.619130.3.579.2.4 62 Unknown [id number] 2.16.840.1.743003.3.579.2.4 62 Unknown [id number] 2.16.840.1.828085.3.579.2.4 62 Unknown [id number] 2.16.840.1.870310.3.579.2.4 62 Unknown [id number] 2.16.840.1.698644.3.579.2.4 62 Unknown [id number] 2.16.840.1.662666.3.579.2.4 62 Unknown [id number] 2.16.840.1.583479.3.579.2.4 62 Unknown [id number] 2.16.840.1.451281.3.579.2.4 62 Unknown [id number] 2.16.840.1.550756.3.579.2.4 62 Social History Date Type Detail Facility Start: 11-16-2021 End: 05-17-2023 Tobacco smoking status NHIS Unknown if ever smoked [facility] Start: 1975 Sex Assigned At Female [facility] Start: 05-17-2023 End: 08-23-2024 Tobacco smoking status NHIS Never smoked tobacco [facility] Start: 05-26-2022 Alcohol intake Current non-dr escamilla of alcohol (finding) [facility] Start: 1975 Sex Assigned At Not on file [facility] Sex Female [facility] Clinical Notes 12-10-2010 to 10-29-2024 Note Date & Type Note Facility 10-29-2024 Progress note [facility] 10-29-2024 Radiology Diagnostic study note [facility] Imaging Services [address] [place], [place] [id number] Ankle min 3 Views MR#: [id number] Acct: [id number] Name: CARINA LOPEZ Rep #: [id number] : 1975 F 49 From: Julián Moon MD PCP: Dr. Fela Goldberg MD Status: R EG CLI Study:Ankle min 3 Views Date of Exam: Exam# [id number] Ordering Dr: St remy Camacho PA PROCEDURE: ANKLE MIN 3 VIEWS 10/29/2024 REASON FOR EXAM: RIGHT ANKLE INJURY TECHNIQUE: Procedure Code: RADANK Modality: DX Procedure: ANKLE MIN 3 VIEWS Laterality: Right COMPARISON: None. FINDINGS: Bones: No acute bony abnormalities. Joints: No dislocations. Soft tissues: No soft tissue abnormalities. RAD/Ankle min 3 Views IMPRESSION: No acute bony abnormalities. Reading Location: [facility] CC: Dr. 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 Neeraj Frias MD; Dr. Fela Goldberg MD ~ Signed [facility] Work Phone: 08-23-2024 Evaluation note Diagnosis Onset Date Resolution Acute sinusitis acute August 7:29am [facility] Work Phone: 1(165) 381-584507-17-2025 Evaluation note* Diagnosis Onset Date Resolution Status Admit Date Acute sinusitis acute August 7:29am Contusion of right ankle acute October 29, 2024 1:11pm [facility] Work Phone: 1(190) 657-455507-17-2025 Radiology Diagnostic study note [facility] Imaging Services [address] [place], [place] [id number] Limited Chest CT Cardiac Only MR#: [id number] Acct: [id number] Name: CARINA LOPEZ Rep #: [id number] : 1975 F 48 From: Jorge Fowler MD PCP: Dr. Fela Goldberg MD Status: R EG CLI Study:Limited Chest CT Cardiac Only Date of E xam: 08/23/24 Exam# [id number] Ordering Dr: Chrystal Goldberg MD PROCEDURE: LIMITED [...] Only IMPRESSION: Coronary artery calcification. Reading Location: [place] [address] CC: Dr. Fela Goldberg MD ~ [employer] Manager: Signed [facility]01-13-2025 Evaluation note* Diagnosis Onset Date Resolution Status Admit Date Preventative health care acute February 20, 2024 8:21am [facility] Work Phone: 1(346) 367-178304-19-2023 History of Present illness Narrative* Sima Gonzalez PA-C - 05/26/2022 6:21 PM EDT Images from the original note were not included. This note was created using [employer]. Subjective Carina Lopez is a 46 year [...] DELIVERY ONLY , low transverse DELIVERY ONLY 11/8/11 , low transverse TUBAL LIGATION, 12/15/2010 [place] [...] ER. Sima Gonzalez PA-C [facility] of Past illness Narrative* Problem [...] of this encounter (statuses as of 05/27/2022) [facility] Diagnosis Onset Date Resolution Status Contusion of right hand, initial encounter acute [facility] Work Phone: Evaluation note* Diagnosis Onset Date Resolution Status Contusion of right hand, initial encounter acute Encounter for routine gynecological examination noneactive Preventative health care acu te [facility] Work Phone: Evaluation note* Diagnosis Onset Date Resolution Status Encounter for routine gynecological examination noneactive Preventative health care acu te [facility] Work Phone: Evaluation note* Diagnosis Olecranon bursitis of left elbow- Primary Olecranon bursitis Skin infection Unspecified local infection of skin and subcutaneous tissue documented [facility] this encounter [facility] Diagnosis Onset Date Resolution Status Traveler's diarrhea acute Breast mass in female acute Encounter for routine gynecological examination noneactive [facility] Work Phone: Evaluation note* Diagnosis Onset Date Resolution Status Bunion, left acute [facility] Work Phone: Evaluation noteNo assessment information available [facility] Work Phone: Progress note Author Casper Camacho [facility] Note Date/Time October 29, 2024 1:56pm [facility] [address], [address] [place] [address] OFFICE VISIT Date of Service: 10/29/24 MR#: [id number] Acct: [id number] Name: CARINA LOPEZ Daija Rep #: [id number] : 1975 Provider: CARRIE Chang Age/Sex: 49/F Location: [facility] Status: Signed Intake Vital Signs 08/23/24 07:24 10/29/24 13:27 Height 5 ft 5 in 5 ft 5 in Weight: 132 lb 6 oz BMI 22.0 Body Surface Area 98.3 BP 110/62 114/62 Blood Pressure Location Lt brachial Lt brachial Position Sitting Sitting Respiration 15 Pulse 69 67 Pulse Source NIBP Monitor Temp 98.4 F Temp Source Oral Oral Pulse Oximetry (%) 98 98 Oxygen Delivery Method room air room air Intake Visit Reasons: R ANKLE PAIN / HIT BY GOLF BALL X 2WKS AGO Chief Complaint: ankle pain Accompanied by: Self Allergies No Known Allergies Allergy (Verified 10/29/24 13:12) Medications ?Medication ?Instructions ?Recorded ?Confirmed ?Type psyllium husk 3.4 gram/5.4 gram 1 tbsp PO DAILY 10/29/24 History oral powder (Metamucil) multivitamin (One Daily 1 tab PO DAILY 01/20/2210/09 History Multivitamin tablet) atorvastatin 20 mg tablet 20 mg PO DAILY #90 TABLETS 0 08/02/24 10/29/24 Rx Nurse's Note: Right ankle was hit with a golf ball. Inside of ankle. X 2 weeks ago. 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 No locking or giving way with pain aggravated touch with prolonged weightbearing, alleviated with sit/rest. No [id number] medications taken to assist. PMH NC. No other associated symptoms and no other alleviating/aggravating factors. ROS Const Constitutional: No other (As above) Exam Const General: cooperative, healthy appearing and no acute distress Nutritional Appearance: average body habitus Orientation: alert and awake Resp Effort & Inspection: normal respiratory effort and able to speak in complete sentences Cardio Rate: regular rate Rhythm: regular rhythm Pulses: radial pulses present Skin General: no rashes or lesions noted Neuro General: patient alert and patient awake Cognition: normal cognition Speech: speech normal Gait: normal gait Extrem General: normal to inspection (Right medial ankle complaint tender to palpation,suspect swelling) Psych Appearance: grossly normal Mental Status: mental status grossly normal Mood: congruent mood Affect: normal affect Speech and Movement: speech and movement normal Attitude: cooperative Coding Level of Care Code Off vis,est,level 4 Diagnoses Contusion of right ankle S90.01XA Assessment and Plan Assessment and Plan (1) Contusion of right ankle: Status: Acute Plan: Right ankle radiographs reveal no acute osseous pathology per my review, pendingradiologist interpretation at the time patient discharge. Rest, ice, elevate, NSAIDs as needed for symptomatic relief. Follow-up with PCP in several days should symptoms persist, sooner should symptoms only worsen or any other concerns develop. Patient states acknowledging understanding all the above. This note was generated with [employer] dictation software. It may contain incorrectwords, spelling, and punctuation that were not noted in checking the note beforesigning. 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 Reason for Visit Contusion of right h and, initial encounter Encounter for routine gynecological examination Preventative health care Chief Complaint 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 SCREENING ABNORMAL MAMMOGRAM Reason for Visit Encounter for routin e gynecological examination Preventative health care Chief Complaint DIARRHEA X5 DAYS 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 Reason for Visit Traveler's diarrhea Breast [...] Acute sinusitis August 23, 2024 7:29 am Chief Complaint Admit Date E78.5 Hyperlipidemia, unspecified August 072024 6:54am CONCERN FOR SINUS INFECTION August 23 7:29am E78.5 Hyperlipidemia, unspecified August 072024 12:18pm E ORDER October 06, 2024 8: 55am Chief Complaint Admit Date E78.5 Hyperlipidemia, unspecified August 072024 6:54am CONCERN FOR SINUS INFECTION August 23 7:29am E78.5 Hyperlipidemia, unspecified August 072024 12:18pm E ORDER October 06, 2024 8: 55am R ANKLE PAIN / HIT BY GOLF BALL X 2WKS A GO October 29, 2024 1:11pm Right Ankle Injury October 29, 2024 1:14pm Reason for Visit Admit Date Acute sinusitis August 23, 2024 7:29 am Contusion of right ankle October 29, 2024 1:11pm Family History No Family History Records Found Relationship Condition Age at Onset Recorded Date/T talha father Hypertension Unknown Malignant neoplasm Unknown mother Malignant neoplasm Unknown Advance Directives No Advanced Directives Records Found Advance Directive Response Recorded Date/ Time Living Will No March 16 9:33am Power of Dinkey Dispatcher No March 16, 2021 9:33am Advance Directive Response Recorded Date/ Time Living Will No March 16 8:33am Power of Dinkey Dispatcher No March 16, 2021 8:33am Advance Directive Response Recorded Date/ Time Living Will No September 13, 2022 9:50am Power of Dinkey Dispatcher No September 13 9:50am Advance Directive Response Recorded Date/ Time Living Will No September 13, 2022 9:50am Do you have a [facility] Power of Dinkey Dispatcher? No September 13, 2022 9:50am Summary Purpose [...] Active Aneta Guillermo CNM Attending Provider Active [employer] Relationship Specialty Start Date End Date Carina Fenton DO PCP - General Family Medicine 12/11/14 Team Status: Inactive Member Role Status Dates Dr. Fela Goldberg MD Primary Care Provider, Refer ring Provider Active CARRIE Calles Attending Provider Active Team Status: Inactive Member [...] Provider Active S tart: August 23, 2024 Team Status: Inactive Member Role/Relationship Status Dates Dr. Fela Goldberg MD Primary Care Provider Active Start: June 26, 2024 End: June 26, 2024 Dr. Fela Goldberg MD Attending Provider Active Start: June 26, 2024 End: June 26, 2024 Dr. Fela Goldberg MD Referring Provider Active Start: June 26, 2024 End: June 26, 2024 Team Status: Inactive Member Role/Relationship Status [...] Provider Active S tart: August 23, 2024 Team Status: Inactive Member Role/Relationship Status Dates Dr. Fela Goldberg MD Primary Care Provider Active Start: October 06, 2024 End: October 06, 2024 Dr. Fela Goldberg MD Attending Provider Active Start: October 06, 2024 End: October 06, 2024 Dr. Fela Goldberg MD Referring Provider Active Start: October 06, 2024 End: October 06, 2024 Team Status: Active Member Role/Relationship Status Dates Dr. Fela Goldberg MD Primary care physician Activ e Team Status: Inactive Member Role/Relationship Status Dates Dr. Fela Goldberg MD Primary care physician Activ e Start: August 23, 2024 End: August 23, 2024 Dr. Fela Goldberg MD Attending physician Active Start: August 23, 2024 End: August 23, 2024 Dr. Fela Goldberg MD Referring Provider Active Start: August 23, 2024 End: August 23, 2024 Team Status: Inactive Member Role/Relationship Status Dates Dr. Fela Goldberg MD Primary care physician Activ e Start: August 23, 2024 End: August 23, 2024 Dr. Fela Goldberg MD Referring Provider Active Start: August 23, 2024 End: August 23, 2024 Emmanuel BUTLER PA Attending physician Active St art: August 23, 2024 End: August 23, 2024 Team Status: Active Member Role/Relationship Status Dates Dr. Fela Goldberg MD Primary care physician Activ e Start: August 23, 2024 Dr. Fela Goldberg MD Referring Provider Active Start: August 23, 2024 Dr. Fela Goldberg MD Nurse Practitioner Active Start: August 23, 2024 Dr. Neeraj Frias MD Attending physician Active Start: August 23, 2024 Team Status: Inactive Member Role/Relationship Status Dates Dr. Fela Goldberg MD Primary care physician Activ e Start: October 06, 2024 End: October 06, 2024 Dr. Fela Goldberg MD Attending physician Active Start: October 06, 2024 End: October 06, 2024 Dr. Fela Goldberg MD Referring Provider Active Start: October 06, 2024 End: October 06, 2024 Team Status: Inactive Member Role/Relationship Status Dates Dr. Fela Goldberg MD Primary care physician Activ e Start: October 29, 2024 End: October 29, 2024 Dr. Fela Goldberg MD Referring Provider Active Start: October 29, 2024 End: October 29, 2024 Casper BUTLER PA Attending physician Active Start: October 29, 2024 End: October 29, 2024 Team Status: Active Member Role/Relationship Status Dates Dr. Fela Goldberg MD Primary care physician Activ e Start: October 29, 2024 Casper BUTLER PA Attending physician Active Start: October 29, 2024 Casper BUTLER PA Referring Provider Active Start: October 29, 2024 Team Status: Inactive Member Role/Relationship Status Dates Dr. Fela Goldberg MD Primary care physician Activ e Start: October 29, 2024 End: October 29, 2024 CARRIE Calles Attending physician Active Start: October 29, 2024 End: October 29, 2024 CARRIE Calles Referring Provider Active Start: October 29, 2024 End: October 29, 2024 Source Comments (unrecognize d section and content) In the event this informatio n is protected by the Federal Confidentiality of Alcohol and Drug Abuse Patient Records regulations: The Federal rules restrict any use of the information to criminally investigate or prosecute any alcohol or drug abuse patient.[facility] Reason for Visit (unrecogniz ed section and content) Reason Comments Derm Problem Insect bite L elbow, now infected x1 week INFORMATION SOURCE (unrecogn ized section and content) DATE CREATED AUTHOR 12/17/2024 [facility] FOR RECORDS PERTAINING TO PATIENTS [...] BE BASED ON THE PRIMARY CLINICAL RECORDS. [employer] provides no warranty or guarantee of the accuracy or completeness of information in this document.
[2025-01-29 20:08] LABS: HPV APTIMA, High Risk Negative (Negative)
== END | disposition home or self-care (01) ==
LOC: LABSPEC 12:04
PROVIDERS: PCP Internal Medicine; Visit Provider Nurse Practitioner Family
DX: Z12.4 Encounter for screening for malignant neoplasm of cervix (principal)
CPT/HCPCS: 87624; 88175; G0145